=== PATIENT | male | born 1980 | race Caucasian/White ===

== ENCOUNTER 2017-10-27 03:43 | Inpatient (IN) | payer MEDICAID, SELFPAY ==
[2017-10-27] VITALS (18 sets, daily range): BP systolic 131–161; BP diastolic 74–83; PULSE 81–101; RESP 12–24; TEMP 36.8–37; O2SAT 77–95; BMI 53.8; BMI 42.6
--- NOTE | 2017-10-27 03:55 | CT_ITS ---
STUDY: CT BRAIN WITHOUT CONTRAST REASON FOR EXAM: Male, 37 years old. EtOH. History of schizophrenia. Patient is off psych meds. Patient was brought in for evaluation by the police. RADIATION DOSAGE (If Supplied By Facility): CTDIvol = ( 44.99 ) mGy, DLP = ( 829.85 ) mGycm TECHNIQUE: Transaxial CT imaging of the brain was performed without administration of intravenous contrast material. Individualized dose optimization techniques were used for this CT. COMPARISON: None. FINDINGS: Normal soft tissue structures. Normal calvarium. Normal size ventricles and extra-axial spaces for the patient's age. Normal white matter tracts of the cerebral hemispheres. Normal basal ganglia and thalami. Normal brainstem. Normal cerebellum. There is no intracranial hemorrhage. There are no findings of an acute ischemic infarction. Normal visualized paranasal sinuses. CT/Brain/Head without Contrast IMPRESSION: Normal unenhanced CT scan of the brain. Electronically Signed: Ramakrishna Manrique MD at 5:11 EDT , Service support ,
--- NOTE | 2017-10-27 03:55 | EKG12_ITS ---
Test Reason : MENTAL HEALTH Blood Pressure : / mmHG Vent. Rate : 085 BPM Atrial Rate : 085 BPM P-R Int : 164 ms QRS Dur : 104 ms QT Int : 388 ms P-R-T Axes : 080 015 056 degrees QTc Int : 461 ms Normal sinus rhythm with sinus arrhythmia Normal ECG Confirmed by ART HERNANDEZ, VENKATA ([id number]), assistant film editor BENSON LYNCH ([id number]) on 10/28/2017 3:14:46 PM Referred By: CHACHA Confirmed By:VENKATA CORDOVA MD
[2017-10-27 04:01] LABS: Bedside Glucose 128 mg/dL (70-110)
[2017-10-27] MEDS: Ipratropium/Albuterol Sulfate 3 ML AMPUL.NEB INHALATION ×2 (04:08→20:30)
[2017-10-27 04:16] LABS: Absolute Neutrophil Count 7.8 X10^3/uL (2.0-7.7); Basophil# 0.03 X10^3/uL; Basophil% 0.3 % (0-1); Eosinophil# 0.14 X10^3/uL; Eosinophils% 1.4 % (0-5); Hematocrit 46.7 % (40-54); Hemoglobin 15.1 g/dl (13.0-16.5); Lymphocyte % 11.1 % (19-41); Mean Corp Hgb Conc 32.3 g/gl (32-36); Mean Corpuscular Hgb 29.5 pg (27.0-32.0); Mean Corpuscular Volume 91.4 fL (80-94); Mean Platelet Vol. 9.9 fl (6.2-12.0); Monocyte# 0.85 X10^3/uL; Monocyte% 8.6 % (0-10); Neutrophil # 7.77 X10^3/uL (2.7-7.7); Neutrophil % 78.3 % (47-70); Platelet Count 286 K/mm3 (150-450); RBC Distribution Width CV 14.9 % (11.6-14.6); RBC Distribution Width SD 48.4 fl (35.1-43.9); Red Blood Count 5.11 M/mm3 (4.6-6.2); White Blood Count 9.9 K/mm3 (4.4-11.0)
[2017-10-27 04:27] LABS: POSITIVE COUNT NO; POSITIVE DIFFERENTIAL NO; POSITIVE MORPHOLOGY NO
[2017-10-27 04:32] LABS: ALB/GLOB Ratio 0.6 RATIO (0.9-2.4); AST(SGOT) 24 U/L (15-37); Alanine Aminotransfer ALT/SGPT 26 U/L (16-61); Albumin, Serum 2.7 g/dL (3.2-5.0); Alkaline Phosphatase 78 U/L (45-117); Anion Gap 7 (5-15); BUN 7 mg/dL (7-18); Calcium,Total 8.1 mg/dL (8.5-10.1); Chloride 105 mmol/L (98-107); Creatinine, Serum 0.58 mg/dL (0.70-1.30); EST Glomerular Filtration Rate 165 mL/min (>60); Est Glom Filt Rate - Afr Amer 200 mL/min (>60); Globulin 4.6 g/dL (2.2-4.2); Glucose 117 mg/dL (74-106); Potassium 3.7 mmol/L (3.5-5.1); Protein, Total 7.3 g/dL (6.4-8.2); Sodium Level 141 mmol/L (136-145)
--- NOTE | 2017-10-27 04:38 | RAD_ITS ---
STUDY: X-RAY CHEST REASON FOR EXAM: Male, 37 years old. Dyspnea. TECHNIQUE: Single AP portable view of the chest. COMPARISON: 12/09/2016. FINDINGS: The lungs are mildly underexpanded. There is no demonstrated pulmonary infiltrate. There is no demonstrated pleural abnormality. There is mild cardiac enlargement. Normal mediastinum and eladio. Normal visualized pulmonary arteries. Normal visualized aortic arch and descending thoracic aorta. Normal visualized thoracic spine. Normal visualized ribs, clavicles, and shoulders. There is no demonstrated abnormality of the visualized soft tissue structures of the upper abdomen. RAD/Chest 1 View (Portable) IMPRESSION: Cardiomegaly. No evidence for acute cardiopulmonary pathology. Electronically Signed: Ramakrishna Manrique MD at 5:19 EDT , Service support ,
--- NOTE | 2017-10-27 04:56 | NURSING ---
PATIENT GOT UP TO THE RR TO GET A URINE SPECIMEN. PATIENT VOIDED IN THE TOILET, AND THREW THE URINE CUP AWAY. PATIENT STATED I KEEP BLACKING OUT AND MY MIND ISN'T WORKING RIGHT.
--- NOTE | 2017-10-27 04:57 | NURSING ---
PATIENT DOES NOT KNOW MEDICATIONS OR ALLERGIES.
[2017-10-27 05:04] LABS: Alcohol, Blood (Medical)-Serum < 3.0 mg/dL
[2017-10-27 05:31] LABS: Allen Test POS; Base Excess 3 mmol/L (-2 to +2); Bicarbonate 28.4 mmol/L (22-26); Blood Gas Specimen Type ART; O2 Delivery Device Nasal Can; PO2 64 mmHG (75-100); SITE R Radial; SO2 90 % (95-99); Time Given 520; Total Carbon Dioxide 30 mmol/L; pCO2 51.6 mmHg (35-45); pH 7.35 (7.35-7.45)
[2017-10-27] MEDS: MethylPREDNISolone 125 MG/2 ML Vial IV (05:36)
[2017-10-27 05:51] LABS: BNP,B-Type NATRIURETIC PEPTIDE 8.5 pg/mL (0-100)
--- NOTE | 2017-10-27 06:06 | PCM.HP.STD ---
Problem List (1) COPD (chronic obstructive pulmonary disease) Status: Chronic Qualifiers: COPD type: unspecified COPD Qualified Code(s): J44.9 - Chronic obstructive pulmonary disease, unspecified (2) Morbid obesity Status: Chronic (3) SHANAE (obstructive sleep apnea) Status: Chronic (4) Chronic respiratory failure with hypoxia Status: Chronic (5) Acute respiratory failure with hypoxia and hypercapnia Status: Acute (6) COPD exacerbation Status: Acute (7) Tobacco use Status: Chronic (8) GERD (gastroesophageal reflux disease) Status: Chronic Qualifiers: Esophagitis presence: esophagitis presence not specified Qualified Code(s): K21.9 - Gastro-esophageal reflux disease without esophagitis (9) Bipolar disorder Status: Chronic Qualifiers: Active/Remission status: remission status unspecified Qualified Code(s): F31.9 - Bipolar disorder, unspecified (10) Schizophrenia Status: Chronic Qualifiers: Schizophrenia type: unspecified Qualified Code(s): F20.9 - Schizophrenia, unspecified (11) HTN (hypertension) Status: Chronic Qualifiers: Hypertension type: essential hypertension Qualified Code(s): I10 - Essential (primary) hypertension History of Present Illness Date of Admission: 10/27/17 Chief Complaint: Found per Police, attempting to get into house The patient is a 37 y/o M w/ PMHx: Bipolar d/o, Schizophrenia, GERD, Morbid Obesity, Tobacco use, SHANAE, Chronic COPD w/ Chronic Hypoxic Respiratory Failure, HTN who presents to the [facility] ED on 10/27/17 who presents to the [facility] ED on 02/04/15 w/ history of being found by police attempting to enter a home, noting that he thought it was his families home with recent EtOH intake, unclear possible drug intake and possibly off his psychiatric regimen. He is sluggish but awakens and does admit to recent cough, mildly productive with possible fever, dyspnea and wheezing over the last several days. He denies BL LE pain, worsened edema or redness, notes they are routinely mildly red. In the ED work-up included T 98.4, HR 101, BP 145/81, RR 24, initially 77% on RA-->94% on 3L NC, CBC w/ WBC 9.9, Hgb 15.1, Plts 286 with L shift, ABG w/ pH 7.35, Bicarb 28.4, O2 90%, pCO2 51.6, pO2 64, CMP w/ glucose 117, trop < 0.02, EKG with SR without acute evidence of ischemia, CXR with chronic changes, CT head without acute findings. In the ED patient administered duoneb, solumedrol, rocephin. Past Medical History Past Medical History (Chronic Problems): Chronic Problems COPD (chronic obstructive pulmonary disease) (Chronic) Morbid obesity (Chronic) SHANAE (obstructive sleep apnea) (Chronic) Chronic respiratory failure with hypoxia (Chronic) Tobacco use (Chronic) HTN (hypertension) (Chronic) GERD (gastroesophageal reflux disease) (Chronic) Bipolar disorder (Chronic) Schizophrenia (Chronic) Allergies PINK EYE MEDICATION Allergy (Uncoded 10/27/17 05:09) Unknown Home Medications: Ambulatory Orders Medication Instructions Recorded Aspirin [Aspirin, Baby] 81 mg PO DAILY@0800 10/27/17 Haloperidol [Haldol] 10 mg PO DAILY 10/27/17 Lisinopril [Prinivil] 10 mg PO DAILY 10/27/17 Loratadine [Loratadine] 10 mg PO DAILY 10/27/17 Surgical History: no surgical history Psychiatric History: Bipolar, Schizophrenia Lives: Alone Smoking Status: Current every day smoker Tobacco Use: Cigarettes Alcohol: Occasional Drugs: - - Prior history, pending UDS, currently poor historian. - *Family History Maternal History Items: No pertinent history Paternal History Items: No pertinent history Review of Systems Constitutional: Reports: Fever, Malaise, Weakness, Fatigue. Denies: Chills, Weight Change HEENT: Denies: Head Aches, Sinus Congestion, Sinus Drainage Cardiovascular: Denies: Chest Pain, Palpitations Respiratory: Reports: Cough, Shortness of Breath, Shortness of breath at rest, Shortness of breath upon exertion, Sputum production, Wheezing Gastrointestinal: Denies: Abdominal Pain, Nausea, Vomiting Genitourinary: Denies: Dysuria Musculoskeletal: Denies: Joint Pain, Joint Tenderness Skin: Reports: Skin Changes. Denies: Rash, Wounds Neurological: Denies: Numbness, Tingling, Focal weakness Psychiatric: Reports: Anxiety, Depression. Denies: Homicidal Ideations, Suicidal Ideations Hematologic/ Lymphatic: Denies: Easy Bruising, Easy Bleeding VTE Information - Inpt Only VTE Present on Admission: No VTE Mechan Device Prophylaxis: SCD's VTE Pharm Prophylaxis ordered?: Yes Patient Problems: Active and Suspected Problems Acute respiratory failure with hypoxia and hypercapnia (Acute) COPD exacerbation (Acute) Subjective: Seated upright in the ED bed, sluggish, intermittently awakening, mildly gruff. Objective: Physical Examination: General: awakens intermittently, not markedly alert, oriented to self and some recent events, poor historian, mildly agitated. Skin: normal color, turgor, no icterus, cyanosis except BL LE chronic venous stasis skin changes. HEENT: AT/NC, EOMI, PERRLA, dry, injected scleral BL. Lungs: Diminished bases, poor effort, occasional expiratory wheezing noted. Heart: Regular rate and rhythm; no gallop, rub audible, distant. Abdomen: soft, morbidly obese, NTTP, ND, normal BS. Extremities: no cyanosis, clubbing, BL LE 1+ pitting edema ankle, BL LE distal mild redness, more consistent with chronic venous stasis. Neurological: awakens intermittently, not markedly alert, oriented to self and some recent events, poor historian, mildly agitated; cognitive function not intact; pupils equally reactive to light and accomodation, injected; cranial nerves II-XII grossly normal, moving all 4 extremities, strength difficult to assess, severely globally decreased. Psychiatric: affect appears mildly agitated, no acute evidence of depressive or anxiety feelings. - Physical Exam Vital Signs Temp Pulse Resp BP Pulse Ox 98.4 F 99 24 H 145/81 H 92 10/27/17 05:12 10/27/17 05:12 10/27/17 05:12 10/27/17 05:12 10/27/17 05:12 Oxygen Flow Rate (L/min) 3 Oxygen Delivery Method Nasal Cannula Weight: 313 lb 7.957 oz Body Mass Index (BMI) 53.8 Laboratory Tests Past 24 Hrs 10/27/17 10/27/17 10/27/17 04:08 04:08 04:08 WBC 9.9 RBC 5.11 Hgb 15.1 Hct 46.7 MCV 91.4 MCH 29.5 MCHC 32.3 RDW 14.9 H RDW Differential 48.4 H Plt Count 286 MPV 9.9 Immature Gran % (Auto) 0.300 Neut % (Auto) 78.3 H Lymph % (Auto) 11.1 L [place] % (Auto) 8.6 Eos % (Auto) 1.4 Baso % (Auto) 0.3 Absolute Neuts (auto) 7.8 H Absolute Lymphs (auto) 1.10 Total Counted Not Reportable Specimen Type Sample Site pH Bicarbonate Actual POC Total CO2 Base Excess O2 Saturation ABG pCO2 ABG pO2 Darnell Test O2 Delivery Device Liter Flow Blood Gas Notified Whom Blood Gas Notified Time Sodium 141 Potassium 3.7 Chloride 105 Carbon Dioxide 29.0 Anion Gap 7 BUN 7 Creatinine 0.58 L Estim Creat Clear Calc 144.60 Est GFR (MDRD) Af Amer 200 Est GFR (MDRD) Non-Af 165 BUN/Creatinine Ratio 12.0 Glucose 117 H Calcium 8.1 L Total Bilirubin 0.40 AST 24 ALT 26 Alkaline Phosphatase 78 Troponin I B-Natriuretic Peptide Total Protein 7.3 Albumin 2.7 L Globulin 4.6 H Albumin/Globulin Ratio 0.6 L Ethyl Alcohol < 3.0 10/27/17 10/27/17 10/27/17 04:08 04:08 05:27 WBC RBC Hgb Hct MCV MCH MCHC RDW RDW Differential Plt Count MPV Immature Gran % (Auto) Neut % (Auto) Lymph % (Auto) [place] % (Auto) Eos % (Auto) Baso % (Auto) Absolute Neuts (auto) Absolute Lymphs (auto) Total Counted Specimen Type ART Sample Site R Radial pH 7.35 Bicarbonate Actual 28.4 H POC Total CO2 30 Base Excess 3 H O2 Saturation 90 L ABG pCO2 51.6 H ABG pO2 64 L Darnell Test POS O2 Delivery Device Nasal Can Liter Flow 3.0 Blood Gas Notified Whom ED MD Blood Gas Notified Time 520 Sodium Potassium Chloride Carbon Dioxide Anion Gap BUN Creatinine Estim Creat Clear Calc Est GFR (MDRD) Af Amer Est GFR (MDRD) Non-Af BUN/Creatinine Ratio Glucose Calcium Total Bilirubin AST ALT Alkaline Phosphatase Troponin I < 0.02 B-Natriuretic Peptide 8.5 Total Protein Albumin Globulin Albumin/Globulin Ratio Ethyl Alcohol POC Glucose 10/27/17 03:58 POC Glucose 128 H Assessment/Plan Active and Suspected Problems Acute respiratory failure with hypoxia and hypercapnia (Acute) COPD exacerbation (Acute) The patient is a 37 y/o M w/ PMHx: Bipolar d/o, Schizophrenia, GERD, Morbid Obesity, Tobacco use, SHANAE, Chronic COPD w/ Chronic Hypoxic Respiratory Failure, HTN who presents to the [facility] ED on 4/16/18, who presents to the [facility] ED on 02/04/15 w/ history of being found by police attempting to enter a home, noting that he thought it was his families home with recent EtOH intake, unclear possible drug intake and possibly off his psychiatric regimen with recent possible mildly productive cough, dyspnea and wheezing not using his rx 2L NC. (1) Acute Hypoxic and Hypercarbic Respiratory Failure on Chronic Hypoxic Respiratory Failure secondary to Acute on chronic COPD exacerbation: Will admit to PCU, maintain on oxygen with wean as tolerated to home oxygen supplementation, continue ATC duonebs, PRN albuterol, IV methylprednisolone, HOB, IS parameters, IV rocephin to also concurrently treat possible #2, pending sputum cultures. (2) BL LE ? Extremity Cellulitis, Noted per ED, Suspect more likely Chronic Venous Stasis Skin Changes: Will as noted maintain on IV rocephin, continue affected extremity elevation above heart when seated and in bed, monitor erythema outline with VS checks, ACEI wraps. (3) Encephalopathy: Multifactorial, possible drug usage, EtOH ingestion, acute hypoxic and hypercarbic (mild) respiratory failure, continue treatment of #1, #2 and #4. (4) Bipolar d/o, Schizophrenia: Off medications, unclear timeline, poor historian, restart home oral haldol regimen, PRN haldol. Once medically appropriate may need discharge to psychiatric facility. (5) Hypertension: Restart home lisinopril, PRN hydralazine. (6) Morbid Obesity: Weight loss and lifestyle changes encouraged, nutrition consulted. (7) Hyperglycemia: Admission glucose mildly elevated, prior HgbA1c 6.4% remotely, will repeat HgBA1c. (8) Tobacco Abuse: Encouraged cessation, inpatient consultation per RT, NR if desired. (9) SHANAE: Unclear if on CPAP/BIPAP q HS, noted visits for assessment. (10) GERD: Famotidine. (11) DVT prophylaxis: SCDs, lovenox. Code Visit Inpatient E&M: 19953 Init Hosp L3
[2017-10-27] MEDS: Ceftriaxone 1 GM/50 ML BAG IV (06:09)
--- NOTE | 2017-10-27 06:16 | HP.PCM_ITS ---
Problem List (1) COPD (chronic obstructive pulmonary disease) Status: Chronic Qualifiers: COPD type: unspecified COPD Qualified Code(s): J44.9 - Chronic obstructive pulmonary disease, unspecified (2) Morbid obesity Status: Chronic (3) SHANAE (obstructive sleep apnea) Status: Chronic (4) Chronic respiratory failure with hypoxia Status: Chronic (5) Acute respiratory failure with hypoxia and hypercapnia Status: Acute (6) COPD exacerbation Status: Acute (7) Tobacco use Status: Chronic (8) GERD (gastroesophageal reflux disease) Status: Chronic Qualifiers: Esophagitis presence: esophagitis presence not specified Qualified Code(s) : K21.9 - Gastro-esophageal reflux disease without esophagitis (9) Bipolar disorder Status: Chronic Qualifiers: Active/Remission status: remission status unspecified Qualified Code(s): F31.9 - Bipolar disorder, unspecified (10) Schizophrenia Status: Chronic Qualifiers: Schizophrenia type: unspecified Qualified Code(s): F20.9 - Schizophrenia, unspecified (11) HTN (hypertension) Status: Chronic Qualifiers: Hypertension type: essential hypertension Qualified Code(s): I10 - Essential (primary) hypertension History of Present Illness Date of Admission: 10/27/17 Chief Complaint: Found per Police, attempting to get into house The patient is a 37 y/o M w/ PMHx: Bipolar d/o, Schizophrenia, GERD, Morbid Obesity, Tobacco use, SHANAE, Chronic COPD w/ Chronic Hypoxic Respiratory Failure, HTN who presents to the [facility] ED on 10/27/17 who presents to the [facility] ED on 02/04/15 w/ history of being found by police attempting to enter a home, noting that he thought it was his families home with recent EtOH intake, unclear possible drug intake and possibly off his psychiatric regimen. He is sluggish but awakens and does admit to recent cough, mildly productive with possible fever, dyspnea and wheezing over the last several days. He denies BL LE pain, worsened edema or redness, notes they are routinely mildly red. In the ED work-up included T 98.4 , HR 101, BP 145/81, RR 24, initially 77% on RA-->94% on 3L NC, CBC w/ WBC 9.9, Hgb 15.1, Plts 286 with L shift, ABG w/ pH 7.35, Bicarb 28.4, O2 90%, pCO2 51.6 , pO2 64, CMP w/ glucose 117, trop < 0.02, EKG with SR without acute evidence of ischemia, CXR with chronic changes, CT head without acute findings. In the ED patient administered duoneb, solumedrol, rocephin. Past Medical History Past Medical History (Chronic Problems): Chronic Problems COPD (chronic obstructive pulmonary disease) (Chronic) Morbid obesity (Chronic) SHANAE (obstructive sleep apnea) (Chronic) Chronic respiratory failure with hypoxia (Chronic) Tobacco use (Chronic) HTN (hypertension) (Chronic) GERD (gastroesophageal reflux disease) (Chronic) Bipolar disorder (Chronic) Schizophrenia (Chronic) Allergies PINK EYE MEDICATION Allergy (Uncoded 10/27/17 05:09) Unknown Home Medications: Ambulatory Orders Medication Instructions Recorded Aspirin [Aspirin, Baby] 81 mg PO DAILY@0800 10/27/17 Haloperidol [Haldol] 10 mg PO DAILY 10/27/17 Lisinopril [Prinivil] 10 mg PO DAILY 10/27/17 Loratadine [Loratadine] 10 mg PO DAILY 10/27/17 Surgical History: no surgical history Psychiatric History: Bipolar, Schizophrenia Lives: Alone Smoking Status: Current every day smoker Tobacco Use: Cigarettes Alcohol: Occasional Drugs: - - Prior history, pending UDS, currently poor historian. - *Family History Maternal History Items: No pertinent history Paternal History Items: No pertinent history Review of Systems Constitutional: Reports: Fever, Malaise, Weakness, Fatigue. Denies: Chills, Weight Change HEENT: Denies: Head Aches, Sinus Congestion, Sinus Drainage Cardiovascular: Denies: Chest Pain, Palpitations Respiratory: Reports: Cough, Shortness of Breath, Shortness of breath at rest, Shortness of breath upon exertion, Sputum production, Wheezing Gastrointestinal: Denies: Abdominal Pain, Nausea, Vomiting Genitourinary: Denies: Dysuria Musculoskeletal: Denies: Joint Pain, Joint Tenderness Skin: Reports: Skin Changes. Denies: Rash, Wounds Neurological: Denies: Numbness, Tingling, Focal weakness Psychiatric: Reports: Anxiety, Depression. Denies: Homicidal Ideations, Suicidal Ideations Hematologic/ Lymphatic: Denies: Easy Bruising, Easy Bleeding VTE Information - Inpt Only VTE Present on Admission: No VTE Mechan Device Prophylaxis: SCD's VTE Pharm Prophylaxis ordered?: Yes Patient Problems: Active and Suspected Problems Acute respiratory failure with hypoxia and hypercapnia (Acute) COPD exacerbation (Acute) Subjective: Seated upright in the ED bed, sluggish, intermittently awakening, mildly gruff. Objective: Physical Examination: General: awakens intermittently, not markedly alert, oriented to self and some recent events, poor historian, mildly agitated. Skin: normal color, turgor, no icterus, cyanosis except BL LE chronic venous stasis skin changes. HEENT: AT/NC, EOMI, PERRLA, dry, injected scleral BL. Lungs: Diminished bases, poor effort, occasional expiratory wheezing noted. Heart: Regular rate and rhythm; no gallop, rub audible, distant. Abdomen: soft, morbidly obese, NTTP, ND, normal BS. Extremities: no cyanosis, clubbing, BL LE 1+ pitting edema ankle, BL LE distal mild redness, more consistent with chronic venous stasis. Neurological: awakens intermittently, not markedly alert, oriented to self and some recent events, poor historian, mildly agitated; cognitive function not intact; pupils equally reactive to light and accomodation, injected; cranial nerves II-XII grossly normal, moving all 4 extremities, strength difficult to assess, severely globally decreased. Psychiatric: affect appears mildly agitated, no acute evidence of depressive or anxiety feelings. - Physical Exam Vital Signs Temp Pulse Resp BP Pulse Ox 98.4 F 99 24 H 145/81 H 92 10/27/17 05:12 10/27/17 05:12 10/27/17 05:12 10/27/17 05:12 10/27/17 05:12 Oxygen Flow Rate (L/min) 3 Oxygen Delivery Method Nasal Cannula Weight: 313 lb 7.957 oz Body Mass Index (BMI) 53.8 Laboratory Tests Past 24 Hrs 10/27/17 10/27/17 10/27/17 04:08 04:08 04:08 WBC 9.9 RBC 5.11 Hgb 15.1 Hct 46.7 MCV 91.4 MCH 29.5 MCHC 32.3 RDW 14.9 H RDW Differential 48.4 H Plt Count 286 MPV 9.9 Immature Gran % (Auto) 0.300 Neut % (Auto) 78.3 H Lymph % (Auto) 11.1 L [place] % (Auto) 8.6 Eos % (Auto) 1.4 Baso % (Auto) 0.3 Absolute Neuts (auto) 7.8 H Absolute Lymphs (auto) 1.10 Total Counted Not Reportable Specimen Type Sample Site pH Bicarbonate Actual POC Total CO2 Base Excess O2 Saturation ABG pCO2 ABG pO2 Darnell Test O2 Delivery Device Liter Flow Blood Gas Notified Whom Blood Gas Notified Time Sodium 141 Potassium 3.7 Chloride 105 Carbon Dioxide 29.0 Anion Gap 7 BUN 7 Creatinine 0.58 L Estim Creat Clear Calc 144.60 Est GFR (MDRD) Af Amer 200 Est GFR (MDRD) Non-Af 165 BUN/Creatinine Ratio 12.0 Glucose 117 H Calcium 8.1 L Total Bilirubin 0.40 AST 24 ALT 26 Alkaline Phosphatase 78 Troponin I B-Natriuretic Peptide Total Protein 7.3 Albumin 2.7 L Globulin 4.6 H Albumin/Globulin Ratio 0.6 L Ethyl Alcohol < 3.0 10/27/17 10/27/17 10/27/17 04:08 04:08 05:27 WBC RBC Hgb Hct MCV MCH MCHC RDW RDW Differential Plt Count MPV Immature Gran % (Auto) Neut % (Auto) Lymph % (Auto) [place] % (Auto) Eos % (Auto) Baso % (Auto) Absolute Neuts (auto) Absolute Lymphs (auto) Total Counted Specimen Type ART Sample Site R Radial pH 7.35 Bicarbonate Actual 28.4 H POC Total CO2 30 Base Excess 3 H O2 Saturation 90 L ABG pCO2 51.6 H ABG pO2 64 L Darnell Test POS O2 Delivery Device Nasal Can Liter Flow 3.0 Blood Gas Notified Whom ED MD Blood Gas Notified Time 520 Sodium Potassium Chloride Carbon Dioxide Anion Gap BUN Creatinine Estim Creat Clear Calc Est GFR (MDRD) Af Amer Est GFR (MDRD) Non-Af BUN/Creatinine Ratio Glucose Calcium Total Bilirubin AST ALT Alkaline Phosphatase Troponin I < 0.02 B-Natriuretic Peptide 8.5 Total Protein Albumin Globulin Albumin/Globulin Ratio Ethyl Alcohol POC Glucose 10/27/17 03:58 POC Glucose 128 H Assessment/Plan Active and Suspected Problems Acute respiratory failure with hypoxia and hypercapnia (Acute) COPD exacerbation (Acute) The patient is a 37 y/o M w/ PMHx: Bipolar d/o, Schizophrenia, GERD, Morbid Obesity, Tobacco use, SHANAE, Chronic COPD w/ Chronic Hypoxic Respiratory Failure, HTN who presents to the [facility] ED on 4/16/18, who presents to the [facility] ED on w/ history of being found by police attempting to enter a home, noting that he thought it was his families home with recent EtOH intake, unclear possible drug intake and possibly off his psychiatric regimen with recent possible mildly productive cough, dyspnea and wheezing not using his rx 2L NC. (1) Acute Hypoxic and Hypercarbic Respiratory Failure on Chronic Hypoxic Respiratory Failure secondary to Acute on chronic COPD exacerbation: Will admit to PCU, maintain on oxygen with wean as tolerated to home oxygen supplementation , continue ATC duonebs, PRN albuterol, IV methylprednisolone, HOB, IS parameters , IV rocephin to also concurrently treat possible #2, pending sputum cultures. (2) BL LE ? Extremity Cellulitis, Noted per ED, Suspect more likely Chronic Venous Stasis Skin Changes: Will as noted maintain on IV rocephin, continue affected extremity elevation above heart when seated and in bed, monitor erythema outline with VS checks, ACEI wraps. (3) Encephalopathy: Multifactorial, possible drug usage, EtOH ingestion, acute hypoxic and hypercarbic (mild) respiratory failure, continue treatment of #1, # 2 and #4. (4) Bipolar d/o, Schizophrenia: Off medications, unclear timeline, poor historian, restart home oral haldol regimen, PRN haldol. Once medically appropriate may need discharge to psychiatric facility. (5) Hypertension: Restart home lisinopril, PRN hydralazine. (6) Morbid Obesity: Weight loss and lifestyle changes encouraged, nutrition consulted. (7) Hyperglycemia: Admission glucose mildly elevated, prior HgbA1c 6.4% remotely , will repeat HgBA1c. (8) Tobacco Abuse: Encouraged cessation, inpatient consultation per RT, NR if desired. (9) SHANAE: Unclear if on CPAP/BIPAP q HS, noted visits for assessment. (10) GERD: Famotidine. (11) DVT prophylaxis: SCDs, lovenox. Code Visit Inpatient E&M: 53799 Init Hosp L3
--- NOTE | 2017-10-27 06:43 | NURSING ---
129 RESP FAILURE, COPD EXAC, ? LE CELLULITIS WHITE
--- NOTE | 2017-10-27 07:02 | ED.VISSUMM ---
- ER Visit Summary Date of Service: 10/27/17 Chief Complaint: Altered mental status History of Present Illness: The patient is a 37 M brought in by police. He has a history of schizophrenia and according to police, he is not taking his medications. Tonight he was breaking into a house. He was confused. He thought that it was his grandmother's house. Patient reports taking 1 shot of hard alcohol. He also has a history of COPD and is on oxygen, 2 L, on demand. Smoker. Denies drug use. He is not compliant with his medications. Physical Examination: Vital signs unremarkable. 77% on room air. Head and neck atraumatic. Heart regular. Lungs sounds show wheezing in all young with expiration. Abdomen soft and nontender. Bilateral lower extremities show erythema and warmth from the mid calf and distally. Pulses strong and equal. Skin intact. Patient is somnolent but arouses to voice and sometimes just when I walk into the room. He is oriented to person. He does appear to be responding to internal stimuli. At other times he shows good concentration and can hold a normal conversation. No focal or lateralizing neurologic abnormalities grossly. Test Results: EKG showed sinus rhythm at a rate of 85. No sign of ischemia or infarction. CBC normal. CMP unremarkable. Urinalysis pending. Troponin and BNP unremarkable. Tox screen pending. Alcohol negative. ABG showed a pH of 7.34, CO2 51.6, and O2 64. Chest x-ray showed no acute abnormalities. Cardiomegaly noted. CT head normal. Emergency Department Course and Treatment: Patient received psych precautions. He was placed on oxygen, 3 L, and was 92% on reevaluation. He was treated with a DuoNeb and this resolved his wheezing. He also received Solu-Medrol. Cellulitis of his lower extremities was treated with Rocephin. He is not septic. His mental status improved on reevaluations. He was not treated in the emergency department with psychiatric medications. Tox screen and urinalysis are pending at the time of this dictation. I spoke with the hospitalist. He has multiple medical issues and is not stable to go to a psychiatric hospital. Hospitalist will evaluate and consult counseling. Treatment Plan: As above Disposition: Admission Impression: 1. COPD exacerbation 2. Cellulitis of bilateral lower extremities 3. Schizophrenia This note was generated with Dragon dictation software. It may contain incorrect words, spelling, and punctuation that were not noted in review of the chart prior to signing ED Disposition - Plan for ED Patient: Chief Complaint: Mental Health
[2017-10-27 07:55] LABS: Bedside Glucose 120 mg/dL (70-110)
[2017-10-27 08:28] LABS: Hemoglobin A1c 5.9 % (4.2-6.3)
[2017-10-27 08:35] LABS: Magnesium 1.9 mg/dL (1.6-2.6); Thyroid Stim Hormone (TSH) 2.13 uIU/mL (0.358-3.74)
--- NOTE | 2017-10-27 08:38 | CPS ---
Pt refusing all respiratory orders.
[2017-10-27] MEDS: 0.9% Normal Saline 1,000 ML 125 ML IV ×2 (09:24→15:47)
[2017-10-27] MEDS: Loratadine 10 MG Tablet PO (10:02)
[2017-10-27] MEDS: guaiFENesin 1,200 MG Tablet 1200 MG PO ×2 (10:02→22:08)
[2017-10-27] MEDS: Famotidine 20 MG Tablet PO ×2 (10:02→22:08)
[2017-10-27] MEDS: Lisinopril 10 MG Tablet PO (10:02)
[2017-10-27] MEDS: Aspirin 81 MG TAB.CHEW PO (10:02)
--- NOTE | 2017-10-27 11:13 | NURSING ---
pt refused 1100 blood sugar check
[2017-10-27 12:08] LABS: Mucous, Urine 0 SEEN /hpf (<or=2+)
[2017-10-27 12:11] LABS: Color, Urine Yellow (Yellow); Glucose, Dipstick Normal (Normal); Ketone-Dipstick 50 mg/dl (Negative); Leukocyte Esterase-Dipstick 25 /ul (Negative); Nitrite-Dipstick Negative (Negative); Occult Blood-Urine 10 /ul (Negative); Protein-Dipstick 30 mg/dl (Negative); Specific Gravity, Urine 1.015 (1.002-1.030); Urine Bilirubin Dipstick Negative (Negative); Urine Clarity Clear (Clear); Urine Urobilinogen 1 mg/dl (Normal)
[2017-10-27 12:32] LABS: Amphetamine Urine VISTA NEGATIVE (<1000 ng/mL); Barbiturate Urine VISTA NEGATIVE (< 200 ng/mL); Benzodiazepine Urine VISTA NEGATIVE (< 200 ng/mL); Cocaine Urine VISTA NEGATIVE (< 300 ng/mL); Ecstacy Urine VISTA NEGATIVE (< 500 ng/mL); Methadone Urine VISTA NEGATIVE (< 300 ng/mL); PCP Urine VISTA NEGATIVE (< 25 ng/mL); THC Urine VISTA NEGATIVE (< 50 ng/mL); Vista UDS pH Range 5
[2017-10-27 12:34] LABS: Bacteria RARE /hpf (None Seen); Red Blood Cells-Urine 0-5 SEEN /hpf (0-5); Squamous Epithelial Cells - UA 0-5 SEEN /hpf (0-5); White Blood Cells 0-5 SEEN /hpf (0-5)
--- NOTE | 2017-10-27 13:02 | CASEMGMT ---
SW reviewed chart due to patient's mental health. Patient was active in the past with [facility]. SW called [facility]'s Case Management Dept. and patient does have a clinical case manager named Tevin Culver. SW left a message for Tevin Culver requesting a return call. There was some mention that patient may have a guardian. JUNE called [facility] [facility] and they have no guardian on file for patient. Await return call from Tevin Culver from [facility]. Elisabet GAONA MSW
--- NOTE | 2017-10-27 16:16 | PCM.PN.HOSP ---
Patient Problems: Active and Suspected Problems Acute respiratory failure with hypoxia and hypercapnia (Acute) COPD exacerbation (Acute) Subjective: Patient was asking about what caused his unconscious state. Patient stated that he smokes something that was hand rolled and he thought was a cigarette. He thinks it may have been marijuana. Vitals/I&O's: Vital Signs Temp Pulse Resp BP Pulse Ox 36.9 C 83 16 148/76 H 93 10/27/17 13:21 10/27/17 15:00 10/27/17 13:21 10/27/17 13:21 10/27/17 13:21 Oxygen Flow Rate (L/min) 3 Oxygen Delivery Method Nasal Cannula Weight: 138.6 kg Body Mass Index (BMI) 42.6 Intake and Output for Last 24 Hours 10/25/17 10/26/17 10/27/17 23:59 23:59 23:59 Intake Total 928 / 928 Balance 928 / 928 General: Confused HEENT: Atraumatic, Normocephalic Neck: No Nodes, Thyroid Normal Size and Texture Lungs: Clear to auscultation, Normal air movement, No rhonchi, No wheeze Cardiovascular: Regular rate, Regular Rhythm, Normal S1, Normal S2, No murmurs Abdomen: Bowel Sounds Present, Soft, Non Tender, Non-Distended, No Hepato-splenomegaly Extremities: No edema, No Calf Tenderness Skin: No rashes, No breakdown Psych/Mental Status: Normal Affect, Appropriate Laboratory Results 10/27/17 07:49: POC Glucose 120 H 10/27/17 07:55: Hemoglobin A1c 5.9 10/27/17 12:00: Urine Opiates Screen NEGATIVE, Urine Methadone Screen NEGATIVE, Ur Barbiturates Screen NEGATIVE, Ur Phencyclidine Scrn NEGATIVE, Ur Amphetamines Screen NEGATIVE, U Methamphetamin-MDMA NEGATIVE, U Benzodiazepines Scrn NEGATIVE, Urine Cocaine Screen NEGATIVE, U Cannabinoids Screen NEGATIVE, Ur Drug Screen Comment 10/27/17 12:00: Urine Color Yellow, Urine Clarity Clear, Urine pH 6.0, Ur Specific [place] 1.015, Urine Protein 30 H, Urine Glucose (UA) Normal, Urine Ketones 50 H, Urine Occult Blood 10 H, Urine Nitrite Negative, Urine Bilirubin Negative, Urine Urobilinogen 1 H, Ur Leukocyte Esterase 25 H, Urine RBC 0-5 SEEN, Urine WBC 0-5 SEEN, Ur Squamous Epith Cells 0-5 SEEN, Urine Bacteria RARE, Urine Mucus 0 SEEN Current Medications Acetaminophen (Tylenol) 650 mg PO Q6H PRN PRN PRN Reason: Mild Pain (scale 0-3)/T>100.7 Al Hydroxide/Mg Hydroxide (Mylanta Ii) 30 ml PO Q6H PRN PRN PRN Reason: Gastric burning Albuterol Sulfate (Ventolin Aerosols) 2.5 mg INHALATION Q2H PRN PRN PRN Reason: SHORTNESS OF BREATH Albuterol/Ipratropium (Duoneb) 3 ml INHALATION Q4H.RT [facility] Last Admin: 10/27/17 15:30 Dose: Not Given Aspirin (Aspirin, Baby) 81 mg PO DAILY@0800 [facility] Last Admin: 10/27/17 10:02 Dose: 81 mg Dextrose (D50w Syringe) 0 gm IV X1 PRN; Protocol PRN Reason: Hypoglycemia Enoxaparin Sodium (Lovenox) 40 mg SC DAILY@1000 [facility] Last Admin: 10/27/17 10:06 Dose: Not Given Famotidine (Pepcid) 20 mg PO BID [facility] Last Admin: 10/27/17 10:02 Dose: 20 mg Glucagon () 1 mg IM .X1 PRN PRN Reason: Hypoglycemia Guaifenesin (Mucinex) 1,200 mg PO BID [facility] Last Admin: 10/27/17 10:02 Dose: 1,200 mg Haloperidol Lactate (Haldol) 1 - 2 mg IV Q4H PRN PRN PRN Reason: AGITATION Hydralazine HCl (Apresoline Iv) 10 mg IV Q4H PRN PRN PRN Reason: SBP > 160 Sodium Chloride () 1,000 mls @ 125 mls/hr IV .Q8H [facility] Last Admin: 10/27/17 15:47 Dose: 125 mls/hr Ceftriaxone Sodium (Rocephin) 1 gm in 50 mls @ 100 mls/hr IV Q24H [facility] Lisinopril (Zestril) 10 mg PO DAILY [facility] Last Admin: 10/27/17 10:02 Dose: 10 mg Loratadine (Claritin) 10 mg PO DAILY [facility] Last Admin: 10/27/17 10:02 Dose: 10 mg Magnesium Hydroxide (Milk Of Magnesia) 30 ml PO DAILY PRN PRN Reason: Constipation Ondansetron HCl (Zofran) 4 mg IV Q8H PRN PRN PRN Reason: NAUSEA Sodium Chloride () 5 - 30 ml IV UD PRN PRN Reason: SALINE FLUSH Medical Necessity - Tobacco Use Smoking Status: Current every day smoker Tobacco Use: Cigarettes Assessment/Plan Active and Suspected Problems Acute respiratory failure with hypoxia and hypercapnia (Acute) COPD exacerbation (Acute) 1. Acute hypoxic and hypercapnic respiratory failure Patient's pulse ox was down to 77% on room air. Currently in the 90s on 3 L nasal cannula. 2. Acute exacerbation of COPD No evidence of any pneumonia on chest x-ray, so I will discontinue the ceftriaxone. Add prednisone and continue with bronchodilators 3. Lower extremity erythema No evidence of cellulitis at this time, therefore I will discontinue the antibiotics Suspect related with lymphedematous changes. Check an echocardiogram since the patient has heart strain. 4. DVT prophylaxis with Lovenox Code Visit Inpatient E&M: 66002 Subs Hosp L2
--- NOTE | 2017-10-27 16:23 | PN_ITS ---
Patient Problems: Active and Suspected Problems Acute respiratory failure with hypoxia and hypercapnia (Acute) COPD exacerbation (Acute) Subjective: Patient was asking about what caused his unconscious state. Patient stated that he smokes something that was hand rolled and he thought was a cigarette. He thinks it may have been marijuana. Vitals/I&O's: Vital Signs Temp Pulse Resp BP Pulse Ox 36.9 C 83 16 148/76 H 93 10/27/17 13:21 10/27/17 15:00 10/27/17 13:21 10/27/17 13:21 10/27/17 13:21 Oxygen Flow Rate (L/min) 3 Oxygen Delivery Method Nasal Cannula Weight: 138.6 kg Body Mass Index (BMI) 42.6 Intake and Output for Last 24 Hours 10/25/17 10/26/17 10/27/17 23:59 23:59 23:59 Intake Total 928 / 928 Balance 928 / 928 General: Confused HEENT: Atraumatic, Normocephalic Neck: No Nodes, Thyroid Normal Size and Texture Lungs: Clear to auscultation, Normal air movement, No rhonchi, No wheeze Cardiovascular: Regular rate, Regular Rhythm, Normal S1, Normal S2, No murmurs Abdomen: Bowel Sounds Present, Soft, Non Tender, Non-Distended, No Hepato- splenomegaly Extremities: No edema, No Calf Tenderness Skin: No rashes, No breakdown Psych/Mental Status: Normal Affect, Appropriate Laboratory Results 10/27/17 07:49: POC Glucose 120 H 10/27/17 07:55: Hemoglobin A1c 5.9 10/27/17 12:00: Urine Opiates Screen NEGATIVE, Urine Methadone Screen NEGATIVE, Ur Barbiturates Screen NEGATIVE, Ur Phencyclidine Scrn NEGATIVE, Ur Amphetamines Screen NEGATIVE, U Methamphetamin-MDMA NEGATIVE, U Benzodiazepines Scrn NEGATIVE, Urine Cocaine Screen NEGATIVE, U Cannabinoids Screen NEGATIVE, Ur Drug Screen Comment 10/27/17 12:00: Urine Color Yellow, Urine Clarity Clear, Urine pH 6.0, Ur Specific [place] 1.015, Urine Protein 30 H, Urine Glucose (UA) Normal, Urine Ketones 50 H, Urine Occult Blood 10 H, Urine Nitrite Negative, Urine Bilirubin Negative, Urine Urobilinogen 1 H, Ur Leukocyte Esterase 25 H, Urine RBC 0-5 SEEN , Urine WBC 0-5 SEEN, Ur Squamous Epith Cells 0-5 SEEN, Urine Bacteria RARE, Urine Mucus 0 SEEN Current Medications Acetaminophen (Tylenol) 650 mg PO Q6H PRN PRN PRN Reason: Mild Pain (scale 0-3)/T>100.7 Al Hydroxide/Mg Hydroxide (Mylanta Ii) 30 ml PO Q6H PRN PRN PRN Reason: Gastric burning Albuterol Sulfate (Ventolin Aerosols) 2.5 mg INHALATION Q2H PRN PRN PRN Reason: SHORTNESS OF BREATH Albuterol/Ipratropium (Duoneb) 3 ml INHALATION Q4H.RT [facility] Last Admin: 10/27/17 15:30 Dose: Not Given Aspirin (Aspirin, Baby) 81 mg PO DAILY@0800 [facility] Last Admin: 10/27/17 10:02 Dose: 81 mg Dextrose (D50w Syringe) 0 gm IV X1 PRN; Protocol PRN Reason: Hypoglycemia Enoxaparin Sodium (Lovenox) 40 mg SC DAILY@1000 [facility] Last Admin: 10/27/17 10:06 Dose: Not Given Famotidine (Pepcid) 20 mg PO BID [facility] Last Admin: 10/27/17 10:02 Dose: 20 mg Glucagon () 1 mg IM .X1 PRN PRN Reason: Hypoglycemia Guaifenesin (Mucinex) 1,200 mg PO BID [facility] Last Admin: 10/27/17 10:02 Dose: 1,200 mg Haloperidol Lactate (Haldol) 1 - 2 mg IV Q4H PRN PRN PRN Reason: AGITATION Hydralazine HCl (Apresoline Iv) 10 mg IV Q4H PRN PRN PRN Reason: SBP > 160 Sodium Chloride () 1,000 mls @ 125 mls/hr IV .Q8H [facility] Last Admin: 10/27/17 15:47 Dose: 125 mls/hr Ceftriaxone Sodium (Rocephin) 1 gm in 50 mls @ 100 mls/hr IV Q24H [facility] Lisinopril (Zestril) 10 mg PO DAILY [facility] Last Admin: 10/27/17 10:02 Dose: 10 mg Loratadine (Claritin) 10 mg PO DAILY [facility] Last Admin: 10/27/17 10:02 Dose: 10 mg Magnesium Hydroxide (Milk Of Magnesia) 30 ml PO DAILY PRN PRN Reason: Constipation Ondansetron HCl (Zofran) 4 mg IV Q8H PRN PRN PRN Reason: NAUSEA Sodium Chloride () 5 - 30 ml IV UD PRN PRN Reason: SALINE FLUSH Medical Necessity - Tobacco Use Smoking Status: Current every day smoker Tobacco Use: Cigarettes Assessment/Plan Active and Suspected Problems Acute respiratory failure with hypoxia and hypercapnia (Acute) COPD exacerbation (Acute) 1. Acute hypoxic and hypercapnic respiratory failure * Patient's pulse ox was down to 77% on room air. Currently in the 90s on 3 L nasal cannula. 2. Acute exacerbation of COPD * No evidence of any pneumonia on chest x-ray, so I will discontinue the ceftriaxone. Add prednisone and continue with bronchodilators 3. Lower extremity erythema * No evidence of cellulitis at this time, therefore I will discontinue the antibiotics * Suspect related with lymphedematous changes. * Check an echocardiogram since the patient has heart strain. 4. DVT prophylaxis with Lovenox Code Visit Inpatient E&M: 12311 Subs Hosp L2
[2017-10-27] MEDS: predniSONE 20 MG Tablet 40 MG PO (17:05)
--- NOTE | 2017-10-27 22:31 | NURSING ---
The patient is refusing accucheck being done at this time and is getting agitated.
[2017-10-28 04:07] VITALS: BP 98/54; PULSE 73; RESP 16; TEMP 36.4; O2SAT 96
[2017-10-28 07:16] VITALS: PULSE 80; RESP 18; O2SAT 97
[2017-10-28] MEDS: Ipratropium/Albuterol Sulfate 3 ML AMPUL.NEB INHALATION (07:16)
[2017-10-28] MEDS: Lisinopril 10 MG Tablet PO (09:44)
[2017-10-28] MEDS: Aspirin 81 MG TAB.CHEW PO (09:44)
[2017-10-28] MEDS: Famotidine 20 MG Tablet PO (09:44)
[2017-10-28] MEDS: predniSONE 20 MG Tablet 40 MG PO (09:44)
[2017-10-28] MEDS: Loratadine 10 MG Tablet PO (09:44)
[2017-10-28 09:45] VITALS: BP 157/80; PULSE 75; RESP 18; TEMP 36.8; O2SAT 95
[2017-10-28] MEDS: guaiFENesin 1,200 MG Tablet 1200 MG PO (09:45)
--- NOTE | 2017-10-28 12:57 | CASEMGMT ---
Addendum entered by Elisabet Flynn 10/28/17 13:14: Patient will be going to [facility]. Elisabet HOLDEN Original Note: Renan from [facility] is at [facility] working on finding Psych placement for patient. Elisabet GAONA MSW
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
--- NOTE | 2017-10-28 13:53 | PCM.DC ---
- Discharge Diagnoses Current Active Problems: Current Active and Chronic Problems COPD (chronic obstructive pulmonary disease) (Chronic) Morbid obesity (Chronic) SHANAE (obstructive sleep apnea) (Chronic) Chronic respiratory failure with hypoxia (Chronic) Acute respiratory failure with hypoxia and hypercapnia (Acute) COPD exacerbation (Acute) Tobacco use (Chronic) HTN (hypertension) (Chronic) You will use the following diet at home:: No restrictions Your food should be the consistency of: Regular Discharge Activity: Return to Normal Activity Call your doctor if you observe: Fever of 101 or Higher, Shortness of breath Allergies/Adverse Reactions: Allergies PINK EYE MEDICATION Allergy (Uncoded 10/27/17 05:09) Unknown Medications to take at Discharge Aspirin [Aspirin, Baby] 81 mg PO DAILY@0800 10/27/17 Lisinopril [Prinivil] 10 mg PO DAILY 10/27/17 Loratadine 10 mg PO DAILY 10/27/17 Acetaminophen [Tylenol Tablet] 650 mg PO Q6H PRN PRN tablet 10/28/17 Albuterol Inhaler [Ventolin Hfa] 1 - 2 puff INHALATION Q4H PRN PRN #1 inhaler 10/28/17 Guaifenesin [Mucinex] 1,200 mg PO BID tablet 10/28/17 Nicotine [Nicoderm Cq] 21 mg TRANSDERM. DAILY patch 10/28/17 Prednisone 4 tab PO DAILY #12 tablet 10/28/17 The following prescriptions were given: Albuterol Inhaler [Ventolin Hfa] 1 - 2 puff INHALATION Q4H PRN PRN #1 inhaler PRN Reason: Shortness Of Breath Prednisone 4 tab PO DAILY #12 tablet Primary Care Physician: Care Physician,No Primary [Primary Care Provider] - Proposed Discharge Date: 10/28/17
--- NOTE | 2017-10-28 13:54 | PCM.DC.SUM ---
Discharge Date and Diagnosis - Problem List Patient Problems: Active and Suspected Problems Acute respiratory failure with hypoxia and hypercapnia (Acute) COPD exacerbation (Acute) Date of Admission: 10/27/17 Date of Discharge: 10/28/17 - Primary Discharge Diagnosis Active and Suspected Problems Acute respiratory failure with hypoxia and hypercapnia (Acute) COPD exacerbation (Acute) - Secondary Discharge Diagnosis Chronic Problems COPD (chronic obstructive pulmonary disease) (Chronic) Morbid obesity (Chronic) SHANAE (obstructive sleep apnea) (Chronic) Chronic respiratory failure with hypoxia (Chronic) Tobacco use (Chronic) HTN (hypertension) (Chronic) GERD (gastroesophageal reflux disease) (Chronic) Bipolar disorder (Chronic) Schizophrenia (Chronic) Hospital Course and Treatment Imaging Results: Clinical Impression(s) from Imaging Studies Brain CT 10/27/17 03:55 IMPRESSION: Normal unenhanced CT scan of the brain. Electronically Signed: Ramakrishna Manrique MD at 5:11 EDT , Service support , Chest X-Ray 10/27/17 04:38 IMPRESSION: Cardiomegaly. No evidence for acute cardiopulmonary pathology. Electronically Signed: Ramakrishna Manrique MD at 5:19 EDT , Service support , Consultations 10/28/17 08:12 Consult: Mental Health/Crisis Routine Reason for consult?: hx of schizophrenia Date Notified:: 10/28/17 Time notified:: 08:12 Operations: None Procedures: None Summary of Care Provided: The patient is a 37 year old Franck Neal after being found by police training getting to someone's house. Patient was noted to be confused. Patient was hypoxic 77% on room air. So the patient had COPD exacerbation and was started on steroids and bronchodilators. Patient's pulse ox is improved to 95%. Patient's confusion is likely the patient's baseline given his history of paranoid schizophrenia. Patient has been evaluated at [facility] and was seen by crisis and patient now accepted at [facility]. 1. Acute hypoxic and hypercapnic respiratory failure improved Patient's pulse ox was down to 77% on room air. Currently in the 95% on room air concern for pulm htn, pt declined echo. recommend follow up once psych issues stablized. no need for oxygen due to COPD +/- pulm htn. 2. Acute exacerbation of COPD No evidence of any pneumonia on chest x-ray, so I will discontinue the ceftriaxone. Add prednisone and continue with bronchodilators continue prednisone through 3. Lower extremity erythema No evidence of cellulitis at this time, therefore I will discontinue the antibiotics Suspect related with lymphedematous changes. concern for pulm htn 4. paranoid schizophrenia pt has been off his meds for several months seen by Crisis and patient to be transferred to [facility] for further mgmt pt not suicidal nor homicidal I do not feel pt was encephalopathic, but at his baseline on admission. Therefore, encephalopathy ruled out. [] Discharge Diet: No Restrictions Discharge Activity: Return to Normal Activity Call your doctor if you observe: Fever of 101 or Higher, Shortness of breath Home Medications: Medications to take at Discharge Aspirin [Aspirin, Baby] 81 mg PO DAILY@0800 10/27/17 Lisinopril [Prinivil] 10 mg PO DAILY 10/27/17 Loratadine 10 mg PO DAILY 10/27/17 Acetaminophen [Tylenol Tablet] 650 mg PO Q6H PRN PRN tablet 10/28/17 Albuterol Inhaler [Ventolin Hfa] 1 - 2 puff INHALATION Q4H PRN PRN #1 inhaler 10/28/17 Guaifenesin [Mucinex] 1,200 mg PO BID tablet 10/28/17 Nicotine [Nicoderm Cq] 21 mg TRANSDERM. DAILY patch 10/28/17 Prednisone 4 tab PO DAILY #12 tablet 10/28/17 Following Prescrptions Were Given to Patient: Albuterol Inhaler [Ventolin Hfa] 1 - 2 puff INHALATION Q4H PRN PRN #1 inhaler PRN Reason: Shortness Of Breath Prednisone 4 tab PO DAILY #12 tablet Primary Care Physician: Care Physician,No Primary [Primary Care Provider] - Disposition: Psych Hospital or Unit Minutes spent on discharge:: 36 Patient Condition:: Stable Medical Necessity - Tobacco Use Smoking Status: Current every day smoker Tobacco Use: Cigarettes Meaningful Use Info Meaningful Use Diagnoses (Choose all that apply): None applicable Code Visit Inpatient E&M: 16184 Disch Hosp
--- NOTE | 2017-10-28 14:57 | NURSING ---
1345- report called to Greer DALLAS at [facility]
[2017-10-28 14:58] VITALS: BP 147/78; PULSE 78; RESP 18; TEMP 36.8; O2SAT 93
== END 2017-10-28 17:44 | disposition short-term general hospital (02) | DRG 88 ==
LOC: ED 03:59 → PCU 06:51
PROVIDERS: Admitting Provider Family Medicine; Emergency Provider Emergency Medicine
DX: J44.1 Chronic obstructive pulmonary disease with (acute) exacerbation (principal); F20.0 Paranoid schizophrenia; J96.21 Acute and chronic respiratory failure with hypoxia; J96.22 Acute and chronic respiratory failure with hypercapnia; F17.210 Nicotine dependence, cigarettes, uncomplicated; K21.9 Gastro-esophageal reflux disease without esophagitis; F31.9 Bipolar disorder, unspecified; E66.01 Morbid (severe) obesity due to excess calories; G47.33 Obstructive sleep apnea (adult) (pediatric); I10 Essential (primary) hypertension; R73.9 Hyperglycemia, unspecified; L53.9 Erythematous condition, unspecified; Z68.43 Body mass index [BMI] 50.0-59.9, adult; Z99.81 Dependence on supplemental oxygen; Z91.14 Patient's other noncompliance with medication regimen
CPT/HCPCS: 36415; 36600; 70450; 71045; 80053; 80307; 80320; 81001; 82803; 82962; 83036; 83735; 83880; 84443; 84484; 85025; 93005; 94640; 97162; 97166; 97802; 99283; 99406; J7030; J7050; A4216; G0480; J0696

== ENCOUNTER 2017-12-14 23:20 | Inpatient (IN) | payer MEDICAID, SELFPAY ==
[2017-12-14 23:23] VITALS: BP 162/97; PULSE 108; RESP 24; TEMP 37.4; O2SAT 79; BMI 56.9
--- NOTE | 2017-12-14 23:27 | EKG12_ITS ---
Test Reason : Blood Pressure : / mmHG Vent. Rate : 089 BPM Atrial Rate : 089 BPM P-R Int : 158 ms QRS Dur : 092 ms QT Int : 372 ms P-R-T Axes : 066 032 046 degrees QTc Int : 452 ms Normal sinus rhythm Low voltage QRS (limb leads) Confirmed by ART HERNANDEZ, VENKATA ([id number]), online editor BENSON LYNCH ([id number]) on 12/24/2017 6:57:12 PM Referred By: Confirmed By:VENKATA CORDOVA MD
[2017-12-14 23:29] VITALS: RESP 17; O2SAT 95
[2017-12-14 23:51] LABS: Absolute Lymphocyte Count 1.91 X10^3/ul (0.83-4.51); Absolute Neutrophil Count 8.5 X10^3/uL (2.0-7.7); Basophil# 0.04 X10^3/uL; Basophil% 0.3 % (0-1); Eosinophil# 0.15 X10^3/uL; Eosinophils% 1.3 % (0-5); Hematocrit 47.7 % (40-54); Hemoglobin 14.9 g/dl (13.0-16.5); Lymphocyte # 1.91 X10^3/ul (4.0); Lymphocyte % 16.3 % (19-41); Mean Corp Hgb Conc 31.2 g/gl (32-36); Mean Corpuscular Hgb 29.2 pg (27.0-32.0); Mean Corpuscular Volume 93.5 fL (80-94); Mean Platelet Vol. 9.4 fl (6.2-12.0); Monocyte# 1.14 X10^3/uL; Monocyte% 9.7 % (0-10); Neutrophil # 8.46 X10^3/uL (2.7-7.7); Platelet Count 246 K/mm3 (150-450); RBC Distribution Width CV 14.1 % (11.6-14.6); RBC Distribution Width SD 46.5 fl (35.1-43.9); White Blood Count 11.8 K/mm3 (4.4-11.0)
[2017-12-14 23:52] LABS: POSITIVE COUNT NO; POSITIVE DIFFERENTIAL NO; POSITIVE MORPHOLOGY NO
[2017-12-14] MEDS: MethylPREDNISolone 125 MG/2 ML Vial IV (23:55)
[2017-12-14] MEDS: Albuterol 2.5 MG/3 ML VIAL.NEB. INHALATION ×2 (23:57)
[2017-12-14] MEDS: Ipratropium/Albuterol Sulfate 3 ML AMPUL.NEB INHALATION (23:57)
[2017-12-15] VITALS (15 sets, daily range): BP systolic 144–179; BP diastolic 83–104; PULSE 76–105; RESP 14–26; TEMP 36.9; O2SAT 90–96; BMI 56.5
--- NOTE | 2017-12-15 00:01 | RAD_ITS ---
STUDY: X-RAY CHEST REASON FOR EXAM: Male, 37 years old. Shortness of breath TECHNIQUE: A single frontal view of the chest was obtained. COMPARISON: October 27, 2017 FINDINGS: The lungs are underaerated. There are minimal increased markings in both lung bases. There is no demonstrated pleural abnormality. There is moderate enlargement of the cardiac silhouette. The mediastinum and hilar regions are unremarkable. The central vessels are prominent. Normal visualized aortic arch and descending thoracic aorta. The thoracic spine is unremarkable. The visualized ribs, clavicles, and shoulders are unremarkable. There is no demonstrated abnormality of the visualized upper abdomen. RAD/Chest 1 View (Portable) IMPRESSION: There is moderate enlargement of the cardiac silhouette with vascular congestion or mild edema. There is no obvious effusion. There is minimal bibasilar atelectasis. Electronically Signed: Divine Funez MD at 1:07 EDT Tel Direct: [phone], Service support ,
[2017-12-15 00:12] LABS: Anion Gap 4 (5-15); BUN 4 mg/dL (7-18); BUN/Creat Ratio 5.4 RATIO (10-20); Calcium,Total 8.1 mg/dL (8.5-10.1); Chloride 102 mmol/L (98-107); Creatinine, Serum 0.74 mg/dL (0.70-1.30); EST Glomerular Filtration Rate 125 mL/min (>60); Est Glom Filt Rate - Afr Amer 152 mL/min (>60); Estimated Creatinine Clearance 113.33 ml/min; Glucose 111 mg/dL (74-106); Potassium 3.8 mmol/L (3.5-5.1); Sodium Level 141 mmol/L (136-145)
[2017-12-15 00:18] LABS: BNP,B-Type NATRIURETIC PEPTIDE 41.4 pg/mL (0-100)
[2017-12-15 00:31] LABS: Allen Test POS; Base Excess 11 mmol/L (-2 to +2); Bicarbonate 37.9 mmol/L (22-26); EPAP 7; FI02 35; IPAP 12; PO2 44 mmHG (75-100); SITE R Radial; SO2 69 % (95-99); Total Carbon Dioxide 41 mmol/L; pCO2 85.5 mmHg (35-45); pH 7.26 (7.35-7.45)
[2017-12-15 00:48] LABS: Blood Gas Specimen Type VEN
--- NOTE | 2017-12-15 01:24 | ED.DCSUM_ITS ---
- ER Visit Summary Date of Service: 12/15/17 Chief Complaint: [] Shortness of breath History of Present Illness: The patient is a 37 M [] homeless, reports sudden onset of shortness of breath with previous history of respiratory failure resolving on BiPAP. History is limited secondary to the patient's waxing and waning mental status. Patient reports psychiatric history of PTSD. Reports he takes no other medications. Review of his records reveals that he has previously required BiPAP for respiratory support. Patient is very morbidly obese weighing over 150 kg. Physical Examination: [] Afebrile, vital signs stable with exception of a pulse ox in the mid 70s with a good waveform upon entry to the triage area. This improved to the high 80s low 90s with supplemental oxygen. Cardiovascular exam was regular rate and rhythm. Lungs were clear however these were globally diminished secondary to body habitus. Abdomen is obese soft, nontender. There is no significant lower extremity pitting edema. Test Results: [] CBC, BMP, troponin, BNP all within normal limits. EKG: Normal sinus rhythm, rate of 89 without ectopy or ischemic changes. Chest x-ray: Negative. Venous blood gas reveals a PCO2 of 85 and a pH of 7.26. Emergency Department Course and Treatment: [] Patient was immediately placed on BiPAP and received albuterol and Atrovent aerosols. Patient received intravenous Solu-Medrol. He improved however still required BiPAP. Case will be discussed with hospitalist for admission to the ICU. Treatment Plan: [] Admit, ICU. Disposition: [] Admit, stable. Impression: [] COPD exacerbation Respiratory failure Critical care time 35 minutes This note was generated with [employer] dictation software. It may contain incorrect words, spelling, and punctuation that were not noted in review of the chart prior to signing ED Disposition - Plan for ED Patient: Chief Complaint: Shortness of Breath Referrals: Care Physician,No Primary [Primary Care Provider] -
--- NOTE | 2017-12-15 01:25 | DT_ITS ---
This patient was seen during an EMR downtime December 15, 2017 - December 22, 2017. This patient may have a combination of paper and electronic documentation or all paper documentation. All documentation is viewable within the e-chart portion of [facility] for each patient visit.
--- NOTE | 2017-12-15 01:40 | PCM.HP.STD ---
Problem List (1) Altered mental status Status: Acute (2) CAP (community acquired pneumonia) Status: Acute (3) Acute respiratory failure Status: Acute (4) COPD exacerbation Status: Acute (5) Dry cough Status: Acute (6) Shortness of breath on exertion Status: Acute (7) Bipolar disorder Status: Chronic Qualifiers: Active/Remission status: remission status unspecified Qualified Code(s): F31.9 - Bipolar disorder, unspecified (8) COPD (chronic obstructive pulmonary disease) Status: Chronic Qualifiers: COPD type: unspecified COPD Qualified Code(s): J44.9 - Chronic obstructive pulmonary disease, unspecified (9) Chronic respiratory failure with hypoxia Status: Chronic (10) GERD (gastroesophageal reflux disease) Status: Chronic Qualifiers: Esophagitis presence: esophagitis presence not specified Qualified Code(s): K21.9 - Gastro-esophageal reflux disease without esophagitis History of Present Illness Date of Admission: 12/15/17 Chief Complaint: Acute respiratory failure 37 year old male w/ h/o COPD, SHANAE, HTN, bipolar, schizophrenia and chronic respiratory failure admitted for acute hypercapnic respiratory failure. No history obtained from patient secondary to delirium. Pt unable to provide any history. He was deep asleep and kept falling back asleep. History is taken from staff. He has been homeless for 2 weeks. He has not been taking his meds or on oxygen. He was placed on bipap when arrived in the ED. He was much more relaxed when placed on bipap. Past Medical History Past Medical History (Chronic Problems): Chronic Problems COPD (chronic obstructive pulmonary disease) (Chronic) Morbid obesity (Chronic) SHANAE (obstructive sleep apnea) (Chronic) Chronic respiratory failure with hypoxia (Chronic) Tobacco use (Chronic) HTN (hypertension) (Chronic) GERD (gastroesophageal reflux disease) (Chronic) Bipolar disorder (Chronic) Schizophrenia (Chronic) Allergies PINK EYE MEDICATION Allergy (Uncoded 12/14/17 23:29) Unknown Home Medications: Ambulatory Orders Medication Instructions Recorded Aspirin [Aspirin, Baby] 81 mg PO DAILY@0800 10/27/17 Lisinopril [Prinivil] 10 mg PO DAILY 10/27/17 Loratadine 10 mg PO DAILY 10/27/17 Acetaminophen [Tylenol Tablet] 650 mg PO Q6H PRN PRN tablet 10/28/17 Albuterol Inhaler [Ventolin Hfa] 1 - 2 puff INHALATION Q4H PRN PRN 10/28/17 #1 inhaler Guaifenesin [Mucinex] 1,200 mg PO BID tablet 10/28/17 Nicotine [Nicoderm Cq] 21 mg TRANSDERM. DAILY patch 10/28/17 Prednisone 4 tab PO DAILY #12 tablet 10/28/17 Surgical History: no surgical history Psychiatric History: Bipolar, Schizophrenia Smoking Status: Current every day smoker - *Family History Maternal History Items: No pertinent history Paternal History Items: No pertinent history Review of Systems Constitutional: Denies: Weight Change HEENT: Denies: Sinus Congestion, Sinus Drainage Cardiovascular: Denies: Chest Pain, Palpitations Respiratory: Reports: Shortness of Breath, Shortness of breath at rest, Sputum production. Denies: Cough Gastrointestinal: Denies: Abdominal Pain, Nausea, Vomiting Genitourinary: Denies: Dysuria Musculoskeletal: Denies: Joint Pain, Joint Tenderness Skin: Denies: Rash, Wounds Neurological: Denies: Numbness, Tingling, Focal weakness Psychiatric: Denies: Anxiety, Depression, Homicidal Ideations, Suicidal Ideations Hematologic/ Lymphatic: Denies: Easy Bruising, Easy Bleeding VTE Information - Inpt Only VTE Present on Admission: No VTE Mechan Device Prophylaxis: SCD's VTE Pharm Prophylaxis ordered?: Yes Patient Problems: Active and Suspected Problems Altered mental status (Acute) CAP (community acquired pneumonia) (Acute) Acute respiratory failure (Acute) - Physical Exam General: Lethargic, Non-Cooperative HEENT: Atraumatic, PERRLA, EOMI, Normocephalic Neck: Supple, No JVD, Negative Carotid Bruits Lungs: Diminished, Rales Cardiovascular: Regular rate, No murmurs Abdomen: Bowel Sounds Present, Soft, Non Tender Extremities: No edema, Capillary Refill Less than 3 Seconds Skin: No rashes, No breakdown Musculoskeletal: No Tenderness to Palpation of Joints or Extremities Neurological: - - Normal tone Psych/Mental Status: Normal Affect, Appropriate Vital Signs Temp Pulse Resp BP Pulse Ox 99.4 F H 105 H 16 144/91 H 95 12/14/17 23:23 12/15/17 01:32 12/15/17 01:32 12/15/17 01:32 12/15/17 01:32 Oxygen Flow Rate (L/min) 6 Oxygen Delivery Method Bi-pap Weight: 150.4 kg Body Mass Index (BMI) 56.9 Laboratory Tests Past 24 Hrs 12/14/17 12/14/17 12/14/17 23:40 23:40 23:40 WBC 11.8 H RBC 5.10 Hgb 14.9 Hct 47.7 MCV 93.5 MCH 29.2 MCHC 31.2 L RDW 14.1 RDW Differential 46.5 H Plt Count 246 MPV 9.4 Immature Gran % (Auto) 0.400 Neut % (Auto) 72.0 H Lymph % (Auto) 16.3 L Sharp % (Auto) 9.7 Eos % (Auto) 1.3 Baso % (Auto) 0.3 Absolute Neuts (auto) 8.5 H Absolute Lymphs (auto) 1.91 Total Counted Not Reportable Specimen Type Sample Site pH Bicarbonate Actual POC Total CO2 Base Excess O2 Saturation O2 % ABG pCO2 ABG pO2 Darnell Test O2 Delivery Device EPAP IPAP Blood Gas Notified Whom Sodium 141 Potassium 3.8 Chloride 102 Carbon Dioxide 35.0 H Anion Gap 4 L BUN 4 L Creatinine 0.74 Estim Creat Clear Calc 113.33 Est GFR (MDRD) Af Amer 152 Est GFR (MDRD) Non-Af 125 BUN/Creatinine Ratio 5.4 L Glucose 111 H Calcium 8.1 L Troponin I < 0.015 B-Natriuretic Peptide 41.4 12/15/17 00:21 WBC RBC Hgb Hct MCV MCH MCHC RDW RDW Differential Plt Count MPV Immature Gran % (Auto) Neut % (Auto) Lymph % (Auto) Sharp % (Auto) Eos % (Auto) Baso % (Auto) Absolute Neuts (auto) Absolute Lymphs (auto) Total Counted Specimen Type NURIA Sample Site R Radial pH 7.26 L Bicarbonate Actual 37.9 H POC Total CO2 41 Base Excess 11 H O2 Saturation 69 L O2 % 35 ABG pCO2 85.5 H* ABG pO2 44 L Darnell Test POS O2 Delivery Device Bi / C PAP EPAP 7 IPAP 12 Blood Gas Notified Whom ED Sodium Potassium Chloride Carbon Dioxide Anion Gap BUN Creatinine Estim Creat Clear Calc Est GFR (MDRD) Af Amer Est GFR (MDRD) Non-Af BUN/Creatinine Ratio Glucose Calcium Troponin I B-Natriuretic Peptide Assessment/Plan All Active Problems Acute respiratory failure with hypoxia and hypercapnia (Acute) COPD exacerbation (Acute) Altered mental status (Acute) CAP (community acquired pneumonia) (Acute) Acute respiratory failure (Acute) Dry cough (Acute) Shortness of breath on exertion (Acute) 37 year old male w/ h/o COPD, SHANAE, HTN, bipolar, schizophrenia and chronic respiratory failure admitted for acute hypercapnic respiratory failure. 1) Acute hypercapnic respiratory failure: Probably COPD exacerbation secondary to CAP / noncompliant. Will start steroid, bronchodilators and antibiotics. C/w bipap. Cultures pending. 2) Alter mental status: Probably secondary to hypercapnic respiratory failure. Will get ammonia. Will consider TSH, B12 / folate, RPR if no improvement. Drug screen pending. Cultures pending. 3) Morbid obesity: Supportive care. Monitor. 4) Prophylaxis: SCD / heparin
[2017-12-15] MEDS: Ceftriaxone 1 GM/50 ML BAG IV (02:20)
[2017-12-15] MEDS: 0.9% Normal Saline 1,000 ML 75 ML IV (02:21)
[2017-12-15] MEDS: 0.9% NaCl IVPB Med Flush (250 mL) 15 ML IV (02:37)
[2017-12-15] MEDS: 0.9% NaCl Peripheral Flush Adult/Peds IV (02:39)
--- NOTE | 2017-12-15 02:45 | NURSING ---
Pt unable to answer at this time, very lethargic on continuous BiPAP and unable to focus on the questions to answer.
[2017-12-18 10:33] LABS: Amphetamine Urine VISTA NEGATIVE (<1000 ng/mL); Barbiturate Urine VISTA NEGATIVE (< 200 ng/mL); Benzodiazepine Urine VISTA NEGATIVE (< 200 ng/mL); Cocaine Urine VISTA NEGATIVE (< 300 ng/mL); Ecstacy Urine VISTA NEGATIVE (< 500 ng/mL); Methadone Urine VISTA NEGATIVE (< 300 ng/mL); PCP Urine VISTA NEGATIVE (< 25 ng/mL); THC Urine VISTA NEGATIVE (< 50 ng/mL); Vista UDS pH Range 6
[2017-12-18 17:09] LABS: White Blood Count 11.6 K/mm3 (4.4-11.0)
[2017-12-18 17:10] LABS: Hematocrit 47.5 % (40-54); Hemoglobin 14.6 g/dl (13.0-16.5); Mean Corp Hgb Conc 30.7 g/gl (32-36); Mean Corpuscular Hgb 29.1 pg (27.0-32.0); Mean Corpuscular Volume 94.6 fL (80-94); Mean Platelet Vol. 9.9 fl (6.2-12.0); Platelet Count 237 K/mm3 (150-450); RBC Distribution Width CV 14.2 % (11.6-14.6); RBC Distribution Width SD 47.4 fl (35.1-43.9); Red Blood Count 5.02 M/mm3 (4.6-6.2); Scan Indicated on CBC? Y/N NO
[2017-12-19 13:06] LABS: Hematocrit 45.3 % (40-54); Mean Corp Hgb Conc 30.9 g/gl (32-36); Mean Corpuscular Hgb 28.7 pg (27.0-32.0); Mean Corpuscular Volume 92.8 fL (80-94); POSITIVE COUNT NO; POSITIVE DIFFERENTIAL NO; POSITIVE MORPHOLOGY NO; Platelet Count 253 K/mm3 (150-450); RBC Distribution Width CV 13.9 % (11.6-14.6); RBC Distribution Width SD 45.4 fl (35.1-43.9); Red Blood Count 4.88 M/mm3 (4.6-6.2); White Blood Count 14.2 K/mm3 (4.4-11.0)
[2017-12-19 13:07] LABS: Absolute Lymphocyte Count 0.93 X10^3/ul (0.83-4.51); Absolute Neutrophil Count 12.2 X10^3/uL (2.0-7.7); Lymphocyte # 0.93 X10^3/ul (4.0); Lymphocyte % 6.6 % (19-41); Monocyte# 0.99 X10^3/uL; Neutrophil # 12.21 X10^3/uL (2.7-7.7); Neutrophil % 86.2 % (47-70)
[2017-12-20 11:07] LABS: Hemoglobin A1c 6.4 % (4.2-6.3)
[2017-12-20 11:08] LABS: Anion Gap 6 (5-15); BUN 9 mg/dL (7-18); BUN/Creat Ratio 16.7 RATIO (10-20); Chloride 101 mmol/L (98-107); Creatinine, Serum 0.54 mg/dL (0.70-1.30); EST Glomerular Filtration Rate 181 mL/min (>60); Est Glom Filt Rate - Afr Amer 219 mL/min (>60); Estimated Creatinine Clearance 155.31 ml/min; Glucose 152 mg/dL (74-106); Magnesium 1.8 mg/dL (1.6-2.6); Phosphorus 4.1 mg/dL (2.5-4.9); Potassium 4.1 mmol/L (3.5-5.1); Sodium Level 143 mmol/L (136-145)
[2017-12-20 13:24] LABS: M R Staph aureus DNA By PCR Negative (Negative); Probe Check PASS; Specimen Processing Control PASS
[2017-12-22 02:06] LABS: Allen Test POS; Base Excess 12 mmol/L (-2 to +2); Bicarbonate 37.4 mmol/L (22-26); Blood Gas Specimen Type ART; EPAP 7; FI02 45; IPAP 12; PO2 82 mmHG (75-100); RR 14; SITE L Radial; SO2 95 % (95-99); Time Given 852; Total Carbon Dioxide 40 mmol/L; pCO2 69.8 mmHg (35-45); pH 7.34 (7.35-7.45)
[2017-12-22 02:06] LABS: Allen Test POS; Base Excess 11 mmol/L (-2 to +2); Bicarbonate 36.7 mmol/L (22-26); Blood Gas Specimen Type ART; O2 Delivery Device Nasal Can; PO2 55 mmHG (75-100); SITE L Radial; SO2 85 % (95-99); Time Given 745; Total Carbon Dioxide 39 mmol/L; pCO2 68.3 mmHg (35-45); pH 7.34 (7.35-7.45)
[2017-12-24 14:24] LABS: Anion Gap 6 (5-15); BUN 5 mg/dL (7-18); BUN/Creat Ratio 8.6 RATIO (10-20); Chloride 101 mmol/L (98-107); Creatinine, Serum 0.58 mg/dL (0.70-1.30); EST Glomerular Filtration Rate 167 mL/min (>60); Est Glom Filt Rate - Afr Amer 202 mL/min (>60); Glucose 174 mg/dL (74-106); Potassium 4.4 mmol/L (3.5-5.1); Sodium Level 143 mmol/L (136-145)
== END 2017-12-17 15:10 | disposition left against medical advice (07) | DRG 87 ==
LOC: ED 12-15 00:34 → ICU 12-15 01:40
PROVIDERS: Internal Medicine; Admitting Provider Internal Medicine; Emergency Provider Emergency Medicine; Visit Provider Internal Medicine
DX: J96.21 Acute and chronic respiratory failure with hypoxia (principal); J44.1 Chronic obstructive pulmonary disease with (acute) exacerbation; J96.22 Acute and chronic respiratory failure with hypercapnia; G93.41 Metabolic encephalopathy; I10 Essential (primary) hypertension; G47.33 Obstructive sleep apnea (adult) (pediatric); K21.9 Gastro-esophageal reflux disease without esophagitis; E66.01 Morbid (severe) obesity due to excess calories; Z68.43 Body mass index [BMI] 50.0-59.9, adult; F17.200 Nicotine dependence, unspecified, uncomplicated; Z59.0 Homelessness; Z79.82 Long term (current) use of aspirin; Z79.52 Long term (current) use of systemic steroids; Z91.19 Patient's noncompliance with other medical treatment and regimen; Z91.14 Patient's other noncompliance with medication regimen; Z99.81 Dependence on supplemental oxygen; Z79.899 Other long term (current) drug therapy
CPT/HCPCS: 36600; 71045; 80048; 80307; 82140; 82803; 83036; 83735; 83880; 84100; 84484; 85025; 85027; 87040; 87449; 87633; 87641; 87804; 93005; 94002; 94003; 94640; 97116; 97162; 97165; 97530; 97802; 99285; J7030; J7050; A4216

== ENCOUNTER 2017-12-31 19:51 | Inpatient (IN) | payer MEDICAID, SELFPAY ==
[2017-12-31] VITALS (12 sets, daily range): BP systolic 134–181; BP diastolic 64–127; PULSE 68–108; RESP 12–109; TEMP 36.8–37.3; O2SAT 72–98; BMI 58.4
--- NOTE | 2017-12-31 20:02 | RAD_ITS ---
STUDY: X-RAY CHEST REASON FOR EXAM: Male, 37 years old. Chest pain with shortness of breath TECHNIQUE: Single AP portable view of the chest. COMPARISON: Prior study December 15, 2017 FINDINGS: student union consultant leads are present. The lungs are clear and expanded. There is no demonstrated pleural abnormality. There is moderate cardiac enlargement. Normal mediastinum and eladio. Normal visualized pulmonary arteries. Normal visualized aortic arch and descending thoracic aorta. Normal visualized thoracic spine. Normal visualized ribs, clavicles, and shoulders. There is no demonstrated abnormality of the visualized soft tissue structures of the upper abdomen. RAD/Chest 1 View (Portable) IMPRESSION: Moderate cardiomegaly. No acute cardiopulmonary disease process is seen. Electronically Signed: Kiran Gorman MD at 20:26 EDT , Service support ,
--- NOTE | 2017-12-31 20:02 | ED.DCSUM_ITS ---
- ER Visit Summary Date of Service: 12/31/17 Chief Complaint: Confusion, shortness of breath and swelling History of Present Illness: The patient is a 37 M who presents because of confusion lows pulse ox. He apparently signed out AGAINST MEDICAL ADVICE earlier this month. Per old records he has history of COPD and obstructive sleep apnea. He is homeless and is unable to use his BiPAP machine. He currently smokes. His history is limited secondary back to be somnolent. Physical Examination: Blood pressure is 176/85 heart rate 107 respirations 30 with a pulse ox 70% on room air. Nursing staff placed him on a nonrebreather mask. Patient is obese with a BMI of 58.5. Head is atraumatic normocephalic. Pupils are equal round reactive. Extraocular muscles are intact. TMs are pearly white with landmarks noted. Nares patent with no drainage. Posterior pharynx without erythema or exudate. Uvula is midline. There is no dysphonia or dysphasia. Trachea is midline. There is no stridor with auscultation of the neck. Neck is very thick and difficult to palpate the thyroid. Lungs reveal wheezing and increased x-ray phase. Heart is regular. Abdomen soft nontender. He has pitting edema lower extremity. He moves all his extremities. Neuro exam is nonfocal. He is not alert. He does answer questions appropriately. Test Results: ABG reveals a pH of 7.22 PCO2 of 106 PaO2 of 240 base excess 16 bicarb 43.5 with her percent saturation on nonrebreather mask. Chest x-ray reveals mild cardiomegaly. X-rays improved from prior x-ray obtained on December. White count is 13.6 thousand 73 segs. Electro panels marked for CO2 of 39. Troponin is 0.033, which is normal. BNP is 112, which is normal. Lactate is 1.4. EKG revealed a sinus rhythm rate of 103 with motion artifact. NC interval is normal. QRS duration is normal. [place] is normal. Emergency Department Course and Treatment: Blood gas was obtained on the nonrebreather mask. He was converted to BiPAP. Workup was undertaken to evaluate for pneumonia versus COPD versus other cause. Because he is wheezing he was treated with DuoNeb and albuterol. He also received 125 mg of Solu- Medrol. Since there is no evidence of infection antibiotics were not administered. Treatment Plan: Hospitalist was paged for admission to ICU Disposition: Admit to ICU Impression: 1. Respiratory failure with hypercapnia and hypoxia 2. Exacerbation of COPD 3. Probable pulmonary hypertension with right-sided heart failure This note was generated with [employer] dictation software. It may contain incorrect words, spelling, and punctuation that were not noted in review of the chart prior to signing ED Disposition - Plan for ED Patient: Chief Complaint: Shortness of Breath Referrals: Care Physician,No Primary [Primary Care Provider] -
--- NOTE | 2017-12-31 20:02 | EKG12_ITS ---
Test Reason : SOB Blood Pressure : / mmHG Vent. Rate : 103 BPM Atrial Rate : 103 BPM P-R Int : 150 ms QRS Dur : 092 ms QT Int : 314 ms P-R-T Axes : 066 000 050 degrees QTc Int : 411 ms Sinus tachycardia Septal infarct , age undetermined Abnormal ECG Confirmed by MAYTE CLARK ([id number]), photography editor MARGARITA JIMENEZ ([id number] on 01/05/2018 10:37:28 AM Referred By: Linwood Pate Confirmed By:MAYTE CLARK
[2017-12-31] MEDS: Albuterol 2.5 MG/3 ML VIAL.NEB. INHALATION ×3 (20:35)
[2017-12-31] MEDS: Ipratropium/Albuterol Sulfate 3 ML AMPUL.NEB INHALATION (20:37)
[2017-12-31 20:42] LABS: Absolute Lymphocyte Count 2.23 X10^3/ul (0.83-4.51); Absolute Neutrophil Count 9.9 X10^3/uL (2.0-7.7); Basophil# 0.03 X10^3/uL; Basophil% 0.2 % (0-1); Eosinophil# 0.21 X10^3/uL; Eosinophils% 1.5 % (0-5); Hematocrit 48.2 % (40-54); Hemoglobin 14.4 g/dl (13.0-16.5); Lymphocyte # 2.23 X10^3/ul (4.0); Lymphocyte % 16.4 % (19-41); Mean Corp Hgb Conc 29.9 g/gl (32-36); Mean Corpuscular Hgb 28.6 pg (27.0-32.0); Mean Corpuscular Volume 95.6 fL (80-94); Mean Platelet Vol. 9.4 fl (6.2-12.0); Monocyte# 1.16 X10^3/uL; Monocyte% 8.5 % (0-10); Neutrophil # 9.88 X10^3/uL (2.7-7.7); Neutrophil % 72.9 % (47-70); Platelet Count 247 K/mm3 (150-450); RBC Distribution Width CV 14.9 % (11.6-14.6); RBC Distribution Width SD 51.6 fl (35.1-43.9); Red Blood Count 5.04 M/mm3 (4.6-6.2); White Blood Count 13.6 K/mm3 (4.4-11.0)
[2017-12-31 20:44] LABS: POSITIVE COUNT NO; POSITIVE DIFFERENTIAL NO; POSITIVE MORPHOLOGY NO
[2017-12-31 20:46] LABS: Anion Gap 3 (5-15); BUN 15 mg/dL (7-18); BUN/Creat Ratio 20.2 RATIO (10-20); Calcium,Total 8.5 mg/dL (8.5-10.1); Chloride 99 mmol/L (98-107); Creatinine, Serum 0.74 mg/dL (0.70-1.30); EST Glomerular Filtration Rate 125 mL/min (>60); Est Glom Filt Rate - Afr Amer 151 mL/min (>60); Estimated Creatinine Clearance 113.33 ml/min; Glucose 129 mg/dL (74-106); Potassium 3.8 mmol/L (3.5-5.1); Sodium Level 141 mmol/L (136-145)
[2017-12-31 21:00] LABS: Lactic Acid 1.4 mmol/L (0.4-2.0)
[2017-12-31 21:25] LABS: BNP,B-Type NATRIURETIC PEPTIDE 112.2 pg/mL (0-100)
[2017-12-31 22:10] LABS: Allen Test POS; Base Excess 16 mmol/L (-2 to +2); Bicarbonate 43.5 mmol/L (22-26); Blood Gas Specimen Type ART; O2 Delivery Device NRB Mask; PO2 240 mmHG (75-100); SITE R Radial; SO2 100 % (95-99); Time Given 2040; Total Carbon Dioxide 47 mmol/L; pCO2 106.5 mmHg (35-45); pH 7.22 (7.35-7.45)
[2017-12-31] MEDS: MethylPREDNISolone 125 MG/2 ML Vial IV (22:39)
[2017-12-31] MEDS: Etomidate 20 MG/10 ML Vial IV (22:56)
[2017-12-31] MEDS: Succinylcholine Chloride 200 MG/10 ML Vial IV (22:57)
--- NOTE | 2017-12-31 23:01 | PCM.HP.STD ---
Problem List (1) Acute on chronic respiratory failure with hypoxia and hypercapnia Status: Acute (2) Morbid obesity Status: Chronic (3) SHANAE (obstructive sleep apnea) Status: Chronic (4) Chronic respiratory failure with hypoxia Status: Chronic (5) Tobacco use Status: Chronic (6) HTN (hypertension) Status: Chronic Qualifiers: Hypertension type: essential hypertension Qualified Code(s): I10 - Essential (primary) hypertension (7) Altered mental status Status: Acute (8) GERD (gastroesophageal reflux disease) Status: Chronic Qualifiers: Esophagitis presence: esophagitis presence not specified Qualified Code(s): K21.9 - Gastro-esophageal reflux disease without esophagitis (9) Bipolar disorder Status: Chronic Qualifiers: Active/Remission status: remission status unspecified Qualified Code(s): F31.9 - Bipolar disorder, unspecified (10) Schizophrenia Status: Chronic Qualifiers: Schizophrenia type: unspecified Qualified Code(s): F20.9 - Schizophrenia, unspecified (11) COPD exacerbation Status: Acute History of Present Illness Date of Admission: 12/31/17 Chief Complaint: Confusion, shortness of breath and very somnolent The patient is a 37 year old M with multiple comorbidities including COPD, pulmonary hypertension with right-sided heart failure, recent admission in ICU in first week of December 2017 came to ER with shortness of breath, dyspnea on exertion. Patient was found confused by EMS. Pulse ox was 74% on room air and put on 15 liters nonrebreather. As per EMS vitals, blood pressure systolic was 150, heart rate 100/min. In ED, ABG shows 7.22/100 6/240 on 15 L of nonrebreather mask. In ED, initially he was put on BiPAP but gradually the patient became more somnolent, confused and difficult to wake up. Subsequently patient was intubated. During recent admission in December 2017 his admitting PCO2 was 85 and patient was put on BiPAP at that time. Chest x-ray shows moderate cardiomegaly otherwise no acute cardiopulmonary disease. Clinical Impression(s) from Imaging Studies Chest X-Ray 12/31/17 20:02 IMPRESSION: Moderate cardiomegaly. No acute cardiopulmonary disease process is seen. [] Past Medical History Past Medical History (Chronic Problems): Chronic Problems Morbid obesity (Chronic) SHANAE (obstructive sleep apnea) (Chronic) Chronic respiratory failure with hypoxia (Chronic) Tobacco use (Chronic) HTN (hypertension) (Chronic) GERD (gastroesophageal reflux disease) (Chronic) Bipolar disorder (Chronic) Schizophrenia (Chronic) Allergies PINK EYE MEDICATION Allergy (Uncoded 12/14/17 23:29) Unknown Home Medications: Ambulatory Orders Medication Instructions Recorded NK [NK] 12/31/17 Surgical History: no surgical history Psychiatric History: Bipolar, Schizophrenia Smoking Status: Current every day smoker - *Family History Maternal History Items: No pertinent history Paternal History Items: No pertinent history Review of Systems Unable to obtain accurate/complete ROS d/t: Patient confused, more even not responsive and subsequently intubated VTE Information - Inpt Only VTE Present on Admission: No VTE Mechan Device Prophylaxis: SCD's VTE Pharm Prophylaxis ordered?: Yes Patient Problems: Active and Suspected Problems Acute on chronic respiratory failure with hypoxia and hypercapnia (Acute) COPD exacerbation (Acute) - Physical Exam General: Lethargic, - - Somnolent and intubated HEENT: Atraumatic, PERRLA, EOMI, Normocephalic Oral: - - Intubated with 8.0 Tamazight ET tube and OG tube Neck: Supple, No JVD, Negative Carotid Bruits Lungs: Diminished - Very diminished air entry prior to intubation, Tachypneic Cardiovascular: Regular rate, Normal S1, Normal S2, No murmurs Abdomen: Bowel Sounds Present, Soft, Non Tender, Non-Distended Extremities: Capillary Refill Less than 3 Seconds, Edema Skin: Rash Present - Small follicular edematous rash hairy region of both legs, - - Candidal rash, mainly on left groin region Musculoskeletal: No Tenderness to Palpation of Joints or Extremities Neurological: Cranial nerves II-XII grossly intact Vital Signs Temp Pulse Resp BP Pulse Ox 98.2 F 84 14 179/95 H 97 12/31/17 21:42 12/31/17 22:40 12/31/17 22:40 12/31/17 22:40 12/31/17 22:40 Oxygen Flow Rate (L/min) 15 Oxygen Delivery Method Bi-pap Weight: 340 lb 9.827 oz Body Mass Index (BMI) 58.4 Laboratory Tests Past 24 Hrs 12/31/17 12/31/17 12/31/17 20:15 20:15 20:15 WBC 13.6 H RBC 5.04 Hgb 14.4 Hct 48.2 MCV 95.6 H MCH 28.6 MCHC 29.9 L RDW 14.9 H RDW Differential 51.6 H Plt Count 247 MPV 9.4 Immature Gran % (Auto) 0.500 Neut % (Auto) 72.9 H Lymph % (Auto) 16.4 L [place] % (Auto) 8.5 Eos % (Auto) 1.5 Baso % (Auto) 0.2 Absolute Neuts (auto) 9.9 H Absolute Lymphs (auto) 2.23 Total Counted Not Reportable Specimen Type Sample Site pH Bicarbonate Actual POC Total CO2 Base Excess O2 Saturation ABG pCO2 ABG pO2 Darnell Test O2 Delivery Device Liter Flow Blood Gas Notified Whom Blood Gas Notified Time Sodium 141 Potassium 3.8 Chloride 99 Carbon Dioxide 39.0 H Anion Gap 3 L BUN 15 Creatinine 0.74 Estim Creat Clear Calc 113.33 Est GFR (MDRD) Af Amer 151 Est GFR (MDRD) Non-Af 125 BUN/Creatinine Ratio 20.2 H Glucose 129 H Lactic Acid 1.4 Calcium 8.5 Troponin I 0.033 B-Natriuretic Peptide 12/31/17 12/31/17 20:15 20:39 WBC RBC Hgb Hct MCV MCH MCHC RDW RDW Differential Plt Count MPV Immature Gran % (Auto) Neut % (Auto) Lymph % (Auto) [place] % (Auto) Eos % (Auto) Baso % (Auto) Absolute Neuts (auto) Absolute Lymphs (auto) Total Counted Specimen Type ART Sample Site R Radial pH 7.22 L Bicarbonate Actual 43.5 H POC Total CO2 47 Base Excess 16 H O2 Saturation 100 H ABG pCO2 106.5 H* ABG pO2 240 H Darnell Test POS O2 Delivery Device NRB Mask Liter Flow 15.0 Blood Gas Notified Whom ED MD Blood Gas Notified Time 2039 Sodium Potassium Chloride Carbon Dioxide Anion Gap BUN Creatinine Estim Creat Clear Calc Est GFR (MDRD) Af Amer Est GFR (MDRD) Non-Af BUN/Creatinine Ratio Glucose Lactic Acid Calcium Troponin I B-Natriuretic Peptide 112.2 H Assessment/Plan All Active Problems Altered mental status (Acute) CAP (community acquired pneumonia) (Resolved) Acute on chronic respiratory failure with hypoxia and hypercapnia (Acute) COPD exacerbation (Acute) The patient is a 37 year old M with multiple comorbidities including COPD, pulmonary hypertension with right-sided heart failure, recent admission in ICU in first week of December 2017 came to ER with shortness of breath, dyspnea on exertion. Patient was found confused by EMS. Pulse ox was 74% on room air and put on 15 liters nonrebreather. As per EMS vitals, blood pressure systolic was 150, heart rate 100/min. In ED, ABG shows 7.22/100 6/240 on 15 L of nonrebreather mask. In ED, initially he was put on BiPAP but gradually the patient became more somnolent, confused and difficult to wake up. Subsequently patient was intubated. During recent admission in December 2017 his admitting PCO2 was 85 and patient was put on BiPAP at that time. Chest x-ray shows moderate cardiomegaly otherwise no acute cardiopulmonary disease. 1. Acute on chronic combined hypoxic and hypercarbic respiratory failure secondary to COPD exacerbation along with pulmonary hypertension and right-sided heart failure: The patient is being admitted in ICU for critical care. Fluid Power Mechanic consult for vent management. Repeat ABG after 1 hour. At present, continue IV propofol and might add fentanyl drip patient gets agitated or irritable 2. COPD exacerbation with CO2 retention: On bronchodilator, IV Solu-Medrol, and IV antibiotics. MRSA nasal screen. Patient has recent admission and was treated with IV ceftriaxone and Zithromax. Empirically, started on IV Zosyn and vancomycin AND IF blood culture X2, endotracheal sputum culture is negative can discontinue it. Patient has multiple follicular rash in bilateral lower extremity, suspicion of MRSA 3. History of pulmonary hypertension and right-sided heart failure: Patient had last echo in January 2015 which shows normal LV size and systolic function 65%. Study was technically difficult and tricuspid valve, pulmonary valve was not visualized. Normal RV size systolic function reported. Patient will need repeat echo to assess right sided failure. 4. Altered mental status, due to CO2 narcosis suggestive of metabolic encephalopathy: 5. Other comorbidities include bipolar disorder and schizophrenia, GERD: Home medication reconciliation done. DVT prophylaxis: Lovenox 40 mg subcu daily and bilateral SCDs. Total time spent, 50 minutes in assessment of the patient, absent imaging, diagnosis and review of previous medical record. Laboratory Results 12/31/17 20:15: WBC 13.6 H, RBC 5.04, Hgb 14.4, Hct 48.2, MCV 95.6 H, MCH 28.6, MCHC 29.9 L, RDW 14.9 H, RDW Differential 51.6 H, Plt Count 247, MPV 9.4, Immature Gran % (Auto) 0.500, Neut % (Auto) 72.9 H, Lymph % (Auto) 16.4 L, [place] % (Auto) 8.5, Eos % (Auto) 1.5, Baso % (Auto) 0.2, Absolute Neuts (auto) 9.9 H, Absolute Lymphs (auto) 2.23, Total Counted Not Reportable 12/31/17 20:15: Sodium 141, Potassium 3.8, Chloride 99, Carbon Dioxide 39.0 H, Anion Gap 3 L, BUN 15, Creatinine 0.74, Estim Creat Clear Calc 113.33, Est GFR (MDRD) Af Amer 151, Est GFR (MDRD) Non-Af 125, BUN/Creatinine Ratio 20.2 H, Glucose 129 H, Calcium 8.5, Troponin I 0.033 12/31/17 20:15: Lactic Acid 1.4 12/31/17 20:15: B-Natriuretic Peptide 112.2 H 12/31/17 20:39: Specimen Type ART, Sample Site R Radial, pH 7.22 L, Bicarbonate Actual 43.5 H, POC Total CO2 47, Base Excess 16 H, O2 Saturation 100 H, ABG pCO2 106.5 H*, ABG pO2 240 H, Darnell Test POS, O2 Delivery Device NRB Mask, Liter Flow 15.0, Blood Gas Notified Whom ED MD, Blood Gas Notified Time 2039 Clinical Impression(s) from Imaging Studies Chest X-Ray 12/31/17 20:02 IMPRESSION: Moderate cardiomegaly. No acute cardiopulmonary disease process is seen. Code Visit Inpatient E&M: 38951 Init Hosp L3 Procedures: 84406 Critial Care 1st Hr
--- NOTE | 2017-12-31 23:04 | ED.RN ---
PT WAS INTUBATED AT 2256 WITH ETOMIDATE 20MG IVP ADMINISTERED AND 2256 SUCCINYLCHOLINE 200MG IVP. 174/82 PULSE 100, PULSE OX 96%. [address] INTUBATION WITH 8FR BY DR. CRUZ, PULSE OX DESATURATED TO 80%, COLOR CHANGE NOTED, MANUAL VENTILATION BY CPS, PULSE OX 73% WITH ET TUBE AT TEETH LINE 25CM. PULSE OF AT 2300 94% AND PT PLACED ON VENTILATOR. OG 16FR PLACED BY VIC PEÑA RN.
[2017-12-31] MEDS: Propofol 200 MG/20 ML Vial 100 MG IV BOLUS (23:24)
[2017-12-31] MEDS: Propofol 10MG/Ml 1,000 MG/100 ML Bottle 4.635 MG CONT INF (23:25)
--- NOTE | 2017-12-31 23:45 | RAD_ITS ---
STUDY: X-RAY CHEST REASON FOR EXAM: Male, 37 years old. ET tube and NG tube placement TECHNIQUE: 1 view COMPARISON: December 31, 2017 at 8:10 PM FINDINGS: There is interval placement of an NG tube and ET tube with the ET tube 2.5 cm above the nitza. The heart is enlarged. There is no failure. There is no pneumonia. There are no pleural effusions. Normal visualized thoracic spine. Normal visualized ribs, clavicles, and shoulders. There is no demonstrated abnormality of the visualized soft tissue structures of the upper abdomen. RAD/Chest 1 View (Portable) IMPRESSION: Interval placement of an NG tube and ET tube with the ET tube at 2.5 cm above the nitza. Cardiomegaly. No acute findings in the lungs Electronically Signed: Jayant Lewis, at 0:28 EDT Tel , Service support ,
[2018-01-01] VITALS (41 sets, daily range): BP systolic 91–156; BP diastolic 52–100; PULSE 60–90; RESP 12–21; TEMP 37.2–37.6; O2SAT 88–95; BMI 58.1; BMI 58.5
--- NOTE | 2018-01-01 00:55 | NURSING ---
Pt arrives to ICU room with NIKKI Brandt and SEAMSTRESS FITTER. Pt is stable on ventilator no distress observed.
[2018-01-01 01:10] LABS: CPK Total, Creatine Kinase 42 U/L (39-308); Triglycerides 69 mg/dL
[2018-01-01 01:57] LABS: Bacteria 0 SEEN /hpf (None Seen); Mucous, Urine 0 SEEN /hpf (<or=2+); Squamous Epithelial Cells - UA 0 SEEN /hpf (0-5); White Blood Cells 0 SEEN /hpf (0-5)
[2018-01-01 02:02] LABS: Color, Urine Amber (Yellow); Glucose, Dipstick Normal (Normal); Ketone-Dipstick 5 mg/dl (Negative); Leukocyte Esterase-Dipstick 25 /ul (Negative); Nitrite-Dipstick Negative (Negative); Occult Blood-Urine 250 /ul (Negative); Protein-Dipstick 100 mg/dl (Negative); Specific Gravity, Urine 1.015 (1.002-1.030); Urine Clarity Cloudy (Clear); Urine Urobilinogen 4 mg/dl (Normal); Urine pH 6.5 (5.0 - 8.0)
[2018-01-01 02:06] LABS: Urine Bilirubin Dipstick 1 mg/dL (Negative)
[2018-01-01 02:07] LABS: Red Blood Cells-Urine > 100 SEEN /hpf (0-5)
[2018-01-01] MEDS: Propofol 10MG/Ml 1,000 MG/100 ML Bottle 4.635 MG CONT INF ×8 (02:08→23:58)
[2018-01-01] MEDS: Piperacil/Tazobactam 3.375 GM/50 ML ML IV (02:08)
[2018-01-01] MEDS: 0.9% NaCl IVPB Med Flush (250 mL) 15 ML IV (02:08)
[2018-01-01] MEDS: 0.9% Normal Saline 1,000 ML 125 ML IV (02:08)
[2018-01-01] MEDS: 0.9% NaCl Peripheral Flush Adult/Peds IV ×3 (02:10→14:37)
[2018-01-01 03:11] LABS: Base Excess 16 mmol/L (-2 to +2); Bicarbonate 39.2 mmol/L (22-26); Blood Gas Specimen Type ART; FI02 70; Mode A-C; O2 Delivery Device Vent; PEEP 5; PO2 51 mmHG (75-100); RR 20; SITE R Radial; SO2 87 % (95-99); Time Given 315; Total Carbon Dioxide 41 mmol/L; Vt 525; pCO2 51.5 mmHg (35-45); pH 7.49 (7.35-7.45)
[2018-01-01] MEDS: Enoxaparin 40 MG/0.4 ML Syringe SC (03:43)
[2018-01-01] MEDS: CHLORHEXIDINE GLUC 2% CLOTH 1 EACH TOWELETTE TOPICAL (03:44)
[2018-01-01 03:46] LABS: M R Staph aureus DNA By PCR Negative (Negative); Probe Check PASS; Specimen Processing Control PASS
[2018-01-01 04:15] LABS: Hematocrit 46.8 % (40-54); Hemoglobin 14.4 g/dl (13.0-16.5); Mean Corp Hgb Conc 30.8 g/gl (32-36); Mean Corpuscular Volume 94.4 fL (80-94); Mean Platelet Vol. 9.3 fl (6.2-12.0); Platelet Count 247 K/mm3 (150-450); RBC Distribution Width CV 15.1 % (11.6-14.6); RBC Distribution Width SD 50.6 fl (35.1-43.9); Red Blood Count 4.96 M/mm3 (4.6-6.2); White Blood Count 12.8 K/mm3 (4.4-11.0)
[2018-01-01 04:19] LABS: Scan Indicated on CBC? Y/N NO
[2018-01-01 04:25] LABS: Anion Gap 5 (5-15); BUN 14 mg/dL (7-18); BUN/Creat Ratio 22.1 RATIO (10-20); Calcium,Total 8.1 mg/dL (8.5-10.1); Chloride 99 mmol/L (98-107); Creatinine, Serum 0.63 mg/dL (0.70-1.30); EST Glomerular Filtration Rate 150 mL/min (>60); Est Glom Filt Rate - Afr Amer 182 mL/min (>60); Estimated Creatinine Clearance 133.12 ml/min; Glucose 178 mg/dL (74-106); Potassium 4.4 mmol/L (3.5-5.1); Sodium Level 142 mmol/L (136-145)
[2018-01-01 04:43] LABS: Erythrocyte Sedimentation Rate 53 mm/hr (0-15)
[2018-01-01] MEDS: Nystatin Powder 15gm Bottle 1 APPLIC TOPICAL ×4 (06:23→20:49)
[2018-01-01] MEDS: Insulin Lispro 100 UNIT/ML INSULN.PEN SQ (06:25)
--- NOTE | 2018-01-01 06:30 | PHA.PHARE_ITS ---
Consult Pharmacy has been consulted to manage selected antiobiotic: Vancomycin Type of Consult: New start Labs: Sodium 142 mmol/L (136-145) 01/01/18 04:05 Potassium 4.4 mmol/L (3.5-5.1) 01/01/18 04:05 Chloride 99 mmol/L (98-107) 01/01/18 04:05 Carbon Dioxide 38.0 mmol/L (21.0-32.0) H 01/01/18 04:05 Anion Gap 5 (5-15) 01/01/18 04:05 BUN 14 mg/dL (7-18) 01/01/18 04:05 Creatinine 0.63 mg/dL (0.70-1.30) L 01/01/18 04:05 Est GFR (MDRD) Af Amer 182 mL/min (>60) 01/01/18 04:05 Est GFR (MDRD) Non-Af 150 mL/min (>60) 01/01/18 04:05 BUN/Creatinine Ratio 22.1 RATIO (10-20) H 01/01/18 04:05 Glucose 178 mg/dL (74-106) H 01/01/18 04:05 Microbiology: Microbiology 01/01/18 02:48 Mucosa - Nose Influenza Types A,B Direct FA (SAI) - Final 01/01/18 01:50 Urine Catheter - Case Legionella Antigen - Final 01/01/18 01:50 Urine Catheter - Catheter Streptococcus pneumoniae Antigen ( M - Final Estimated Creatinine Clearance: 113.3 Goal Trough: 15-20 mcg/mL Pharmacy Plan for Drug Dosing: Pharmacy Service will continue to monitor and adjust dosing as required. Medications Vancomycin HCl 1,500 mg/ (Sodium Chloride) 530 mls @ 250 mls/hr IV Q8H EDWIN Discontinued Medications Vancomycin HCl 2,000 mg/ (Dextrose) 540 mls @ 250 mls/hr IV X1 ONE Stop: 01/01/18 03:48 Last Admin: 01/01/18 02:43 Dose: 250 mls/hr Follow-Up Labs: Trough Vancomycin Labs to be done on [date and time ordered]: 01/02 @ 0300
[2018-01-01 06:40] LABS: Bedside Glucose 171 mg/dL (70-110)
[2018-01-01] MEDS: Ipratropium/Albuterol Sulfate 3 ML AMPUL.NEB INHALATION ×5 (06:50→22:14)
--- NOTE | 2018-01-01 07:03 | PCM.CON.CC ---
Reason for Consult Date of Consultation: 01/01/18 Reason for Consultation: Acute on chronic combined respiratory failure History of Present Illness: The patient is a 37-year-old male, with a history as outlined below, who presented to the emergency department on December 31 with exertional dyspnea and hypoxia. Per EMS documentation, the patient was alert and oriented upon their arrival. He was reportedly saturating 74% on room air. The patient was placed on a nonrebreather and was able to ambulate to the EMS cot for transfer to the hospital. During his time spent in the emergency department, he became increasingly somnolent, which led to his elective intubation. On presentation to the emergency department, the patient was noted to be febrile, mildly tachycardic, tachypneic and hypoxic. Laboratory evaluation revealed a mildly elevated white blood cell count 14,000. Initial arterial blood gas on nonrebreather revealed a pH of 7.2, PCO2 of 106 and PO2 of 240. Chemistry profile revealed a chronically elevated serum bicarbonate to 39. Serum lactate was within normal limits. Troponin was negative. Urinalysis was negative for the presence of infection. Plain film chest x-ray revealed no acute cardiopulmonary process. The patient received IV antibiotics, aerosol treatments and steroids. He was subsequently transferred to the medical intensive care unit for ongoing management. The patient has a self-reported history of COPD of unknown severity, along with SHANAE (noncompliant with the use of nocturnal Pap therapy) and continuous tobacco dependence, who was recently admitted to the hospital under similar circumstances at the beginning of December, only to leave AGAINST MEDICAL ADVICE. Of note, the patient was previously being followed in the pulmonary medicine clinic for his underlying SHANAE and COPD. However, he has been lost to follow-up since April 2016. Past Medical History Past Medical History (Chronic Problems): Chronic Problems Morbid obesity (Chronic) SHANAE (obstructive sleep apnea) (Chronic) Chronic respiratory failure with hypoxia (Chronic) Tobacco use (Chronic) HTN (hypertension) (Chronic) GERD (gastroesophageal reflux disease) (Chronic) Bipolar disorder (Chronic) Schizophrenia (Chronic) Allergies PINK EYE MEDICATION Allergy (Uncoded 12/14/17 23:29) Unknown Home Medications: Ambulatory Orders Medication Instructions Recorded NK [NK] 12/31/17 Surgical History: no surgical history Psychiatric History: Bipolar, Schizophrenia Smoking Status: Current every day smoker - *Family History Maternal History Items: No pertinent history Paternal History Items: No pertinent history Review of Systems Unable to obtain accurate/complete ROS d/t: Due to current intubation and mechanical ventilation status. Patient Problems: Active and Suspected Problems Acute on chronic respiratory failure with hypoxia and hypercapnia (Acute) COPD exacerbation (Acute) Objective: The patient's most recent lab work, culture data and imaging studies have all been personally reviewed. Strep and urine Legionella antigens were both negative. Blood cultures are pending. Respiratory viral panel and sputum culture also pending. Surface echocardiogram from January 2015 revealed normal LV size and function with an ejection fraction of 65%. Pulmonary function testing last completed in May 2016 revealed evidence of an irreversible moderately severe large airways obstructive ventilatory defect with associated air trapping and reduction in diffusing capacity. Polysomnogram completed in June 2015 revealed evidence of severe obstructive sleep apnea for which bilevel therapy with a pressure setting of 17/11 cm of water was recommended with a 3 L/min supplemental oxygen bleed in. - Physical Exam General: - - Intubated, sedated and mechanically ventilated. HEENT: Atraumatic, PERRLA, Normocephalic Oral: No Gingival or Mucosal Lesions/ Ulcerations, - - Endotracheal and OG tubes in place Neck: Supple, No Nodes, Trachea Midline Lungs: No rhonchi, No wheeze, No rales, Diminished Cardiovascular: Regular rate, Regular Rhythm, Normal S1, Normal S2, No murmurs, No rub noted, No Gallop Abdomen: Bowel Sounds Present, Soft, Non Tender, Obese Extremities: No clubbing, No cyanosis, Edema Skin: - - Abscess present over right medial thigh extending posteriorly Musculoskeletal: No Muscle Wasting Lymphatic: No Cervical, Supraclavicular, or Inguinal Adenopathy Neurological: - - No focal neurological deficits. Currently sedated. Vital Signs Temp Pulse Resp BP Pulse Ox 99.3 F H 78 16 129/84 H 88 01/01/18 06:00 01/01/18 06:32 01/01/18 06:32 01/01/18 06:00 01/01/18 06:32 Oxygen Delivery Method Mechanical Ventilator Weight: 340 lb 2.772 oz Body Mass Index (BMI) 58.1 Intake and Output for Last 24 Hours 12/30/17 12/31/17 01/01/18 23:59 23:59 23:59 Intake Total 1440 / 1440 Output Total 450 / 450 Balance 990 / 990 Microbiology Past 72 Hours 01/01/18 02:48 Influenza Types A,B Direct FA (SAI) - Final Mucosa - Nose 01/01/18 01:50 Legionella Antigen - Final Urine Catheter - Case 01/01/18 01:50 Streptococcus pneumoniae Antigen (M - Final Urine Catheter - Catheter Laboratory Tests Past 24 Hrs 01/01/18 01/01/18 01/01/18 01:35 01:50 03:07 WBC RBC Hgb Hct MCV MCH MCHC RDW RDW Differential Plt Count MPV ESR Specimen Type ART Sample Site R Radial pH 7.49 H Bicarbonate Actual 39.2 H POC Total CO2 41 Base Excess 16 H O2 Saturation 87 L O2 % 70 ABG pCO2 51.5 H ABG pO2 51 L Darnell Test NA Respiration Rate 20 O2 Delivery Device Vent Minute Volume 11.00 Vent Mode A-C Tidal Volume 525 POC PEEP 5 Blood Gas Notified Whom [facility] Blood Gas Notified Time 315 Sodium Potassium Chloride Carbon Dioxide Anion Gap BUN Creatinine Estim Creat Clear Calc Est GFR (MDRD) Af Amer Est GFR (MDRD) Non-Af BUN/Creatinine Ratio Glucose Calcium Urine Color Anh Urine Clarity Cloudy Urine pH 6.5 Ur Specific [place] 1.015 Urine Protein 100 H Urine Glucose (UA) Normal Urine Ketones 5 H Urine Occult Blood 250 H Urine Nitrite Negative Urine Bilirubin 1 H Urine Urobilinogen 4 H Ur Leukocyte Esterase 25 H Urine RBC > 100 SEEN Urine WBC 0 SEEN Ur Squamous Epith Cells 0 SEEN Urine Bacteria 0 SEEN Urine Mucus 0 SEEN MRSA (PCR) Negative 01/01/18 01/01/18 01/01/18 04:05 04:05 04:05 WBC 12.8 H RBC 4.96 Hgb 14.4 Hct 46.8 MCV 94.4 H MCH 29.0 MCHC 30.8 L RDW 15.1 H RDW Differential 50.6 H Plt Count 247 MPV 9.3 ESR 53 H Specimen Type Sample Site pH Bicarbonate Actual POC Total CO2 Base Excess O2 Saturation O2 % ABG pCO2 ABG pO2 Darnell Test Respiration Rate O2 Delivery Device Minute Volume Vent Mode Tidal Volume POC PEEP Blood Gas Notified Whom Blood Gas Notified Time Sodium 142 Potassium 4.4 Chloride 99 Carbon Dioxide 38.0 H Anion Gap 5 BUN 14 Creatinine 0.63 L Estim Creat Clear Calc 133.12 Est GFR (MDRD) Af Amer 182 Est GFR (MDRD) Non-Af 150 BUN/Creatinine Ratio 22.1 H Glucose 178 H Calcium 8.1 L Urine Color Urine Clarity Urine pH Ur Specific [place] Urine Protein Urine Glucose (UA) Urine Ketones Urine Occult Blood Urine Nitrite Urine Bilirubin Urine Urobilinogen Ur Leukocyte Esterase Urine RBC Urine WBC Ur Squamous Epith Cells Urine Bacteria Urine Mucus MRSA (PCR) POC Glucose 01/01/18 06:19 POC Glucose 171 H Clinical Impression(s) from Imaging Studies Chest X-Ray 12/31/17 20:02 IMPRESSION: Moderate cardiomegaly. No acute cardiopulmonary disease process is seen. Electronically Signed: Kiran Gorman MD at 20:26 EDT , Service support , Chest X-Ray 12/31/17 23:45 IMPRESSION: Interval placement of an NG tube and ET tube with the ET tube at 2.5 cm above the nitza. Cardiomegaly. No acute findings in the lungs Electronically Signed: Jayant Lewis, at 0:28 EDT Tel , Service support , Assessment/Plan Active and Suspected Problems Acute on chronic respiratory failure with hypoxia and hypercapnia (Acute) COPD exacerbation (Acute) RECOMMENDATIONS: 1. Continue current supportive measures with mechanical ventilation. Continue current sedation regimen with plans to maintain a RASS of -1 to 1. 2. Continue scheduled bronchodilators and IV steroids 3. Continue empiric antibiotics, pending infectious workup. 4. Obtain sputum culture and respiratory viral panel 5. Continue Lovenox and Pepcid for ICU prophylaxis 6. Surgical evaluation of abscess 7. Start tube feeds today IMPRESSIONS: 1. Acute on chronic combined respiratory failure Possibly secondary to COPD with acute exacerbation versus suboptimally treated baseline COPD. However, 2 separate chest imaging studies have failed to demonstrate a significant cardiopulmonary process that would be contributing to the degree of hypoxia the patient is currently experiencing. Therefore, we will plan to obtain CTA chest to rule out for the presence of pulmonary embolism. We will plan to continue full mechanical ventilatory support in the meantime. Wean FiO2 and PEEP to maintain oxygen saturations at or above 90%. Obtain respiratory viral panel and sputum culture. Empiric antibiotics will be continued pending infectious workup. Continue propofol and fentanyl for sedation with a goal to maintain a RASS of -1 to 1. Continue scheduled bronchodilators and IV steroids. 2. Hypercarbic encephalopathy Anticipate improvement in the patient's mentation with correction of his underlying acid-base disturbance. Continue supportive measures as noted above. 3. Severe obstructive sleep apnea, noncompliant with the use of nocturnal PAP therapy/alveolar hypoventilation secondary to obesity Once the patient is able to be liberated from mechanical ventilation, bilevel therapy can be initiated with naps and nightly per the recommendations of his previous polysomnogram, 17/11 cm of water + 3 L/min supplemental oxygen bleed. 4. Ongoing tobacco dependence Smoking cessation is strongly advisable. The patient can be offered nicotine replacement therapy while admitted to the hospital. 5. Medical noncompliance/bipolar disorder/hypertension/GERD/inadequate material resources Complicates care, management, recovery and prognosis. TIME: 45 minutes of critical care time, independent of procedures, was spent addressing the patient's acute on chronic combined respiratory failure, hypercarbic encephalopathy, severe obstructive sleep apnea, ongoing tobacco dependence, lower extremity soft tissue abscess, review of all data and collaboration with the care team. ([id number]) Code Visit 9xxxx: [id number] Critical care first hour
--- NOTE | 2018-01-01 08:00 | NURSING ---
pt sedated, unable to comlete CAM assess.
--- NOTE | 2018-01-01 08:02 | PCM.PROGNOTE ---
Patient Problems: Active and Suspected Problems Acute on chronic respiratory failure with hypoxia and hypercapnia (Acute) COPD exacerbation (Acute) Subjective: Patient is a 37-year-old male with super morbid obesity, pulmonary hypertension, obstructive sleep apnea, chronic respiratory failure with hypoxia and hypercarbia, tobacco dependence, hypertension, GERD, bipolar disorder, schizophrenia, COPD who presented by squad to the emergency room at [facility] on 12/31/2017 with shortness of breath, excessive somnolence and altered mental status. Pulse ox at the time of arrival by EMS was 74% on room air and he was placed on a nonrebreather. He became more somnolent in the emergency room and was intubated. Vital signs at presentation to the emergency room were temperature 99.2, pulse rate 104, respiratory rate 19, oxygen saturation was 72% on room air. On a 6 L nasal cannula the O2 saturation was 84%. Labs showed an increased white blood cell count at 13.6 with 73% neutrophils. Hemoglobin and platelets were within normal limits. ABG obtained on a nonrebreather showed a pH of 7.22, PCO2 of 106 and a PO2 of 240. Serum bicarb was increased at 39. BUN was 15 with a creatinine of 0.74. Random glucose was elevated at 129 and lactic acid was within normal limits. Chest x-ray in the emergency room showed cardiomegaly with no infiltrates, pleural effusions or pulmonary vascular congestion. Cryptococcal and Legionella antigens in the urine were negative. Influenza swab was negative. Respiratory panel is pending. He was admitted to the intensive care unit on mechanical ventilation and consult was ordered with the carton packaging machine operator. Patient is well known to me from a recent admission for acute on chronic respiratory failure. He is homeless and mentally ill. He has oxygen during the day when he stays in the [facility] but at night he sleeps on the [facility] steps with no BiPAP and no oxygen. Left the hospital AMA his last admission because he refuses admission to an extended care facility or to the [employer] or other facilities where he will be able to use BiPAP and oxygen. All events of the past 24 hours have been reviewed. Antibiotic Day #2-cefepime and vancomycin Ventilator Day #2 TMAX: 99.4 Vital signs: Heart rate is within normal limits. Current blood pressure is 125/79, respiratory rate is 16 and he is 89% saturated on a 60% FiO2. Fluid balance: Fluid balance 990 since admission Urine output: 350 cc Weight: 340 pounds and 2.7 ounces All radiologic testing was reviewed: No infiltrates on chest x-ray to admission All labs were personally reviewed: Blood cell count is 12.8 and platelets and hemoglobin remained within normal limits. Sed rate is 53. ABG today on assist control with a tidal volume of 525 cc and 5 of PEEP showed a pH of 7.49, PCO2 of 51 and a PO2 of 51. Serum bicarb is still elevated at 38. Microbiology: Respiratory panel and blood culture are pending Telemetry: Normal sinus rhythm/sinus tachycardia with no significant ectopy ECHO: Echocardiogram done in 2015 showed an ejection fraction of 65%. It was a poor study due to patient's body habitus. EKG: Subjective: pt intubated and sedated. - Physical Exam General: - - Intubated and sedated HEENT: Atraumatic, PERRLA, Normocephalic Neck: No Nodes, No Nuchal Rigidity, Trachea Midline Lungs: No rhonchi, No wheeze, No rales, Diminished Cardiovascular: Regular rate, Regular Rhythm, Normal S1, Normal S2, No murmurs, No rub noted, No Gallop, - - Distant heart sounds secondary to body habitus Abdomen: Bowel Sounds Present, Soft, Non-Distended, Obese, - - No guarding with palpation Extremities: No cyanosis, Edema, Peripheral Pulses Normal, - - There is an abscess of the R posterior media thigh with multiple draining sinus tracts. Skin: - - stasis dermatitis, a few small red papules in the LE's Neurological: - - no facial asymmetry, moving all extremities Vital Signs Temp Pulse Resp BP Pulse Ox 99.3 F H 78 16 125/79 H 89 01/01/18 06:00 01/01/18 07:00 01/01/18 07:00 01/01/18 07:00 01/01/18 07:00 Oxygen Delivery Method Mechanical Ventilator Weight: 340 lb 2.772 oz Body Mass Index (BMI) 58.1 Intake and Output for Last 24 Hours 12/30/17 12/31/17 01/01/18 23:59 23:59 23:59 Intake Total 1440 / 1440 Output Total 450 / 450 Balance 990 / 990 Microbiology Past 72 Hours 01/01/18 02:48 Influenza Types A,B Direct FA (SAI) - Final Mucosa - Nose 01/01/18 01:50 Legionella Antigen - Final Urine Catheter - Case 01/01/18 01:50 Streptococcus pneumoniae Antigen (M - Final Urine Catheter - Catheter Laboratory Tests Past 24 Hrs 01/01/18 01/01/18 01/01/18 01:35 01:50 03:07 WBC RBC Hgb Hct MCV MCH MCHC RDW RDW Differential Plt Count MPV ESR Specimen Type ART Sample Site R Radial pH 7.49 H Bicarbonate Actual 39.2 H POC Total CO2 41 Base Excess 16 H O2 Saturation 87 L O2 % 70 ABG pCO2 51.5 H ABG pO2 51 L Darnell Test NA Respiration Rate 20 O2 Delivery Device Vent Minute Volume 11.00 Vent Mode A-C Tidal Volume 525 POC PEEP 5 Blood Gas Notified Whom [facility] Blood Gas Notified Time 315 Sodium Potassium Chloride Carbon Dioxide Anion Gap BUN Creatinine Estim Creat Clear Calc Est GFR (MDRD) Af Amer Est GFR (MDRD) Non-Af BUN/Creatinine Ratio Glucose Calcium Urine Color Anh Urine Clarity Cloudy Urine pH 6.5 Ur Specific [place] 1.015 Urine Protein 100 H Urine Glucose (UA) Normal Urine Ketones 5 H Urine Occult Blood 250 H Urine Nitrite Negative Urine Bilirubin 1 H Urine Urobilinogen 4 H Ur Leukocyte Esterase 25 H Urine RBC > 100 SEEN Urine WBC 0 SEEN Ur Squamous Epith Cells 0 SEEN Urine Bacteria 0 SEEN Urine Mucus 0 SEEN MRSA (PCR) Negative 01/01/18 01/01/18 01/01/18 04:05 04:05 04:05 WBC 12.8 H RBC 4.96 Hgb 14.4 Hct 46.8 MCV 94.4 H MCH 29.0 MCHC 30.8 L RDW 15.1 H RDW Differential 50.6 H Plt Count 247 MPV 9.3 ESR 53 H Specimen Type Sample Site pH Bicarbonate Actual POC Total CO2 Base Excess O2 Saturation O2 % ABG pCO2 ABG pO2 Darnell Test Respiration Rate O2 Delivery Device Minute Volume Vent Mode Tidal Volume POC PEEP Blood Gas Notified Whom Blood Gas Notified Time Sodium 142 Potassium 4.4 Chloride 99 Carbon Dioxide 38.0 H Anion Gap 5 BUN 14 Creatinine 0.63 L Estim Creat Clear Calc 133.12 Est GFR (MDRD) Af Amer 182 Est GFR (MDRD) Non-Af 150 BUN/Creatinine Ratio 22.1 H Glucose 178 H Calcium 8.1 L Urine Color Urine Clarity Urine pH Ur Specific [place] Urine Protein Urine Glucose (UA) Urine Ketones Urine Occult Blood Urine Nitrite Urine Bilirubin Urine Urobilinogen Ur Leukocyte Esterase Urine RBC Urine WBC Ur Squamous Epith Cells Urine Bacteria Urine Mucus MRSA (PCR) POC Glucose 01/01/18 06:19 POC Glucose 171 H Medical Necessity - Tobacco Use Smoking Status: Current every day smoker Assessment/Plan All Active Problems Altered mental status (Acute) CAP (community acquired pneumonia) (Resolved) Acute on chronic respiratory failure with hypoxia and hypercapnia (Acute) COPD exacerbation (Acute) Impressions 1. acute on chronic respiratory failure with hypoxia and hypercapnia 2. non-compliance with oxygen and BIPAP due to being homeless 3. Bipolar disorder/schizophrenia follows at the counselling center 4. Abscess RLE 5. COPD 6. SHANAE 7. pulmonary HTN 8. Tobacco dependence 9. Hypertension 10. GERD 11. Acute metabolic encephalopathy secondary to hypercarbia 12. Intertrigo Pt left the hospital AMA on recent admission 2 weeks ago. There were numerous conversations with Tevin Culver at the counselling center at the last admission with the SW. Pt needs to have a guardian appointed and this has not been done at this time. He is unable to care for himself and I suspect he also has MRDD in addition to BPD and schizophrenia. discussed with the SW. May need to get a court order and an emergency POA, prior to him signing out AMA yet again. Will consult surgery for I&D of the RLE abscess. CTA of the chest to rule out pulmonary embolism as contributing to the severe hypoxemia requiring high concentrations of oxygen even on the vent. Start tube feedings today unless Dr. Beal will take the patient to surgery to debride his abscess Lovenox for DVT prophylaxis Continue steroids and aerosolized bronchodilators Nystatin powder Continue vancomycin and cefepime Pepcid for GI prophylaxis Code Visit Inpatient E&M: [id number] [facility] Hosp L3
--- NOTE | 2018-01-01 08:05 | CT_ITS ---
STUDY: CTA CHEST REASON FOR EXAM: Male, 37 years old. Acute respiratory failure. Peritoneal abscess and swelling. COPD. RADIATION DOSAGE (If Supplied By Facility): CTDIvol = ( 23.36 ) mGy, DLP = ( 1872.33 ) mGycm TECHNIQUE: The examination was performed with the intravenous administration of 100 ml of Isovue 370 contrast material. Post-processing of the angiographic images was performed, with multiplanar reformation and 3D reconstruction. Individualized dose optimization techniques were used for this CT. COMPARISON: None. FINDINGS: An endotracheal tube is seen. An orogastric tube is seen within the esophagus and body of the stomach. Normal enhancement of the main pulmonary artery and right and left pulmonary arteries. Normal enhancement of the bilateral peripheral pulmonary arteries. There is no demonstrated pulmonary embolism. Normal thoracic aorta and visualized great vessels. There is no demonstrated aortic dissection. Normal heart and pericardium. Normal mediastinum. Normal hilar regions. Normal visualized trachea and bronchi. The lungs are well expanded. Focal infiltrate in the left upper lobe. Consolidation in the posterior medial segment of the left lower lobe and infiltrate in the superior segment of the left lower lobe. Patchy infiltrate in the superior segment of the right lower lobe as well as in the right lower lobe. Normal pleura. Normal chest wall structures. There are degenerative changes of thoracic spine. Normal visualized upper abdomen. CT/CTA Chest W/WO Contrast IMPRESSION: There is no evidence of pulmonary embolism. Patchy infiltrates in the left upper lobe as well as in both lower lobes worse on the left side. Electronically Signed: Silvano Ulloa MD at 11:19 EDT Tel [phone], Service support ,
--- NOTE | 2018-01-01 08:14 | PN_ITS ---
Patient Problems: Active and Suspected Problems Acute on chronic respiratory failure with hypoxia and hypercapnia (Acute) COPD exacerbation (Acute) Subjective: Patient is a 37-year-old male with super morbid obesity, pulmonary hypertension , obstructive sleep apnea, chronic respiratory failure with hypoxia and hypercarbia, tobacco dependence, hypertension, GERD, bipolar disorder, schizophrenia, COPD who presented by squad to the emergency room at [facility] on 12/31/2017 with shortness of breath, excessive somnolence and altered mental status. Pulse ox at the time of arrival by EMS was 74% on room air and he was placed on a nonrebreather. He became more somnolent in the emergency room and was intubated. Vital signs at presentation to the emergency room were temperature 99.2, pulse rate 104, respiratory rate 19, oxygen saturation was 72% on room air. On a 6 L nasal cannula the O2 saturation was 84 %. Labs showed an increased white blood cell count at 13.6 with 73% neutrophils. Hemoglobin and platelets were within normal limits. ABG obtained on a nonrebreather showed a pH of 7.22, PCO2 of 106 and a PO2 of 240. Serum bicarb was increased at 39. BUN was 15 with a creatinine of 0.74. Random glucose was elevated at 129 and lactic acid was within normal limits. Chest x- ray in the emergency room showed cardiomegaly with no infiltrates, pleural effusions or pulmonary vascular congestion. Cryptococcal and Legionella antigens in the urine were negative. Influenza swab was negative. Respiratory panel is pending. He was admitted to the intensive care unit on mechanical ventilation and consult was ordered with the children's entertainer. Patient is well known to me from a recent admission for acute on chronic respiratory failure. He is homeless and mentally ill. He has oxygen during the day when he stays in the [facility] but at night he sleeps on the [facility] steps with no BiPAP and no oxygen. Left the hospital AMA his last admission because he refuses admission to an extended care facility or to the [employer] or other facilities where he will be able to use BiPAP and oxygen. All events of the past 24 hours have been reviewed. Antibiotic Day #2-cefepime and vancomycin Ventilator Day #2 TMAX: 99.4 Vital signs: Heart rate is within normal limits. Current blood pressure is 125/ 79, respiratory rate is 16 and he is 89% saturated on a 60% FiO2. Fluid balance: Fluid balance 990 since admission Urine output: 350 cc Weight: 340 pounds and 2.7 ounces All radiologic testing was reviewed: No infiltrates on chest x-ray to admission All labs were personally reviewed: Blood cell count is 12.8 and platelets and hemoglobin remained within normal limits. Sed rate is 53. ABG today on assist control with a tidal volume of 525 cc and 5 of PEEP showed a pH of 7.49, PCO2 of 51 and a PO2 of 51. Serum bicarb is still elevated at 38. Microbiology: Respiratory panel and blood culture are pending Telemetry: Normal sinus rhythm/sinus tachycardia with no significant ectopy ECHO: Echocardiogram done in 2015 showed an ejection fraction of 65%. It was a poor study due to patient's body habitus. EKG: Subjective: pt intubated and sedated. - Physical Exam General: - - Intubated and sedated HEENT: Atraumatic, PERRLA, Normocephalic Neck: No Nodes, No Nuchal Rigidity, Trachea Midline Lungs: No rhonchi, No wheeze, No rales, Diminished Cardiovascular: Regular rate, Regular Rhythm, Normal S1, Normal S2, No murmurs, No rub noted, No Gallop, - - Distant heart sounds secondary to body habitus Abdomen: Bowel Sounds Present, Soft, Non-Distended, Obese, - - No guarding with palpation Extremities: No cyanosis, Edema, Peripheral Pulses Normal, - - There is an abscess of the R posterior media thigh with multiple draining sinus tracts. Skin: - - stasis dermatitis, a few small red papules in the LE's Neurological: - - no facial asymmetry, moving all extremities Vital Signs Temp Pulse Resp BP Pulse Ox 99.3 F H 78 16 125/79 H 89 01/01/18 06:00 01/01/18 07:00 01/01/18 07:00 01/01/18 07:00 01/01/18 07:00 Oxygen Delivery Method Mechanical Ventilator Weight: 340 lb 2.772 oz Body Mass Index (BMI) 58.1 Intake and Output for Last 24 Hours 12/30/17 12/31/17 01/01/18 23:59 23:59 23:59 Intake Total 1440 / 1440 Output Total 450 / 450 Balance 990 / 990 Microbiology Past 72 Hours 01/01/18 02:48 Influenza Types A,B Direct FA (SAI) - Final Mucosa - Nose 01/01/18 01:50 Legionella Antigen - Final Urine Catheter - Case 01/01/18 01:50 Streptococcus pneumoniae Antigen (M - Final Urine Catheter - Catheter Laboratory Tests Past 24 Hrs 01/01/18 01/01/18 01/01/18 01:35 01:50 03:07 WBC RBC Hgb Hct MCV MCH MCHC RDW RDW Differential Plt Count MPV ESR Specimen Type ART Sample Site R Radial pH 7.49 H Bicarbonate Actual 39.2 H POC Total CO2 41 Base Excess 16 H O2 Saturation 87 L O2 % 70 ABG pCO2 51.5 H ABG pO2 51 L Darnell Test NA Respiration Rate 20 O2 Delivery Device Vent Minute Volume 11.00 Vent Mode A-C Tidal Volume 525 POC PEEP 5 Blood Gas Notified Whom [facility] Blood Gas Notified Time 315 Sodium Potassium Chloride Carbon Dioxide Anion Gap BUN Creatinine Estim Creat Clear Calc Est GFR (MDRD) Af Amer Est GFR (MDRD) Non-Af BUN/Creatinine Ratio Glucose Calcium Urine Color Anh Urine Clarity Cloudy Urine pH 6.5 Ur Specific [place] 1.015 Urine Protein 100 H Urine Glucose (UA) Normal Urine Ketones 5 H Urine Occult Blood 250 H Urine Nitrite Negative Urine Bilirubin 1 H Urine Urobilinogen 4 H Ur Leukocyte Esterase 25 H Urine RBC > 100 SEEN Urine WBC 0 SEEN Ur Squamous Epith Cells 0 SEEN Urine Bacteria 0 SEEN Urine Mucus 0 SEEN MRSA (PCR) Negative 01/01/18 01/01/18 01/01/18 04:05 04:05 04:05 WBC 12.8 H RBC 4.96 Hgb 14.4 Hct 46.8 MCV 94.4 H MCH 29.0 MCHC 30.8 L RDW 15.1 H RDW Differential 50.6 H Plt Count 247 MPV 9.3 ESR 53 H Specimen Type Sample Site pH Bicarbonate Actual POC Total CO2 Base Excess O2 Saturation O2 % ABG pCO2 ABG pO2 Darnell Test Respiration Rate O2 Delivery Device Minute Volume Vent Mode Tidal Volume POC PEEP Blood Gas Notified Whom Blood Gas Notified Time Sodium 142 Potassium 4.4 Chloride 99 Carbon Dioxide 38.0 H Anion Gap 5 BUN 14 Creatinine 0.63 L Estim Creat Clear Calc 133.12 Est GFR (MDRD) Af Amer 182 Est GFR (MDRD) Non-Af 150 BUN/Creatinine Ratio 22.1 H Glucose 178 H Calcium 8.1 L Urine Color Urine Clarity Urine pH Ur Specific [place] Urine Protein Urine Glucose (UA) Urine Ketones Urine Occult Blood Urine Nitrite Urine Bilirubin Urine Urobilinogen Ur Leukocyte Esterase Urine RBC Urine WBC Ur Squamous Epith Cells Urine Bacteria Urine Mucus MRSA (PCR) POC Glucose 01/01/18 06:19 POC Glucose 171 H Medical Necessity - Tobacco Use Smoking Status: Current every day smoker Assessment/Plan All Active Problems Altered mental status (Acute) CAP (community acquired pneumonia) (Resolved) Acute on chronic respiratory failure with hypoxia and hypercapnia (Acute) COPD exacerbation (Acute) Impressions 1. acute on chronic respiratory failure with hypoxia and hypercapnia 2. non-compliance with oxygen and BIPAP due to being homeless 3. Bipolar disorder/schizophrenia follows at the counselling center 4. Abscess RLE 5. COPD 6. SHANAE 7. pulmonary HTN 8. Tobacco dependence 9. Hypertension 10. GERD 11. Acute metabolic encephalopathy secondary to hypercarbia 12. Intertrigo Pt left the hospital AMA on recent admission 2 weeks ago. There were numerous conversations with Tevin Culver at the counselling center at the last admission with the SW. Pt needs to have a guardian appointed and this has not been done at this time. He is unable to care for himself and I suspect he also has MRDD in addition to BPD and schizophrenia. discussed with the SW. May need to get a court order and an emergency POA, prior to him signing out AMA yet again. Will consult surgery for I&D of the RLE abscess. CTA of the chest to rule out pulmonary embolism as contributing to the severe hypoxemia requiring high concentrations of oxygen even on the vent. Start tube feedings today unless Dr. Beal will take the patient to surgery to debride his abscess Lovenox for DVT prophylaxis Continue steroids and aerosolized bronchodilators Nystatin powder Continue vancomycin and cefepime Pepcid for GI prophylaxis Code Visit Inpatient E&M: [id number] [facility] Hosp L3
--- NOTE | 2018-01-01 09:27 | CASEMGMT ---
Social Work Pt known to SW from previous admission. Pt currently on ventilator. Phone call to Tevin Culver, Optometrist President/Practice Owner at [facility] and message left requesting return call. SW will continue to follow for support and discharge planning. OLAF Pimentel
--- NOTE | 2018-01-01 10:20 | CT_ITS ---
STUDY: CT PELVIS WITH CONTRAST REASON FOR EXAM: Male, 37 years old. History of a perineal abscess and inner right thigh abscess. RADIATION DOSAGE (If Supplied By Facility): CTDIvol = ( 23.36 ) mGy, DLP = ( 1872.33 ) mGycm TECHNIQUE: Transaxial imaging of the pelvis was performed without oral contrast. 100mL ml of Isovue 370 contrast was administered intravenously. Individualized dose optimization techniques were used for this CT. COMPARISON: Comparison is made with prior study dated May 13, 2014. FINDINGS: A Case catheter is seen within the bladder. The bladder is empty. There is evidence of diffuse thickening of the bladder wall. Clinical correlation is recommended. No perineal abscess is seen. There is evidence of increased markings in the subcutaneous fat overlying the lateral aspect of the proximal right thigh with overlying skin thickening. Normal visualized small intestine. There are multiple colonic diverticula of the sigmoid colon consistent with chronic diverticulosis. There is no pelvic fluid. There is no pelvic lymphadenopathy or mass lesion. Normal visualized pelvic arteries. There is a right inguinal hernia containing fat. Normal osseous structures. CT/Pelvis WITH IV Contrast IMPRESSION: No perineal abscess is seen. Increased markings in the soft tissues overlying the lateral aspect of the right thigh. Electronically Signed: Silvano Ulloa MD at 12:30 EDT Tel [phone], Service support ,
[2018-01-01 11:00] LABS: M R Staph aureus DNA By PCR Negative (Negative); Probe Check PASS; Specimen Processing Control PASS; Staph aureus DNA By PCR NEGATIVE (Negative)
[2018-01-01] MEDS: Chlorhexidine 15 ML PO ×2 (11:18→21:39)
[2018-01-01] MEDS: Famotidine 20 MG Tablet GT ×2 (11:20→21:39)
--- NOTE | 2018-01-01 12:52 | PCM.CONS.GEN ---
Reason for Consult Date of Consultation: 01/01/18 Reason for Consultation: Draining abscess cluster right upper posterior medial thigh. REFERRING PHYSICIAN: Dr. Martínez. JAVA LEAD ARCHITECT: Dr. Beal. History of Present Illness: The patient is a 37 year old M with history of COPD and heart failure was admitted for confusion and shortness of breath. He was admitted to the ICU with respiratory issues and was intubated. It was noted he had an area of induration on his right upper posterior medial thigh with drainage. CT Pelvis was done which showed no perineal abscess and increased markings in the soft tissues overlying the lateral aspect of the right thigh. I was asked to evaluate this patient for surgical options for treatment. Past Medical History Past Medical History (Chronic Problems): Chronic Problems Morbid obesity (Chronic) SHANAE (obstructive sleep apnea) (Chronic) Chronic respiratory failure with hypoxia (Chronic) Tobacco use (Chronic) HTN (hypertension) (Chronic) GERD (gastroesophageal reflux disease) (Chronic) Bipolar disorder (Chronic) Schizophrenia (Chronic) Allergies PINK EYE MEDICATION Allergy (Uncoded 12/14/17 23:29) Unknown Current Medications Acetaminophen (Tylenol Liquid) 650 mg GT Q4H PRN Albuterol Sulfate (Ventolin Aerosols) 2.5 mg INHALATION Q2H PRN Albuterol/Ipratropium (Duoneb) 3 ml INHALATION Q4H.RT EDWIN Bisacodyl (Dulcolax) 10 mg RECTAL DAILY PRN Chlorhexidine Gluconate () 15 ml PO BID EDWIN Chlorhexidine Gluconate () 1 each TOPICAL DAILY EDWIN Enoxaparin Sodium (Lovenox) 40 mg SC DAILY@1000 EDWIN Famotidine (Pepcid) 20 mg GT BID EDWIN Propofol (Diprivan) 1,000 mg in 100 mls @ 4.635 mls/hr CONT INF .Q12H EDWIN; 5 MCG/KG/MIN Fentanyl () 100 mls @ 5 mls/hr IV .Q20H EDWIN Cefepime HCl 2 gm/ Sodium (Chloride) 100 mls @ 200 mls/hr IV Q12 EDWIN Insulin Human Lispro (Humalog Kwikpen (Bkc)) 0 unit SC Q6 EDWIN Magnesium Hydroxide (Milk Of Magnesia) 30 ml PO DAILY PRN Methylprednisolone (Solu-Medrol) 40 mg IV Q8 EDWIN Nystatin (Mycostatin Powder) 1 applic TOPICAL Q6H EDWIN Ondansetron HCl (Zofran) 4 mg IV Q6H PRN Polyethylene Glycol (Miralax) 17 gm GT BID EDWIN Promethazine HCl (Phenergan) 12.5 mg IV Q6H PRN Senna/Docusate Sodium (Senokot-S, Farida-Colace) 2 tablet GT BID EDWIN Vancomycin Home Medications: Ambulatory Orders Medication Instructions Recorded Albuterol Aerosols [Ventolin 2.5 mg INHALATION Q4H PRN PRN #1 01/09/18 Aerosols] vial.neb. Amox/Clavulanate Tablet [Augmentin 875 mg PO Q12H #10 tab 01/09/18 Tablet] Famotidine [Pepcid] 20 mg PO BID #30 tab 01/09/18 Furosemide [Lasix] 40 mg PO BID@1000,1800 #90 tab 01/09/18 Ipratropium/Albuterol Sulfate 3 ml INHALATION Q6HWA.RT #1 01/09/18 [Duoneb] ampul.neb Magnesium Hydroxide [Milk Of 30 ml PO DAILY PRN PRN #1 udc 01/09/18 Magnesia] Prednisone 10 mg PO DAILY #30 tab 01/09/18 Risperidone [Risperdal] 1 mg PO BID #90 tab 01/09/18 Valproic Acid [Depakene] 250 mg PO TID #90 cap 01/09/18 Surgical History: no surgical history Psychiatric History: Bipolar, Schizophrenia Lives: - - homeless. Smoking Status: Current every day smoker Alcohol: None Drugs: None - *Family History Maternal History Items: No pertinent history Paternal History Items: No pertinent history Review of Systems Unable to obtain accurate/complete ROS d/t: Patient intubated. - Physical Exam General: patient intubated HEENT: PERRLA, EOMI. Oral: - - Intubated. Neck: Supple. No cervical adenopathy. Lungs: Diminished. Patient intubated. Cardiovascular: Regular rate. Abdomen: Soft, Non-Distended. Extremities: Edema in lower extremities. Genitalia: Scrotum is soft without evidence of infection. Perineum is soft without evidence of infection. Skin: In the right upper posterior medial thigh is an area of induration with multiple cystic draining abscesses. Measures about 10 cm. Neurological: Cranial nerves II-XII grossly intact Vital Signs Temp Pulse Resp BP Pulse Ox 99.4 F H 90 17 139/92 H 93 01/01/18 08:00 01/01/18 10:54 01/01/18 10:54 01/01/18 08:00 01/01/18 10:54 Oxygen Delivery Method Mechanical Ventilator Weight: 340 lb 2.772 oz Body Mass Index (BMI) 58.1 Intake and Output for Last 24 Hours 12/30/17 12/31/17 01/01/18 23:59 23:59 23:59 Intake Total 1470 / 1470 Output Total 450 / 450 Balance 1020 / 1020 Microbiology Past 72 Hours 01/01/18 02:48 Respiratory Panel (PCR) - Final Mucosa - Nose 01/01/18 02:48 Influenza Types A,B Direct FA (SAI) - Final Mucosa - Nose 01/01/18 01:50 Legionella Antigen - Final Urine Catheter - Case 01/01/18 01:50 Streptococcus pneumoniae Antigen (M - Final Urine Catheter - Catheter Laboratory Tests Past 24 Hrs 01/01/18 01/01/18 01/01/18 01:35 01:50 03:07 WBC RBC Hgb Hct MCV MCH MCHC RDW RDW Differential Plt Count MPV ESR Specimen Type ART Sample Site R Radial pH 7.49 H Bicarbonate Actual 39.2 H POC Total CO2 41 Base Excess 16 H O2 Saturation 87 L O2 % 70 ABG pCO2 51.5 H ABG pO2 51 L Darnell Test NA Respiration Rate 20 O2 Delivery Device Vent Minute Volume 11.00 Vent Mode A-C Tidal Volume 525 POC PEEP 5 Blood Gas Notified Whom HOSP Blood Gas Notified Time 315 Sodium Potassium Chloride Carbon Dioxide Anion Gap BUN Creatinine Estim Creat Clear Calc Est GFR (MDRD) Af Amer Est GFR (MDRD) Non-Af BUN/Creatinine Ratio Glucose Calcium Urine Color Anh Urine Clarity Cloudy Urine pH 6.5 Ur Specific [place] 1.015 Urine Protein 100 H Urine Glucose (UA) Normal Urine Ketones 5 H Urine Occult Blood 250 H Urine Nitrite Negative Urine Bilirubin 1 H Urine Urobilinogen 4 H Ur Leukocyte Esterase 25 H Urine RBC > 100 SEEN Urine WBC 0 SEEN Ur Squamous Epith Cells 0 SEEN Urine Bacteria 0 SEEN Urine Mucus 0 SEEN S.aureus Protein A PCR MRSA (PCR) Negative 01/01/18 01/01/18 01/01/18 04:05 04:05 04:05 WBC 12.8 H RBC 4.96 Hgb 14.4 Hct 46.8 MCV 94.4 H MCH 29.0 MCHC 30.8 L RDW 15.1 H RDW Differential 50.6 H Plt Count 247 MPV 9.3 ESR 53 H Specimen Type Sample Site pH Bicarbonate Actual POC Total CO2 Base Excess O2 Saturation O2 % ABG pCO2 ABG pO2 Darnell Test Respiration Rate O2 Delivery Device Minute Volume Vent Mode Tidal Volume POC PEEP Blood Gas Notified Whom Blood Gas Notified Time Sodium 142 Potassium 4.4 Chloride 99 Carbon Dioxide 38.0 H Anion Gap 5 BUN 14 Creatinine 0.63 L Estim Creat Clear Calc 133.12 Est GFR (MDRD) Af Amer 182 Est GFR (MDRD) Non-Af 150 BUN/Creatinine Ratio 22.1 H Glucose 178 H Calcium 8.1 L Urine Color Urine Clarity Urine pH Ur Specific [place] Urine Protein Urine Glucose (UA) Urine Ketones Urine Occult Blood Urine Nitrite Urine Bilirubin Urine Urobilinogen Ur Leukocyte Esterase Urine RBC Urine WBC Ur Squamous Epith Cells Urine Bacteria Urine Mucus S.aureus Protein A PCR MRSA (PCR) 01/01/18 09:30 WBC RBC Hgb Hct MCV MCH MCHC RDW RDW Differential Plt Count MPV ESR Specimen Type Sample Site pH Bicarbonate Actual POC Total CO2 Base Excess O2 Saturation O2 % ABG pCO2 ABG pO2 Darnell Test Respiration Rate O2 Delivery Device Minute Volume Vent Mode Tidal Volume POC PEEP Blood Gas Notified Whom Blood Gas Notified Time Sodium Potassium Chloride Carbon Dioxide Anion Gap BUN Creatinine Estim Creat Clear Calc Est GFR (MDRD) Af Amer Est GFR (MDRD) Non-Af BUN/Creatinine Ratio Glucose Calcium Urine Color Urine Clarity Urine pH Ur Specific [place] Urine Protein Urine Glucose (UA) Urine Ketones Urine Occult Blood Urine Nitrite Urine Bilirubin Urine Urobilinogen Ur Leukocyte Esterase Urine RBC Urine WBC Ur Squamous Epith Cells Urine Bacteria Urine Mucus S.aureus Protein A PCR NEGATIVE MRSA (PCR) Negative POC Glucose 01/01/18 06:19 POC Glucose 171 H Assessment/Plan All Active Problems Abscess of right thigh (Acute) Altered mental status (Acute) Acute on chronic respiratory failure with hypoxia and hypercapnia (Acute) COPD exacerbation (Acute) Draining abscess cluster right upper posterior medial thigh. He is on Cefepime and Vancomycin. CT reviewed. This area of induration is clinically suspicious for a draining abscess. It needs operative incision and drainage and excisional debridement. Will send tissue to Pathology for analysis to rule out carcinoma. Will also send tissue to Microbiology for culture. A positive culture may necessitate antibiotic modification. Will leave the wound open and proceed with wound care with the VAC. Due to its location, a VAC seal may be difficult in which case can then proceed with daily Silver dressing changes. Anticipate increased metabolic demands from the wound and the infection. Will check a Prealbumin and encourage nutritional supplementation with protein to help the healing process. After discharge can followup at the [facility]. If there is a plateau in the healing process, can proceed with delayed closure with skin grafting. Code Visit Inpatient E&M: 43378 Init Hosp L2 - ICD-10 - L02.415
--- NOTE | 2018-01-01 15:13 | CASEMGMT ---
Social Work SW spoke with Dr. Martínez who is requesting emergency guardianship be pursued for pt. Statement of expert evaluation provided to physician who requests Dr. Hughes complete papers. Phone call to Dr. Hughes and he is agreeable to complete expert evaluation. Paperwork left at ICU nurses station for physician. Phone call placed to Tevin Culver [facility] and second voicemail left requesting return call to discuss pt needs. OLAF Pimentel
[2018-01-01 16:11] LABS: Bedside Glucose 121 mg/dL (70-110)
[2018-01-01 18:31] LABS: Bedside Glucose 122 mg/dL (70-110)
[2018-01-01] MEDS: Vital AF 1.2 Cal Liquid 1,000 ML 70 ML GT (19:07)
[2018-01-01] MEDS: Polyethylene Glycol 3350 17 GM PACKET GT (21:39)
[2018-01-01] MEDS: Senna/Docusate Sodium 1 Tablet 2 TABLET GT (21:39)
[2018-01-01 23:41] LABS: Bedside Glucose 125 mg/dL (70-110)
[2018-01-02] VITALS (35 sets, daily range): BP systolic 110–150; BP diastolic 61–96; PULSE 50–83; RESP 14–19; TEMP 37.1–39.2; O2SAT 86–96; BMI 58.3
--- NOTE | 2018-01-02 | ABS_PTH ---
PATIENT: RADHA NORIEGA LOC: [facility] U#:[id number] AGE/SX: 37/M ROOM: [facility] RE12/31/[address]: Dr. Oscar Whitmore MD : [id number] BED: 1 DIS: 01/09/2018 SPEC #: [id number] RECD: 01/02/18 14:43 STATUS: FREDY REQ #: [id number] DIONICIO: 01/02/18 00:[address]: Sandro Beal DEPT: SURGICAL PATHOLOGY RECD BY: Roverto Chavarria ENTERED: 01/02/18 14:43 SP TYPE: Abscess OTHR DR: DO Dr. Km Montejo, MD Dr. Gokul Simpson Dr., MD Dr. Ugo Gallo, MD No Primary Care Phys Tissues: Thigh, NOS Procedures: Special Stain Group I Surgery Specimen Level III AFB Stain (control) GMS Stain (control) Comments: @ Ordering doctor for SUIII edited from to @ by PINEDA at 01/05/18 09 @ Submitting doctor edited from to @ by PINEDA at 01/05/18 0947 HEADER OPERATION: Incision drainage abscess right upper posterior medial thigh PRE-OP DIAGNOSIS: Draining abscess cluster right upper posterior medial thigh abscess TISSUE SUBMITTED: Right upper posterior medial thigh abscess MICROSCOPIC DIAGNOSIS Right upper posterior medial thigh abscess: Skin with underlying tissue with acute and chronic inflammation and abscess formation. Special stains for acid fast bacilli and fungi are negative for organisms; matched controls are appropriate. SCOTT:ranjeet 01/05/18 MICROSCOPIC DESCRIPTION Slides are reviewed. GROSS DESCRIPTION Received in fixative is one container labeled with the patient's name and designated right posterior medial thigh abscess. The specimen consists of an ovoid piece of guzman-white to light brown skin measuring 11 x 9.5 cm and up to 3 cm in thickness. Sections do not reveal any mass lesion. Academic Intern sections are submitted in two cassettes. / SCOTT:ranjeet 01/02/18 TC:2 CPT: 87782, 63362 x2
[2018-01-02] MEDS: Ipratropium/Albuterol Sulfate 3 ML AMPUL.NEB INHALATION ×5 (02:49→22:57)
[2018-01-02] MEDS: Nystatin Powder 15gm Bottle 1 APPLIC TOPICAL ×3 (04:41→22:36)
[2018-01-02] MEDS: CHLORHEXIDINE GLUC 2% CLOTH 1 EACH TOWELETTE TOPICAL (04:42)
[2018-01-02] MEDS: 0.9% NaCl Peripheral Flush Adult/Peds IV ×2 (04:42→22:37)
[2018-01-02] MEDS: Propofol 10MG/Ml 1,000 MG/100 ML Bottle 4.635 MG CONT INF ×6 (04:42→22:26)
[2018-01-02 04:49] LABS: Absolute Lymphocyte Count 0.99 X10^3/ul (0.83-4.51); Absolute Neutrophil Count 8.9 X10^3/uL (2.0-7.7); Basophil# 0.01 X10^3/uL; Basophil% 0.1 % (0-1); Hematocrit 43.3 % (40-54); Hemoglobin 13.5 g/dl (13.0-16.5); Lymphocyte # 0.99 X10^3/ul (4.0); Lymphocyte % 9.3 % (19-41); Mean Corp Hgb Conc 31.2 g/gl (32-36); Mean Corpuscular Hgb 28.7 pg (27.0-32.0); Mean Corpuscular Volume 92.1 fL (80-94); Mean Platelet Vol. 9.4 fl (6.2-12.0); Monocyte# 0.78 X10^3/uL; Monocyte% 7.3 % (0-10); Neutrophil # 8.85 X10^3/uL (2.7-7.7); Neutrophil % 82.9 % (47-70); Platelet Count 242 K/mm3 (150-450); RBC Distribution Width CV 15.3 % (11.6-14.6); RBC Distribution Width SD 49.7 fl (35.1-43.9); White Blood Count 10.7 K/mm3 (4.4-11.0)
[2018-01-02 04:52] LABS: POSITIVE COUNT NO; POSITIVE DIFFERENTIAL NO; POSITIVE MORPHOLOGY NO
--- NOTE | 2018-01-02 05:00 | RAD_ITS ---
STUDY: X-RAY CHEST REASON FOR EXAM: Male, 37 years old. Intubated TECHNIQUE: 1 COMPARISON: January 01, 2008 FINDINGS: Cardiomegaly with no failure or pneumonia. A single area of platelike atelectatic changes in the left base. The right lung is clear. An ET tube and NG tube in place. ET tube base 3.7 cm above the nitza Normal visualized thoracic spine. Normal visualized ribs, clavicles, and shoulders. There is no demonstrated abnormality of the visualized soft tissue structures of the upper abdomen. RAD/Chest 1 View (Portable) IMPRESSION: Cardiomegaly. An area of a single platelike atelectatic change in the left costophrenic angle. An ET tube is in place with the tip 3.7 cm above the nitza Electronically Signed: Jayant Lewis, at 6:37 EDT Tel , Service support ,
[2018-01-02 05:03] LABS: Anion Gap 6 (5-15); BUN 16 mg/dL (7-18); BUN/Creat Ratio 24.9 RATIO (10-20); Calcium,Total 8.1 mg/dL (8.5-10.1); Chloride 101 mmol/L (98-107); Creatinine, Serum 0.64 mg/dL (0.70-1.30); EST Glomerular Filtration Rate 148 mL/min (>60); Est Glom Filt Rate - Afr Amer 179 mL/min (>60); Estimated Creatinine Clearance 131.04 ml/min; Glucose 134 mg/dL (74-106); Potassium 4.4 mmol/L (3.5-5.1); Sodium Level 143 mmol/L (136-145)
[2018-01-02 06:41] LABS: Bedside Glucose 131 mg/dL (70-110)
--- NOTE | 2018-01-02 07:51 | PN_ITS ---
Subjective: The patient was seen and examined at the bedside this morning. Events from the last 24 hours have been reviewed. The patient is currently afebrile, hemodynamically stable and maintaining appropriate oxygen saturations on an FiO2 of 60%. No overnight events were noted by the nursing staff. The patient is currently scheduled to undergo surgical intervention this morning around 10 AM. Objective: The patient's most recent lab work, culture data and imaging studies have all been personally reviewed. Strep and urine Legionella antigens were both negative. Blood cultures are pending. Respiratory viral panel was negative. Sputum and wound cultures are pending. Surface echocardiogram from January 2015 revealed normal LV size and function with an ejection fraction of 65%. Pulmonary function testing last completed in May 2016 revealed evidence of an irreversible moderately severe large airways obstructive ventilatory defect with associated air trapping and reduction in diffusing capacity. Polysomnogram completed in June 2015 revealed evidence of severe obstructive sleep apnea for which bilevel therapy with a pressure setting of 17/ 11 cm of water was recommended with a 3 L/min supplemental oxygen bleed in. CTA chest dated January 01 revealed no evidence for pulmonary embolism. However, it did demonstrate multifocal pneumonia bilaterally. General: - - Remains intubated, sedated and mechanically ventilated. HEENT: Atraumatic, PERRLA, Normocephalic Oral: No Gingival or Mucosal Lesions/ Ulcerations, - - Endotracheal and OG tubes remain in place. Neck: Supple, No Nodes, Trachea Midline, - - Large neck circumference with redundant soft tissue. Lungs: No rhonchi, No wheeze, No rales, Diminished Cardiovascular: Regular rate, Regular Rhythm, Normal S1, Normal S2, No murmurs, No rub noted, No Gallop Abdomen: Bowel Sounds Present, Soft, Non Tender, Obese Extremities: No clubbing, No cyanosis, Edema Skin: - - No significant change from previous Musculoskeletal: No Tenderness to Palpation of Joints or Extremities Lymphatic: No Cervical, Supraclavicular, or Inguinal Adenopathy Neurological: - - No focal deficits. Remains sedated with a RASS of -1. Will arouse to verbal stimulation and follow some simple commands. Vital Signs Temp Pulse Resp BP Pulse Ox 98.9 F 57 L 16 110/67 92 01/02/18 07:00 01/02/18 07:00 01/02/18 07:00 01/02/18 07:00 01/02/18 07:00 Oxygen Flow Rate (L/min) 16 Oxygen Delivery Method Mechanical Ventilator Weight: 341 lb 7.936 oz Body Mass Index (BMI) 58.3 Intake and Output for Last 24 Hours 12/31/17 01/01/18 01/02/18 23:59 23:59 23:59 Intake Total 3245 / 3245 185 / 185 Output Total 1550 / 1550 200 / 200 Balance 1695 / 1695 -15 / -15 Labs (Last 48 Hours) 01/01/18 01/01/18 01/01/18 01:35 01:50 03:07 WBC RBC Hgb Hct MCV MCH MCHC RDW RDW Differential Plt Count MPV Immature Gran % (Auto) Neut % (Auto) Lymph % (Auto) [place] % (Auto) Eos % (Auto) Baso % (Auto) Absolute Neuts (auto) Absolute Lymphs (auto) Total Counted ESR Specimen Type ART Sample Site R Radial pH 7.49 H Bicarbonate Actual 39.2 H POC Total CO2 41 Base Excess 16 H O2 Saturation 87 L O2 % 70 ABG pCO2 51.5 H ABG pO2 51 L Darnell Test NA Respiration Rate 20 O2 Delivery Device Vent Minute Volume 11.00 Vent Mode A-C Tidal Volume 525 POC PEEP 5 Blood Gas Notified Whom HOSP Blood Gas Notified Time 315 Sodium Potassium Chloride Carbon Dioxide Anion Gap BUN Creatinine Estim Creat Clear Calc Est GFR (MDRD) Af Amer Est GFR (MDRD) Non-Af BUN/Creatinine Ratio Glucose Calcium Urine Color Anh Urine Clarity Cloudy Urine pH 6.5 Ur Specific [place] 1.015 Urine Protein 100 H Urine Glucose (UA) Normal Urine Ketones 5 H Urine Occult Blood 250 H Urine Nitrite Negative Urine Bilirubin 1 H Urine Urobilinogen 4 H Ur Leukocyte Esterase 25 H Urine RBC > 100 SEEN Urine WBC 0 SEEN Ur Squamous Epith Cells 0 SEEN Urine Bacteria 0 SEEN Urine Mucus 0 SEEN S.aureus Protein A PCR MRSA (PCR) Negative POC Glucose 01/01/18 01/01/18 01/01/18 04:05 04:05 04:05 WBC 12.8 H RBC 4.96 Hgb 14.4 Hct 46.8 MCV 94.4 H MCH 29.0 MCHC 30.8 L RDW 15.1 H RDW Differential 50.6 H Plt Count 247 MPV 9.3 Immature Gran % (Auto) Neut % (Auto) Lymph % (Auto) [place] % (Auto) Eos % (Auto) Baso % (Auto) Absolute Neuts (auto) Absolute Lymphs (auto) Total Counted ESR 53 H Specimen Type Sample Site pH Bicarbonate Actual POC Total CO2 Base Excess O2 Saturation O2 % ABG pCO2 ABG pO2 Darnell Test Respiration Rate O2 Delivery Device Minute Volume Vent Mode Tidal Volume POC PEEP Blood Gas Notified Whom Blood Gas Notified Time Sodium 142 Potassium 4.4 Chloride 99 Carbon Dioxide 38.0 H Anion Gap 5 BUN 14 Creatinine 0.63 L Estim Creat Clear Calc 133.12 Est GFR (MDRD) Af Amer 182 Est GFR (MDRD) Non-Af 150 BUN/Creatinine Ratio 22.1 H Glucose 178 H Calcium 8.1 L Urine Color Urine Clarity Urine pH Ur Specific [place] Urine Protein Urine Glucose (UA) Urine Ketones Urine Occult Blood Urine Nitrite Urine Bilirubin Urine Urobilinogen Ur Leukocyte Esterase Urine RBC Urine WBC Ur Squamous Epith Cells Urine Bacteria Urine Mucus S.aureus Protein A PCR MRSA (PCR) POC Glucose 01/01/18 01/01/18 01/01/18 06:19 09:30 14:40 WBC RBC Hgb Hct MCV MCH MCHC RDW RDW Differential Plt Count MPV Immature Gran % (Auto) Neut % (Auto) Lymph % (Auto) [place] % (Auto) Eos % (Auto) Baso % (Auto) Absolute Neuts (auto) Absolute Lymphs (auto) Total Counted ESR Specimen Type Sample Site pH Bicarbonate Actual POC Total CO2 Base Excess O2 Saturation O2 % ABG pCO2 ABG pO2 Darnell Test Respiration Rate O2 Delivery Device Minute Volume Vent Mode Tidal Volume POC PEEP Blood Gas Notified Whom Blood Gas Notified Time Sodium Potassium Chloride Carbon Dioxide Anion Gap BUN Creatinine Estim Creat Clear Calc Est GFR (MDRD) Af Amer Est GFR (MDRD) Non-Af BUN/Creatinine Ratio Glucose Calcium Urine Color Urine Clarity Urine pH Ur Specific [place] Urine Protein Urine Glucose (UA) Urine Ketones Urine Occult Blood Urine Nitrite Urine Bilirubin Urine Urobilinogen Ur Leukocyte Esterase Urine RBC Urine WBC Ur Squamous Epith Cells Urine Bacteria Urine Mucus S.aureus Protein A PCR NEGATIVE MRSA (PCR) Negative POC Glucose 171 H 121 H 01/01/18 01/01/18 01/02/18 17:51 23:32 04:35 WBC RBC Hgb Hct MCV MCH MCHC RDW RDW Differential Plt Count MPV Immature Gran % (Auto) Neut % (Auto) Lymph % (Auto) [place] % (Auto) Eos % (Auto) Baso % (Auto) Absolute Neuts (auto) Absolute Lymphs (auto) Total Counted ESR Specimen Type Sample Site pH Bicarbonate Actual POC Total CO2 Base Excess O2 Saturation O2 % ABG pCO2 ABG pO2 Darnell Test Respiration Rate O2 Delivery Device Minute Volume Vent Mode Tidal Volume POC PEEP Blood Gas Notified Whom Blood Gas Notified Time Sodium 143 Potassium 4.4 Chloride 101 Carbon Dioxide 36.0 H Anion Gap 6 BUN 16 Creatinine 0.64 L Estim Creat Clear Calc 131.04 Est GFR (MDRD) Af Amer 179 Est GFR (MDRD) Non-Af 148 BUN/Creatinine Ratio 24.9 H Glucose 134 H Calcium 8.1 L Urine Color Urine Clarity Urine pH Ur Specific [place] Urine Protein Urine Glucose (UA) Urine Ketones Urine Occult Blood Urine Nitrite Urine Bilirubin Urine Urobilinogen Ur Leukocyte Esterase Urine RBC Urine WBC Ur Squamous Epith Cells Urine Bacteria Urine Mucus S.aureus Protein A PCR MRSA (PCR) POC Glucose 122 H 125 H 01/02/18 01/02/18 04:35 06:08 WBC 10.7 RBC 4.70 Hgb 13.5 Hct 43.3 MCV 92.1 MCH 28.7 MCHC 31.2 L RDW 15.3 H RDW Differential 49.7 H Plt Count 242 MPV 9.4 Immature Gran % (Auto) 0.400 Neut % (Auto) 82.9 H Lymph % (Auto) 9.3 L [place] % (Auto) 7.3 Eos % (Auto) 0.0 Baso % (Auto) 0.1 Absolute Neuts (auto) 8.9 H Absolute Lymphs (auto) 0.99 Total Counted Not Reportable ESR Specimen Type Sample Site pH Bicarbonate Actual POC Total CO2 Base Excess O2 Saturation O2 % ABG pCO2 ABG pO2 Darnell Test Respiration Rate O2 Delivery Device Minute Volume Vent Mode Tidal Volume POC PEEP Blood Gas Notified Whom Blood Gas Notified Time Sodium Potassium Chloride Carbon Dioxide Anion Gap BUN Creatinine Estim Creat Clear Calc Est GFR (MDRD) Af Amer Est GFR (MDRD) Non-Af BUN/Creatinine Ratio Glucose Calcium Urine Color Urine Clarity Urine pH Ur Specific [place] Urine Protein Urine Glucose (UA) Urine Ketones Urine Occult Blood Urine Nitrite Urine Bilirubin Urine Urobilinogen Ur Leukocyte Esterase Urine RBC Urine WBC Ur Squamous Epith Cells Urine Bacteria Urine Mucus S.aureus Protein A PCR MRSA (PCR) POC Glucose 131 H Microbiology 01/01/18 09:15 Sputum, Induced/Lukens Gram Stain - Final 01/01/18 Unknown Wound Abcess - Groin Gram Stain - Final 01/01/18 02:48 Mucosa - Nose Respiratory Panel (PCR) - Final 01/01/18 02:48 Mucosa - Nose Influenza Types A,B Direct FA (SAI) - Final 01/01/18 01:50 Urine Catheter - Case Legionella Antigen - Final 01/01/18 01:50 Urine Catheter - Catheter Streptococcus pneumoniae Antigen ( M - Final Clinical Impression(s) from Imaging Studies Chest X-Ray 12/31/17 20:02 IMPRESSION: Moderate cardiomegaly. No acute cardiopulmonary disease process is seen. Electronically Signed: Kiran Gorman MD at 20:26 EDT , Service support , Chest X-Ray 12/31/17 23:45 IMPRESSION: Interval placement of an NG tube and ET tube with the ET tube at 2.5 cm above the nitza. Cardiomegaly. No acute findings in the lungs Electronically Signed: Jayant Lewis, at 0:28 EDT Tel , Service support , Chest CTA 01/01/18 08:05 IMPRESSION: There is no evidence of pulmonary embolism. Patchy infiltrates in the left upper lobe as well as in both lower lobes worse on the left side. Electronically Signed: Silvano Ulloa MD at 11:19 EDT Tel [phone], Service support , Pelvis CT 01/01/18 10:20 IMPRESSION: No perineal abscess is seen. Increased markings in the soft tissues overlying the lateral aspect of the right thigh. Electronically Signed: Silvano Ulloa MD at 12:30 EDT Tel [phone], Service support , Chest X-Ray 01/02/18 05:00 IMPRESSION: Cardiomegaly. An area of a single platelike atelectatic change in the left costophrenic angle. An ET tube is in place with the tip 3.7 cm above the nitza Electronically Signed: Jayant Lewis, at 6:37 EDT Tel , Service support , Medical Necessity - Tobacco Use Smoking Status: Current every day smoker Assessment/Plan All Active Problems Altered mental status (Acute) CAP (community acquired pneumonia) (Resolved) Acute on chronic respiratory failure with hypoxia and hypercapnia (Acute) COPD exacerbation (Acute) RECOMMENDATIONS: 1. Continue current supportive measures with mechanical ventilation. Continue current sedation regimen with plans to maintain a RASS of -1 to 1. 2. Continue scheduled bronchodilators and IV steroids 3. Continue antibiotics, pending infectious workup. 4. Continue Lovenox and Pepcid for ICU prophylaxis 5. Surgical evaluation of abscess pending today 6. Continue tube feeds 7. Continue sliding scale insulin coverage and bowel regimen IMPRESSIONS: 1. Acute on chronic combined respiratory failure Likely secondary to COPD with acute exacerbation secondary to suboptimally treated COPD and HCAP. We will plan to continue current supportive measures with mechanical ventilation. We will plan to aggressively wean FiO2 and PEEP, once the patient has returned from surgery. Continue antibiotics accordingly. In addition, scheduled bronchodilators and IV steroids will be continued. Tube feeds can be resumed once the patient has returned from surgery. Plan for daily paired spontaneous awakening and breathing trials. Continue propofol and fentanyl for sedation with a goal to maintain a RASS of -1 to 1. Given the patient's history of medical noncompliance, poor disease insight and recurrent hospital admissions, attempts to obtain court appointed emergency guardianship is currently being undertaken. 2. Hypercarbic encephalopathy Improving with correction of his underlying acid-base disturbance. Continue supportive measures as noted above. 3. Severe obstructive sleep apnea, noncompliant with the use of nocturnal PAP therapy/alveolar hypoventilation secondary to obesity Once the patient is able to be liberated from mechanical ventilation, bilevel therapy can be initiated with naps and nightly per the recommendations of his previous polysomnogram, 17/11 cm of water + 3 L/min supplemental oxygen bleed. 4. Ongoing tobacco dependence Smoking cessation is strongly advisable. The patient can be offered nicotine replacement therapy while admitted to the hospital. 5. Medical noncompliance/bipolar disorder/hypertension/GERD/inadequate material resources Complicates care, management, recovery and prognosis. TIME: 60 minutes of critical care time, independent of procedures, was spent addressing the patient's acute on chronic combined respiratory failure, hypercarbic encephalopathy, severe obstructive sleep apnea, ongoing tobacco dependence, lower extremity soft tissue abscess, filling out emergency guardianship paperwork, review of all data and collaboration with the care team. ([id number]) Code Visit 9xxxx: [id number] Critical care first hour
--- NOTE | 2018-01-02 08:44 | PCM.PROGNOTE ---
Patient Problems: Active and Suspected Problems Acute on chronic respiratory failure with hypoxia and hypercapnia (Acute) COPD exacerbation (Acute) Subjective: All events of the past 24 hours have been reviewed. Antibiotic Day #3 Cefipime Ventilator Day #3 TMAX: 99.3 Vital signs: Stable, 92% on a 60% FiO2 Fluid balance: +1680 Urine output: 1125 on 01/01/2018 Weight: Weight was 340 pounds at 9.8 ounces at admission and today is 341 pounds and 7.9 ounces. All radiologic testing was reviewed: CTA of chest shows multifocal pneumonia but no pulmonary embolus. All labs were personally reviewed: White blood Cell count today is 10.7, down from 13.6 at admission. Hemoglobin and platelets are within normal limits. Serum bicarb is down to 36 today. BUN is 16 with a creatinine of 0.64. Blood sugars are very well controlled. Microbiology: all cultures are negative to date Telemetry: NSR with what appears to be a short run of irregular rhythm, but there is a lot of artifact ECHO: N/A Subjective: Dr. Hughes has completed the paperwork for the court to appt a guardian so that we may [facility] where he will be safe and able to be compliant with both oxygen and BIPAP. Pt will open his eyes to calling his name but is not following commands He is scheduled for I&D of the R thigh abscess today at 10AM Objective: - Physical Exam General: - - Intubated and sedated, opens eyes when I call his name, on rounds he was trying to talk. His friend tells us that he has left knee pain that he complains of often. HEENT: Atraumatic, PERRLA, Normocephalic Neck: No Nodes, No Nuchal Rigidity, Trachea Midline Lungs: No rhonchi, No wheeze, No rales, Diminished Cardiovascular: Regular rate, Regular Rhythm, Normal S1, Normal S2, No murmurs, No rub noted, No Gallop, - - Distant heart sounds secondary to body habitus Abdomen: Bowel Sounds Present but diminished, Soft, mildly distended., Obese, - - No guarding with palpation Extremities: No cyanosis, Edema, Peripheral Pulses Normal, - - There is an abscess of the R posterior media thigh with multiple draining sinus tracts. No swelling or erythema of the left knee. Skin: - - stasis dermatitis, a few small red papules in the LE's Neurological: - - no facial asymmetry, moving all extremities - Physical Exam Vital Signs Temp Pulse Resp BP Pulse Ox 98.9 F 57 L 16 110/67 92 01/02/18 07:00 01/02/18 07:00 01/02/18 07:00 01/02/18 07:00 01/02/18 07:00 Oxygen Flow Rate (L/min) 16 Oxygen Delivery Method Mechanical Ventilator Weight: 341 lb 7.936 oz Body Mass Index (BMI) 58.3 Intake and Output for Last 24 Hours 12/31/17 01/01/18 01/02/18 23:59 23:59 23:59 Intake Total 3245 / 3245 185 / 185 Output Total 1550 / 1550 200 / 200 Balance 1695 / 1695 -15 / -15 Microbiology Past 72 Hours 01/01/18 09:15 Gram Stain - Final Sputum, Induced/Lukens 01/01/18 Unknown Gram Stain - Final Wound Abcess - Groin 01/01/18 02:48 Respiratory Panel (PCR) - Final Mucosa - Nose 01/01/18 02:48 Influenza Types A,B Direct FA (SAI) - Final Mucosa - Nose 01/01/18 01:50 Legionella Antigen - Final Urine Catheter - Case 01/01/18 01:50 Streptococcus pneumoniae Antigen (M - Final Urine Catheter - Catheter Laboratory Tests Past 24 Hrs 01/01/18 01/02/18 01/02/18 09:30 04:35 04:35 WBC 10.7 RBC 4.70 Hgb 13.5 Hct 43.3 MCV 92.1 MCH 28.7 MCHC 31.2 L RDW 15.3 H RDW Differential 49.7 H Plt Count 242 MPV 9.4 Immature Gran % (Auto) 0.400 Neut % (Auto) 82.9 H Lymph % (Auto) 9.3 L [place] % (Auto) 7.3 Eos % (Auto) 0.0 Baso % (Auto) 0.1 Absolute Neuts (auto) 8.9 H Absolute Lymphs (auto) 0.99 Total Counted Not Reportable Sodium 143 Potassium 4.4 Chloride 101 Carbon Dioxide 36.0 H Anion Gap 6 BUN 16 Creatinine 0.64 L Estim Creat Clear Calc 131.04 Est GFR (MDRD) Af Amer 179 Est GFR (MDRD) Non-Af 148 BUN/Creatinine Ratio 24.9 H Glucose 134 H Calcium 8.1 L S.aureus Protein A PCR NEGATIVE MRSA (PCR) Negative POC Glucose 01/02/18 01/01/18 01/01/18 06:08 23:32 17:51 POC Glucose 131 H 125 H 122 H 01/01/18 14:40 POC Glucose 121 H Medical Necessity - Tobacco Use Smoking Status: Current every day smoker Assessment/Plan All Active Problems Altered mental status (Acute) CAP (community acquired pneumonia) (Resolved) Acute on chronic respiratory failure with hypoxia and hypercapnia (Acute) COPD exacerbation (Acute) Impressions 1. acute on chronic respiratory failure with hypoxia and hypercapnia 2. non-compliance with oxygen and BIPAP due to being homeless 3. Bipolar disorder/schizophrenia follows at the [facility] 4. Abscess RLE - for surgery with Dr. Beal on 01/02 5. COPD 6. SHANAE 7. pulmonary HTN 8. Tobacco dependence 9. Hypertension 10. GERD 11. Acute metabolic encephalopathy secondary to hypercarbia 12. Intertrigo 13. super obesity 14. multifocal pneumonia - likely due to aspiration...culture of sputum is negative Continue cefepime I&D of right thigh abscess today. Start a nonsteroidal anti-inflammatory agent Per OG tube while intubated Continue DVT prophylaxis and GI prophylaxis Resume tube feed following surgery his pharmacy has been filling Depakote for him......he has been on injections of Invega. Will start Depakene down the OG and also Risperdal BID while intubated and convert to oral following extubation. will likely be intubated a few more days because he is still requiring a 60% FIO2 to keep him adequately saturated. Code Visit Inpatient E&M: [id number] [facility] L[facility]
--- NOTE | 2018-01-02 09:26 | CASEMGMT ---
Addendum entered by Chayo Alfaro 01/02/18 12:34: SW received an email back from Chica at [facility] stating they cannot take on another guardianship case at this time. SW called [employer] and left a message requesting a return call regarding a guardianship case. SW asked her to call JUNE Flynn as this SW will be leaving shortly for the day. ELIZABETH Rust, PAPER CUP HANDLE MACHINE OPERATOR Original Note: Addendum entered by Chayo Alfaro 01/02/18 10:34: SW received call back from Tevin Culver, pt's complex case manager. Tevin states he has not worked w/pt in a couple of months, has been his temporary complex case manager since the pt fired his last complex case manager. Pt does have a new complex case manager who will be assigned, but he will be on vacation next week so for now Tevin is keeping pt on his case load. Tevin states they did attempt guardianship last year, and Judge Holguin turned it down. Tevin is in support of attempting guardianship again, due to the deterioration in the pt's condition. They have not tried guardianship again since it was turned down last year. JUNE will continue to follow, waiting for call back from Danitza Salter at [employer]. ELIZABETH Rust, PAPER CUP HANDLE MACHINE OPERATOR Original Note: JUNE participated in ICU rounds this morning, the executive legal secretary from [facility], Gisselle Sanchez, is here seeing pt([phone], cell: [phone]). Pt's Tube Bender Robinson Sanchez is pt's payee, but he is in [place] on sabba at present and will not be back until Friday. Dr. Hughes completed the Statement of Expert Evaluation. JUNE called automobile washer steam Danitza Salter with [employer], spoke w/executive legal secretary. She states to fax over the information for the automobile washer steam to review. JUNE faxed the Statement of Expert Evaluation to Ms. Salter, will await response to see if she is willing to take pt on and start the process for guardianship. JUNE also called [facility] per physician's request to see what medications pt has been taking. The only script that pt has been getting from them is Depakote, 500mg ER, 1 tap PO daily. There is record of an Invega injection script also, from 12/26/16, though this has not been filled. SW let Dr. Martínez know this information. Pt is still intubated at this time and going for surgery w/Dr. Beal. SW will continue to follow regarding guardianship and likely skilled nursing placement. ELIZABETH Rust, PAPER CUP HANDLE MACHINE OPERATOR
--- NOTE | 2018-01-02 10:41 | NURSING ---
Pt to surgery at this time.
--- NOTE | 2018-01-02 11:48 | PCM.IMDPSTOP ---
Immediate Post-Op Note Date of Procedure: 01/02/18 Primary Surgeon/Physician: Sandro Beal bucket turner: None Pre-Operative Diagnosis: Draining abscess cluster right upper posterior medial thigh. Post-Operative Diagnosis: Same. Surgery/Procedure Performed:: Surgical preparation right upper posterior medial thigh with incision and drainage and excisional debridement draining abscess cluster (105 cm2). Description of Surgical Findings:: The patient is a 37 year old M with history of COPD and heart failure was admitted for confusion and shortness of breath. He was admitted to the ICU with respiratory issues and was intubated. It was noted he had an area of induration on his right upper posterior medial thigh with drainage. CT Pelvis was done which showed no perineal abscess and increased markings in the soft tissues overlying the lateral aspect of the right thigh. I was asked to evaluate this patient for surgical options for treatment. Today the patient underwent surgical preparation right upper posterior medial thigh with incision and drainage and excisional debridement draining abscess cluster (105 cm2). Size of defect right upper posterior medial thigh - 15 x 7 x 3.5 cm. Estimated Blood Loss: 50 ml. Specimen's removed: 1. Draining abscess cluster right upper posterior medial thigh to Pathology and Microbiology. 2. MRSA Wound DNA by PCR. Drains: None. Type of Anesthesia:: General - Admit VTE Documentation VTE Present on Admission: No VTE Mechan Device Prophylaxis: SCD's VTE Pharm Prophylaxis ordered?: Yes
[2018-01-02] MEDS: Chlorhexidine 15 ML PO ×2 (12:37→22:15)
[2018-01-02] MEDS: Senna/Docusate Sodium 1 Tablet 2 TABLET GT ×2 (12:38→22:15)
[2018-01-02] MEDS: Polyethylene Glycol 3350 17 GM PACKET GT ×2 (12:38→22:16)
[2018-01-02] MEDS: Famotidine 20 MG Tablet GT ×2 (12:38→22:15)
[2018-01-02] MEDS: Enoxaparin 40 MG/0.4 ML Syringe SC (12:38)
[2018-01-02] MEDS: Ibuprofen 100 MG/5 ML UDC 600 MG GT ×2 (12:40→22:17)
[2018-01-02] MEDS: RisperiDONE 1 MG Tablet NG ×2 (12:40→22:15)
--- NOTE | 2018-01-02 12:51 | RAD_ITS ---
STUDY: X-RAY CHEST REASON FOR EXAM: Male, 37 years old. Line placement. TECHNIQUE: Single AP portable view of the chest. COMPARISON: Comparison is made with prior examination done earlier today. FINDINGS: An endotracheal tube is in situ. The tip is at 2.8 cm proximal to the nitza. A nasogastric tube is seen with the tip at the gastroesophageal junction. There is been progressive infiltration and/or atelectasis in the left lower lobe with a small left pleural effusion. Increased markings are also seen in the left upper lobe. Moderate cardiomegaly. Normal mediastinum and eladio. Normal visualized pulmonary arteries. Normal visualized aortic arch and descending thoracic aorta. Normal visualized thoracic spine. Normal visualized ribs, clavicles, and shoulders. There is no demonstrated abnormality of the visualized soft tissue structures of the upper abdomen. RAD/Chest 1 View (Portable) IMPRESSION: Progressive infiltrate and/or atelectasis in the left lower lobe with blunting of left costophrenic angle. Increased markings in the left upper lobe. Follow-up is recommended. Electronically Signed: Silvano Ulloa MD at 13:43 EDT Tel [phone], Service support ,
[2018-01-02 13:27] LABS: M R Staph aureus DNA By PCR Negative (Negative); Probe Check PASS; Specimen Processing Control PASS; Staph aureus DNA By PCR NEGATIVE (Negative)
[2018-01-02 13:36] LABS: Bedside Glucose 133 mg/dL (70-110)
--- NOTE | 2018-01-02 15:06 | CASEMGMT ---
JUNE received a return call from [employer]. She said she is not able to accept anymore referrals for guardianship. She suggested SW check to see if he may qualify for the volunteer guardianship program. JUNE thanked her for the return call. JUNE will follow up on Friday. Elisabet HOLDEN
[2018-01-02 17:21] LABS: Bedside Glucose 131 mg/dL (70-110)
--- NOTE | 2018-01-02 18:04 | OP.PCM_ITS ---
Report of Operation Date of Procedure: 01/02/18 Pre-Operative Diagnosis: Draining abscess cluster right upper posterior medial thigh. Post-Operative Diagnosis: Same. Surgery/Procedure Performed:: Surgical preparation right upper posterior medial thigh with incision and drainage and excisional debridement draining abscess cluster (105 cm2). Description of Surgical Findings:: The patient is a 37 year old M with history of COPD and heart failure was admitted for confusion and shortness of breath. He was admitted to the ICU with respiratory issues and was intubated. It was noted he had an area of induration on his right upper posterior medial thigh with drainage. CT Pelvis was done which showed no perineal abscess and increased markings in the soft tissues overlying the lateral aspect of the right thigh. I was asked to evaluate this patient for surgical options for treatment. Patient was intubated and unable to sign his consent. Size of defect right upper posterior medial thigh - 15 x 7 x 3.5 cm. flexographic press operator: None Type of Anesthesia:: General Specimen's removed: 1. Draining abscess cluster right upper posterior medial thigh to Pathology and Microbiology. 2. MRSA Wound DNA by PCR. Drains: None. Estimated Blood Loss (mL): 50 ml. Description of Procedure: Patient was taken to OR in supine position already intubated. He was placed in the frog leg position which gave good exposure to the abscess. His right thigh and genitalia were prepped and draped in the usual fashion. SCD's were placed for DVT prophylaxis. Perioperative antibiotics were given intravenously. Using a scalpel, incision and drainage was done around the abscess cluster down through the subcutaneous tissue until the muscular fascia was seen. A lot of fat necrosis was seen. The muscle and fascia was inflamed but appeared viable without evidence of necrotizing process. Some pus was seen at the level of the fascia. Some of the fascia was debrided. The fat necrosis was also sharply excised and debrided as well. Some of the tissue was sent to Microbiology for culture. MRSA Wound DNA by PCR was also done. A positive culture may necessitate antibiotic modification. The rest of the tissue was sent to Pathology for analysis to rule out carcinoma. Hemostasis was obtained with electrocautery. The wound was irrigated with saline. The size of the wound after incision and drainage and excisional debridement was 15 x 7 x 3.5 cm. The wound was dressed with Mepitel nonadherent dressing followed by Kerlix gauze and Betadine followed by dry Kerlix gauze and ABD pad compression dressing. Patient tolerated the procedure well and will be sent back to ICU in stable condition. The VAC will be placed tomorrow. He will continue his IV antibiotics. Grafts/Implants Used: None. - Complications None. - Admit VTE Documentation VTE Present on Admission: No VTE Mechan Device Prophylaxis: SCD's VTE Pharm Prophylaxis ordered?: Yes Code Visit Surgery Charges CPT - 34236 ICD-10 - L02.415 37293 L02.415, S71.101A 98940 L02.415, S71.101A
--- NOTE | 2018-01-02 23:32 | CPS ---
patient was 94% on .75% via ventilator. patient weaned to .70%. Patients nurse informed.
[2018-01-02 23:41] LABS: Bedside Glucose 125 mg/dL (70-110)
[2018-01-03] VITALS (38 sets, daily range): BP systolic 121–157; BP diastolic 68–114; PULSE 53–94; RESP 14–20; TEMP 37.2–38.1; O2SAT 88–99
--- NOTE | 2018-01-03 01:38 | CPS ---
patient was 93% on .70% oxygen via vent. Patient weaned to .65%
[2018-01-03] MEDS: Propofol 10MG/Ml 1,000 MG/100 ML Bottle 4.635 MG CONT INF ×7 (02:01→22:01)
[2018-01-03] MEDS: Ipratropium/Albuterol Sulfate 3 ML AMPUL.NEB INHALATION ×6 (03:22→22:20)
--- NOTE | 2018-01-03 03:23 | CPS ---
patient was 94% on .65%. Patient weaned to .60%. Patients nurse aware.
[2018-01-03 04:58] LABS: ALB/GLOB Ratio 0.6 RATIO (0.9-2.4); AST(SGOT) 45 U/L (15-37); Alanine Aminotransfer ALT/SGPT 55 U/L (16-61); Albumin, Serum 2.3 g/dL (3.2-5.0); Alkaline Phosphatase 51 U/L (45-117); Anion Gap 4 (5-15); BUN 22 mg/dL (7-18); BUN/Creat Ratio 34.6 RATIO (10-20); Calcium,Total 7.6 mg/dL (8.5-10.1); Chloride 102 mmol/L (98-107); Cholesterol 134 mg/dL (200); Creatinine, Serum 0.64 mg/dL (0.70-1.30); EST Glomerular Filtration Rate 150 mL/min (>60); Est Glom Filt Rate - Afr Amer 181 mL/min (>60); Estimated Creatinine Clearance 131.04 ml/min; Globulin 3.8 g/dL (2.2-4.2); Glucose 131 mg/dL (74-106); High Density Lipoprotein 26 mg/dL; Magnesium 2.3 mg/dL (1.6-2.6); Phosphorus 4.7 mg/dL (2.5-4.9); Potassium 5.1 mmol/L (3.5-5.1); Prealbumin 22.9 mg/dL (20.0-40.0); Protein, Total 6.1 g/dL (6.4-8.2); Sodium Level 141 mmol/L (136-145); Triglycerides 189 mg/dL; Very Low Density Lipoprotein 38 mg/dL (5-40)
[2018-01-03] MEDS: Nystatin Powder 15gm Bottle 1 APPLIC TOPICAL ×4 (05:01→22:06)
[2018-01-03] MEDS: CHLORHEXIDINE GLUC 2% CLOTH 1 EACH TOWELETTE TOPICAL (05:01)
[2018-01-03 05:06] LABS: Bedside Glucose 105 mg/dL (70-110)
[2018-01-03 05:21] LABS: Hematocrit 43.8 % (40-54); Hemoglobin 13.5 g/dl (13.0-16.5); Mean Corp Hgb Conc 30.8 g/gl (32-36); Mean Corpuscular Hgb 28.5 pg (27.0-32.0); Mean Corpuscular Volume 92.6 fL (80-94); Mean Platelet Vol. 9.6 fl (6.2-12.0); Platelet Count 236 K/mm3 (150-450); RBC Distribution Width CV 15.3 % (11.6-14.6); RBC Distribution Width SD 50.3 fl (35.1-43.9); Red Blood Count 4.73 M/mm3 (4.6-6.2); Scan Indicated on CBC? Y/N NO; White Blood Count 11.1 K/mm3 (4.4-11.0)
--- NOTE | 2018-01-03 07:19 | PCM.PN.INT ---
Subjective: The patient was seen and examined at the bedside this morning. Events from the last 24 hours have been reviewed. The patient currently has a low-grade fever but remains hemodynamically stable. FiO2 requirement remains at 60%. The patient does become extremely agitated with lightening of his baseline sedation. The patient did undergo successful I&D and excisional debridement of his right posterior medial thigh abscess. Objective: The patient's most recent lab work, culture data and imaging studies have all been personally reviewed. Strep and urine Legionella antigens were both negative. Blood cultures are pending. Respiratory viral panel was negative. Sputum and wound cultures are pending. Surface echocardiogram from January 2015 revealed normal LV size and function with an ejection fraction of 65%. Pulmonary function testing last completed in May 2016 revealed evidence of an irreversible moderately severe large airways obstructive ventilatory defect with associated air trapping and reduction in diffusing capacity. Polysomnogram completed in June 2015 revealed evidence of severe obstructive sleep apnea for which bilevel therapy with a pressure setting of 17/11 cm of water was recommended with a 3 L/min supplemental oxygen bleed in. CTA chest dated January 01 revealed no evidence for pulmonary embolism. However, it did demonstrate multifocal pneumonia bilaterally. General: - - Remains intubated, sedated and mechanically ventilated. HEENT: Atraumatic, PERRLA, Normocephalic Oral: No Gingival or Mucosal Lesions/ Ulcerations, - - Endotracheal and OG tubes remain in place. Neck: Supple, No Nodes, Trachea Midline Lungs: No rhonchi, No wheeze, No rales, Diminished Cardiovascular: Regular rate, Regular Rhythm, Normal S1, Normal S2, No murmurs Abdomen: Bowel Sounds Present, Soft, Non Tender, Obese Extremities: No clubbing, No cyanosis, Edema Skin: - - Postoperative changes noted from surgical I&D of right posterior medial thigh abscess Musculoskeletal: No Tenderness to Palpation of Joints or Extremities Lymphatic: No Cervical, Supraclavicular, or Inguinal Adenopathy Neurological: - - No focal neurological deficits. Currently sedated. Moves extremities spontaneously. Vital Signs Temp Pulse Resp BP Pulse Ox 99.5 F H 56 L 16 121/72 H 94 01/03/18 06:00 01/03/18 06:00 01/03/18 06:00 01/03/18 06:00 01/03/18 06:00 Oxygen Flow Rate (L/min) 16 Oxygen Delivery Method Mechanical Ventilator Weight: 338 lb 10.08 oz Body Mass Index (BMI) 58.3 Intake and Output for Last 24 Hours 01/01/18 01/02/18 01/03/18 23:59 23:59 23:59 Intake Total 3245 / 3245 2662 / 2662 590 / 590 Output Total 1550 / 1550 950 / 950 200 / 200 Balance 1695 / 1695 1712 / 1712 390 / 390 Labs (Last 48 Hours) 01/01/18 01/01/18 01/01/18 09:30 14:40 17:51 WBC RBC Hgb Hct MCV MCH MCHC RDW RDW Differential Plt Count MPV Immature Gran % (Auto) Neut % (Auto) Lymph % (Auto) [place] % (Auto) Eos % (Auto) Baso % (Auto) Absolute Neuts (auto) Absolute Lymphs (auto) Total Counted Sodium Potassium Chloride Carbon Dioxide Anion Gap BUN Creatinine Estim Creat Clear Calc Est GFR (MDRD) Af Amer Est GFR (MDRD) Non-Af BUN/Creatinine Ratio Glucose Calcium Phosphorus Magnesium Total Bilirubin AST ALT Alkaline Phosphatase Total Protein Albumin Globulin Albumin/Globulin Ratio Prealbumin Triglycerides Cholesterol LDL Cholesterol VLDL Cholesterol HDL Cholesterol S.aureus Protein A PCR NEGATIVE MRSA (PCR) Negative POC Glucose 121 H 122 H 01/01/18 01/02/18 01/02/18 23:32 04:35 04:35 WBC 10.7 RBC 4.70 Hgb 13.5 Hct 43.3 MCV 92.1 MCH 28.7 MCHC 31.2 L RDW 15.3 H RDW Differential 49.7 H Plt Count 242 MPV 9.4 Immature Gran % (Auto) 0.400 Neut % (Auto) 82.9 H Lymph % (Auto) 9.3 L [place] % (Auto) 7.3 Eos % (Auto) 0.0 Baso % (Auto) 0.1 Absolute Neuts (auto) 8.9 H Absolute Lymphs (auto) 0.99 Total Counted Not Reportable Sodium 143 Potassium 4.4 Chloride 101 Carbon Dioxide 36.0 H Anion Gap 6 BUN 16 Creatinine 0.64 L Estim Creat Clear Calc 131.04 Est GFR (MDRD) Af Amer 179 Est GFR (MDRD) Non-Af 148 BUN/Creatinine Ratio 24.9 H Glucose 134 H Calcium 8.1 L Phosphorus Magnesium Total Bilirubin AST ALT Alkaline Phosphatase Total Protein Albumin Globulin Albumin/Globulin Ratio Prealbumin Triglycerides Cholesterol LDL Cholesterol VLDL Cholesterol HDL Cholesterol S.aureus Protein A PCR MRSA (PCR) POC Glucose 125 H 01/02/18 01/02/18 01/02/18 06:08 11:35 13:28 WBC RBC Hgb Hct MCV MCH MCHC RDW RDW Differential Plt Count MPV Immature Gran % (Auto) Neut % (Auto) Lymph % (Auto) [place] % (Auto) Eos % (Auto) Baso % (Auto) Absolute Neuts (auto) Absolute Lymphs (auto) Total Counted Sodium Potassium Chloride Carbon Dioxide Anion Gap BUN Creatinine Estim Creat Clear Calc Est GFR (MDRD) Af Amer Est GFR (MDRD) Non-Af BUN/Creatinine Ratio Glucose Calcium Phosphorus Magnesium Total Bilirubin AST ALT Alkaline Phosphatase Total Protein Albumin Globulin Albumin/Globulin Ratio Prealbumin Triglycerides Cholesterol LDL Cholesterol VLDL Cholesterol HDL Cholesterol S.aureus Protein A PCR NEGATIVE MRSA (PCR) Negative POC Glucose 131 H 133 H 01/02/18 01/02/18 01/03/18 17:18 23:33 04:29 WBC RBC Hgb Hct MCV MCH MCHC RDW RDW Differential Plt Count MPV Immature Gran % (Auto) Neut % (Auto) Lymph % (Auto) [place] % (Auto) Eos % (Auto) Baso % (Auto) Absolute Neuts (auto) Absolute Lymphs (auto) Total Counted Sodium 141 Potassium 5.1 Chloride 102 Carbon Dioxide 35.0 H Anion Gap 4 L BUN 22 H Creatinine 0.64 L Estim Creat Clear Calc 131.04 Est GFR (MDRD) Af Amer 181 Est GFR (MDRD) Non-Af 150 BUN/Creatinine Ratio 34.6 H Glucose 131 H Calcium 7.6 L Phosphorus 4.7 Magnesium 2.3 Total Bilirubin 0.50 AST 45 H ALT 55 Alkaline Phosphatase 51 Total Protein 6.1 L Albumin 2.3 L Globulin 3.8 Albumin/Globulin Ratio 0.6 L Prealbumin 22.9 Triglycerides 189 Cholesterol 134 LDL Cholesterol 70 VLDL Cholesterol 38 HDL Cholesterol 26 L S.aureus Protein A PCR MRSA (PCR) POC Glucose 131 H 125 H 18 01/03/18 05:03 05:15 WBC 11.1 H RBC 4.73 Hgb 13.5 Hct 43.8 MCV 92.6 MCH 28.5 MCHC 30.8 L RDW 15.3 H RDW Differential 50.3 H Plt Count 236 MPV 9.6 Immature Gran % (Auto) Neut % (Auto) Lymph % (Auto) [place] % (Auto) Eos % (Auto) Baso % (Auto) Absolute Neuts (auto) Absolute Lymphs (auto) Total Counted Sodium Potassium Chloride Carbon Dioxide Anion Gap BUN Creatinine Estim Creat Clear Calc Est GFR (MDRD) Af Amer Est GFR (MDRD) Non-Af BUN/Creatinine Ratio Glucose Calcium Phosphorus Magnesium Total Bilirubin AST ALT Alkaline Phosphatase Total Protein Albumin Globulin Albumin/Globulin Ratio Prealbumin Triglycerides Cholesterol LDL Cholesterol VLDL Cholesterol HDL Cholesterol S.aureus Protein A PCR MRSA (PCR) POC Glucose 105 Microbiology 01/02/18 11:35 Tissue - Leg, Right Gram Stain - Final 01/01/18 Unknown Wound Abcess - Groin Gram Stain - Final 01/01/18 Unknown Wound Abcess - Groin Wound Culture - Preliminary Staphylococcus species 01/01/18 09:15 Sputum, Induced/Lukens Gram Stain - Final 01/01/18 02:48 Mucosa - Nose Respiratory Panel (PCR) - Final 01/01/18 02:48 Mucosa - Nose Influenza Types A,B Direct FA (SAI) - Final Clinical Impression(s) from Imaging Studies Chest X-Ray 12/31/17 20:02 IMPRESSION: Moderate cardiomegaly. No acute cardiopulmonary disease process is seen. Electronically Signed: Kiran Gorman MD at 20:26 EDT , Service support , Chest X-Ray 12/31/17 23:45 IMPRESSION: Interval placement of an NG tube and ET tube with the ET tube at 2.5 cm above the nitza. Cardiomegaly. No acute findings in the lungs Electronically Signed: Jayant Lewis, at 0:28 EDT Tel , Service support , Chest CTA 01/01/18 08:05 IMPRESSION: There is no evidence of pulmonary embolism. Patchy infiltrates in the left upper lobe as well as in both lower lobes worse on the left side. Electronically Signed: Silvano Ulloa MD at 11:19 EDT Tel [phone], Service support , Pelvis CT 01/01/18 10:20 IMPRESSION: No perineal abscess is seen. Increased markings in the soft tissues overlying the lateral aspect of the right thigh. Electronically Signed: Silvano Ulloa MD at 12:30 EDT Tel [phone], Service support , Chest X-Ray 01/02/18 05:00 IMPRESSION: Cardiomegaly. An area of a single platelike atelectatic change in the left costophrenic angle. An ET tube is in place with the tip 3.7 cm above the nitza Electronically Signed: Jayant Lewis, at 6:37 EDT Tel , Service support , Chest X-Ray 01/02/18 12:51 IMPRESSION: Progressive infiltrate and/or atelectasis in the left lower lobe with blunting of left costophrenic angle. Increased markings in the left upper lobe. Follow-up is recommended. Electronically Signed: Silvano Ulloa MD at 13:43 EDT Tel [phone], Service support , Medical Necessity - Tobacco Use Smoking Status: Current every day smoker Assessment/Plan All Active Problems Altered mental status (Acute) CAP (community acquired pneumonia) (Resolved) Acute on chronic respiratory failure with hypoxia and hypercapnia (Acute) COPD exacerbation (Acute) RECOMMENDATIONS: 1. Continue current supportive measures with mechanical ventilation. Continue current sedation regimen with plans to maintain a RASS of -1 to 1. 2. Continue scheduled bronchodilators and steroids. IV methylprednisone to be transition to prednisone 40 mg daily by mouth. 3. Continue antibiotics. Agree with adding back vancomycin while wound cultures are pending, given ongoing fevers. 4. Continue Lovenox and Pepcid for ICU prophylaxis 5. Continue local wound care, following surgical I&D of thigh abscess 6. Continue tube feeds 7. Continue sliding scale insulin coverage and bowel regimen IMPRESSIONS: 1. Acute on chronic combined respiratory failure Likely secondary to COPD with acute exacerbation secondary to suboptimally treated COPD and HCAP. We will plan to continue current supportive measures with mechanical ventilation. We will plan to preferentially wean FiO2 today to maintain oxygen saturations at or above 90%. Once the patient's FiO2 has been weaned down, his PEEP can then be weaned. Continue antibiotics accordingly. Vancomycin will be added back empirically given ongoing fevers, pending finalized wound culture results. In addition, scheduled bronchodilators and steroids will be continued. IV methylprednisone will be transitioned to prednisone today. Tube feeds will be continued. Plan for daily paired spontaneous awakening and breathing trials. Continue propofol and fentanyl for sedation with a goal to maintain a RASS of -1 to 1. Given the patient's history of medical noncompliance, poor disease insight and recurrent hospital admissions, attempts to obtain court appointed emergency guardianship is currently being undertaken. 2. Hypercarbic encephalopathy Improving with correction of his underlying acid-base disturbance. Continue supportive measures as noted above. 3. Severe obstructive sleep apnea, noncompliant with the use of nocturnal PAP therapy/alveolar hypoventilation secondary to obesity Once the patient is able to be liberated from mechanical ventilation, bilevel therapy can be initiated with naps and nightly per the recommendations of his previous polysomnogram, 17/11 cm of water + 3 L/min supplemental oxygen bleed. 4. Ongoing tobacco dependence Smoking cessation is strongly advisable. The patient can be offered nicotine replacement therapy while admitted to the hospital. 5. Medical noncompliance/bipolar disorder/hypertension/GERD/inadequate material resources Complicates care, management, recovery and prognosis. TIME: 40 minutes of critical care time, independent of procedures, was spent addressing the patient's acute on chronic combined respiratory failure, hypercarbic encephalopathy, severe obstructive sleep apnea, ongoing tobacco dependence, lower extremity soft tissue abscess, review of all data and collaboration with the care team. ([id number]) Code Visit 9xxxx: [id number] Critical care first hour
--- NOTE | 2018-01-03 07:22 | PN_ITS ---
Subjective: The patient was seen and examined at the bedside this morning. Events from the last 24 hours have been reviewed. The patient currently has a low-grade fever but remains hemodynamically stable. FiO2 requirement remains at 60%. The patient does become extremely agitated with lightening of his baseline sedation. The patient did undergo successful I&D and excisional debridement of his right posterior medial thigh abscess. Objective: The patient's most recent lab work, culture data and imaging studies have all been personally reviewed. Strep and urine Legionella antigens were both negative. Blood cultures are pending. Respiratory viral panel was negative. Sputum and wound cultures are pending. Surface echocardiogram from January 2015 revealed normal LV size and function with an ejection fraction of 65%. Pulmonary function testing last completed in May 2016 revealed evidence of an irreversible moderately severe large airways obstructive ventilatory defect with associated air trapping and reduction in diffusing capacity. Polysomnogram completed in June 2015 revealed evidence of severe obstructive sleep apnea for which bilevel therapy with a pressure setting of 17/ 11 cm of water was recommended with a 3 L/min supplemental oxygen bleed in. CTA chest dated January 01 revealed no evidence for pulmonary embolism. However, it did demonstrate multifocal pneumonia bilaterally. General: - - Remains intubated, sedated and mechanically ventilated. HEENT: Atraumatic, PERRLA, Normocephalic Oral: No Gingival or Mucosal Lesions/ Ulcerations, - - Endotracheal and OG tubes remain in place. Neck: Supple, No Nodes, Trachea Midline Lungs: No rhonchi, No wheeze, No rales, Diminished Cardiovascular: Regular rate, Regular Rhythm, Normal S1, Normal S2, No murmurs Abdomen: Bowel Sounds Present, Soft, Non Tender, Obese Extremities: No clubbing, No cyanosis, Edema Skin: - - Postoperative changes noted from surgical I&D of right posterior medial thigh abscess Musculoskeletal: No Tenderness to Palpation of Joints or Extremities Lymphatic: No Cervical, Supraclavicular, or Inguinal Adenopathy Neurological: - - No focal neurological deficits. Currently sedated. Moves extremities spontaneously. Vital Signs Temp Pulse Resp BP Pulse Ox 99.5 F H 56 L 16 121/72 H 94 01/03/18 06:00 01/03/18 06:00 01/03/18 06:00 01/03/18 06:00 01/03/18 06:00 Oxygen Flow Rate (L/min) 16 Oxygen Delivery Method Mechanical Ventilator Weight: 338 lb 10.08 oz Body Mass Index (BMI) 58.3 Intake and Output for Last 24 Hours 01/01/18 01/02/18 01/03/18 23:59 23:59 23:59 Intake Total 3245 / 3245 2662 / 2662 590 / 590 Output Total 1550 / 1550 950 / 950 200 / 200 Balance 1695 / 1695 1712 / 1712 390 / 390 Labs (Last 48 Hours) 01/01/18 01/01/18 01/01/18 09:30 14:40 17:51 WBC RBC Hgb Hct MCV MCH MCHC RDW RDW Differential Plt Count MPV Immature Gran % (Auto) Neut % (Auto) Lymph % (Auto) [place] % (Auto) Eos % (Auto) Baso % (Auto) Absolute Neuts (auto) Absolute Lymphs (auto) Total Counted Sodium Potassium Chloride Carbon Dioxide Anion Gap BUN Creatinine Estim Creat Clear Calc Est GFR (MDRD) Af Amer Est GFR (MDRD) Non-Af BUN/Creatinine Ratio Glucose Calcium Phosphorus Magnesium Total Bilirubin AST ALT Alkaline Phosphatase Total Protein Albumin Globulin Albumin/Globulin Ratio Prealbumin Triglycerides Cholesterol LDL Cholesterol VLDL Cholesterol HDL Cholesterol S.aureus Protein A PCR NEGATIVE MRSA (PCR) Negative POC Glucose 121 H 122 H 01/01/18 01/02/18 01/02/18 23:32 04:35 04:35 WBC 10.7 RBC 4.70 Hgb 13.5 Hct 43.3 MCV 92.1 MCH 28.7 MCHC 31.2 L RDW 15.3 H RDW Differential 49.7 H Plt Count 242 MPV 9.4 Immature Gran % (Auto) 0.400 Neut % (Auto) 82.9 H Lymph % (Auto) 9.3 L [place] % (Auto) 7.3 Eos % (Auto) 0.0 Baso % (Auto) 0.1 Absolute Neuts (auto) 8.9 H Absolute Lymphs (auto) 0.99 Total Counted Not Reportable Sodium 143 Potassium 4.4 Chloride 101 Carbon Dioxide 36.0 H Anion Gap 6 BUN 16 Creatinine 0.64 L Estim Creat Clear Calc 131.04 Est GFR (MDRD) Af Amer 179 Est GFR (MDRD) Non-Af 148 BUN/Creatinine Ratio 24.9 H Glucose 134 H Calcium 8.1 L Phosphorus Magnesium Total Bilirubin AST ALT Alkaline Phosphatase Total Protein Albumin Globulin Albumin/Globulin Ratio Prealbumin Triglycerides Cholesterol LDL Cholesterol VLDL Cholesterol HDL Cholesterol S.aureus Protein A PCR MRSA (PCR) POC Glucose 125 H 01/02/18 01/02/18 01/02/18 06:08 11:35 13:28 WBC RBC Hgb Hct MCV MCH MCHC RDW RDW Differential Plt Count MPV Immature Gran % (Auto) Neut % (Auto) Lymph % (Auto) [place] % (Auto) Eos % (Auto) Baso % (Auto) Absolute Neuts (auto) Absolute Lymphs (auto) Total Counted Sodium Potassium Chloride Carbon Dioxide Anion Gap BUN Creatinine Estim Creat Clear Calc Est GFR (MDRD) Af Amer Est GFR (MDRD) Non-Af BUN/Creatinine Ratio Glucose Calcium Phosphorus Magnesium Total Bilirubin AST ALT Alkaline Phosphatase Total Protein Albumin Globulin Albumin/Globulin Ratio Prealbumin Triglycerides Cholesterol LDL Cholesterol VLDL Cholesterol HDL Cholesterol S.aureus Protein A PCR NEGATIVE MRSA (PCR) Negative POC Glucose 131 H 133 H 01/02/18 01/02/18 01/03/18 17:18 23:33 04:29 WBC RBC Hgb Hct MCV MCH MCHC RDW RDW Differential Plt Count MPV Immature Gran % (Auto) Neut % (Auto) Lymph % (Auto) [place] % (Auto) Eos % (Auto) Baso % (Auto) Absolute Neuts (auto) Absolute Lymphs (auto) Total Counted Sodium 141 Potassium 5.1 Chloride 102 Carbon Dioxide 35.0 H Anion Gap 4 L BUN 22 H Creatinine 0.64 L Estim Creat Clear Calc 131.04 Est GFR (MDRD) Af Amer 181 Est GFR (MDRD) Non-Af 150 BUN/Creatinine Ratio 34.6 H Glucose 131 H Calcium 7.6 L Phosphorus 4.7 Magnesium 2.3 Total Bilirubin 0.50 AST 45 H ALT 55 Alkaline Phosphatase 51 Total Protein 6.1 L Albumin 2.3 L Globulin 3.8 Albumin/Globulin Ratio 0.6 L Prealbumin 22.9 Triglycerides 189 Cholesterol 134 LDL Cholesterol 70 VLDL Cholesterol 38 HDL Cholesterol 26 L S.aureus Protein A PCR MRSA (PCR) POC Glucose 131 H 125 H 18 01/03/18 05:03 05:15 WBC 11.1 H RBC 4.73 Hgb 13.5 Hct 43.8 MCV 92.6 MCH 28.5 MCHC 30.8 L RDW 15.3 H RDW Differential 50.3 H Plt Count 236 MPV 9.6 Immature Gran % (Auto) Neut % (Auto) Lymph % (Auto) [place] % (Auto) Eos % (Auto) Baso % (Auto) Absolute Neuts (auto) Absolute Lymphs (auto) Total Counted Sodium Potassium Chloride Carbon Dioxide Anion Gap BUN Creatinine Estim Creat Clear Calc Est GFR (MDRD) Af Amer Est GFR (MDRD) Non-Af BUN/Creatinine Ratio Glucose Calcium Phosphorus Magnesium Total Bilirubin AST ALT Alkaline Phosphatase Total Protein Albumin Globulin Albumin/Globulin Ratio Prealbumin Triglycerides Cholesterol LDL Cholesterol VLDL Cholesterol HDL Cholesterol S.aureus Protein A PCR MRSA (PCR) POC Glucose 105 Microbiology 01/02/18 11:35 Tissue - Leg, Right Gram Stain - Final 01/01/18 Unknown Wound Abcess - Groin Gram Stain - Final 01/01/18 Unknown Wound Abcess - Groin Wound Culture - Preliminary Staphylococcus species 01/01/18 09:15 Sputum, Induced/Lukens Gram Stain - Final 01/01/18 02:48 Mucosa - Nose Respiratory Panel (PCR) - Final 01/01/18 02:48 Mucosa - Nose Influenza Types A,B Direct FA (SAI) - Final Clinical Impression(s) from Imaging Studies Chest X-Ray 12/31/17 20:02 IMPRESSION: Moderate cardiomegaly. No acute cardiopulmonary disease process is seen. Electronically Signed: Kiran Gorman MD at 20:26 EDT , Service support , Chest X-Ray 12/31/17 23:45 IMPRESSION: Interval placement of an NG tube and ET tube with the ET tube at 2.5 cm above the nitza. Cardiomegaly. No acute findings in the lungs Electronically Signed: Jayant Lewis, at 0:28 EDT Tel , Service support , Chest CTA 01/01/18 08:05 IMPRESSION: There is no evidence of pulmonary embolism. Patchy infiltrates in the left upper lobe as well as in both lower lobes worse on the left side. Electronically Signed: Silvano Ulloa MD at 11:19 EDT Tel [phone], Service support , Pelvis CT 01/01/18 10:20 IMPRESSION: No perineal abscess is seen. Increased markings in the soft tissues overlying the lateral aspect of the right thigh. Electronically Signed: Silvano Ulloa MD at 12:30 EDT Tel [phone], Service support , Chest X-Ray 01/02/18 05:00 IMPRESSION: Cardiomegaly. An area of a single platelike atelectatic change in the left costophrenic angle. An ET tube is in place with the tip 3.7 cm above the nitza Electronically Signed: Jayant Lewis, at 6:37 EDT Tel , Service support , Chest X-Ray 01/02/18 12:51 IMPRESSION: Progressive infiltrate and/or atelectasis in the left lower lobe with blunting of left costophrenic angle. Increased markings in the left upper lobe. Follow-up is recommended. Electronically Signed: Silvano Ulloa MD at 13:43 EDT Tel [phone], Service support , Medical Necessity - Tobacco Use Smoking Status: Current every day smoker Assessment/Plan All Active Problems Altered mental status (Acute) CAP (community acquired pneumonia) (Resolved) Acute on chronic respiratory failure with hypoxia and hypercapnia (Acute) COPD exacerbation (Acute) RECOMMENDATIONS: 1. Continue current supportive measures with mechanical ventilation. Continue current sedation regimen with plans to maintain a RASS of -1 to 1. 2. Continue scheduled bronchodilators and steroids. IV methylprednisone to be transition to prednisone 40 mg daily by mouth. 3. Continue antibiotics. Agree with adding back vancomycin while wound cultures are pending, given ongoing fevers. 4. Continue Lovenox and Pepcid for ICU prophylaxis 5. Continue local wound care, following surgical I&D of thigh abscess 6. Continue tube feeds 7. Continue sliding scale insulin coverage and bowel regimen IMPRESSIONS: 1. Acute on chronic combined respiratory failure Likely secondary to COPD with acute exacerbation secondary to suboptimally treated COPD and HCAP. We will plan to continue current supportive measures with mechanical ventilation. We will plan to preferentially wean FiO2 today to maintain oxygen saturations at or above 90%. Once the patient's FiO2 has been weaned down, his PEEP can then be weaned. Continue antibiotics accordingly. Vancomycin will be added back empirically given ongoing fevers, pending finalized wound culture results. In addition, scheduled bronchodilators and steroids will be continued. IV methylprednisone will be transitioned to prednisone today. Tube feeds will be continued. Plan for daily paired spontaneous awakening and breathing trials. Continue propofol and fentanyl for sedation with a goal to maintain a RASS of -1 to 1. Given the patient's history of medical noncompliance, poor disease insight and recurrent hospital admissions, attempts to obtain court appointed emergency guardianship is currently being undertaken. 2. Hypercarbic encephalopathy Improving with correction of his underlying acid-base disturbance. Continue supportive measures as noted above. 3. Severe obstructive sleep apnea, noncompliant with the use of nocturnal PAP therapy/alveolar hypoventilation secondary to obesity Once the patient is able to be liberated from mechanical ventilation, bilevel therapy can be initiated with naps and nightly per the recommendations of his previous polysomnogram, 17/11 cm of water + 3 L/min supplemental oxygen bleed. 4. Ongoing tobacco dependence Smoking cessation is strongly advisable. The patient can be offered nicotine replacement therapy while admitted to the hospital. 5. Medical noncompliance/bipolar disorder/hypertension/GERD/inadequate material resources Complicates care, management, recovery and prognosis. TIME: 40 minutes of critical care time, independent of procedures, was spent addressing the patient's acute on chronic combined respiratory failure, hypercarbic encephalopathy, severe obstructive sleep apnea, ongoing tobacco dependence, lower extremity soft tissue abscess, review of all data and collaboration with the care team. ([id number]) Code Visit 9xxxx: [id number] Critical care first hour
--- NOTE | 2018-01-03 08:02 | PN_ITS ---
Patient Problems: Active and Suspected Problems Acute on chronic respiratory failure with hypoxia and hypercapnia (Acute) COPD exacerbation (Acute) Subjective: Postoperative day #1 All events of the past 24 hours have been reviewed. Antibiotic Day #4 cefepime Ventilator Day #4 TMAX: 102.5?F Vital signs: Current vital signs are temperature 99.5 core, pulse rate 56, blood pressure 121/72, respiratory rate 16 and he was 94% saturated on a 60% FiO2. 92% on 50% Fluid balance: +3797 since admission Urine output: Urine output on 622 was 950 cc. He had 200 cc overnight. Weight: Weight today is 338 pounds and 10 ounces, down from 340 pounds and 10 ounces at admission. All radiologic testing was reviewed: Chest x-ray on 01/02 shows increased infiltrate in the left base with probable effusion All labs were personally reviewed: White blood cell count today is 11.1 and hemoglobin is 13.5 with normal platelets. Potassium is 5.1 today and the BUN is 22 with a creatinine of 0.64. Serum bicarb is down to 35. Corrected calcium is within normal limits. Microbiology: Drainage from the wound abscess prior to going to surgery is growing Staphylococcus species. The PCR was negative for staph aureus. Culture taken at the time of surgery is pending. Telemetry: Subjective: He is awake and opening his eyes. Will answer yes and no questions. Pain in the knee is better today. No BM's but has been passing gas. He may have aspirated during surgery yesterday. Nurse reports TF from the ETT yesterday. He is tolerating the TF's without residual. He gets very agitated when attempting to place on CPAP and the BP increases. BS's are well controlled. Objective: Impressions 1. acute on chronic respiratory failure with hypoxia and hypercapnia 2. non-compliance with oxygen and BIPAP due to being homeless 3. Bipolar disorder/schizophrenia follows at the [facility] 4. Abscess RLE - I&D 01/[address] Beal. 5. COPD 6. SHANAE 7. pulmonary HTN 8. Tobacco dependence 9. Hypertension 10. GERD 11. Acute metabolic encephalopathy secondary to hypercarbia 12. Intertrigo 13. super obesity 14. multifocal pneumonia - likely due to aspiration...culture of sputum is negative Since the wound culture taken prior to I&D is growing Staph species will add Vancomycin since he has been in the hospital recently until the final culture until the final report is available Send another sputum culture since he may have aspirated yesterday during surgery Will discuss weaning the steroids with Dr. Hughes Continue ventilatory support. Wound vac today Awaiting court to consider appointing a guardian check a valproic acid level - Physical Exam Vital Signs Temp Pulse Resp BP Pulse Ox 99.5 F H 56 L 16 121/72 H 94 01/03/18 06:00 01/03/18 06:00 01/03/18 06:00 01/03/18 06:00 01/03/18 06:00 Oxygen Flow Rate (L/min) 16 Oxygen Delivery Method Mechanical Ventilator Weight: 338 lb 10.08 oz Body Mass Index (BMI) 58.3 Intake and Output for Last 24 Hours 01/01/18 01/02/18 01/03/18 23:59 23:59 23:59 Intake Total 3245 / 3245 2662 / 2662 590 / 590 Output Total 1550 / 1550 950 / 950 200 / 200 Balance 1695 / 1695 1712 / 1712 390 / 390 Microbiology Past 72 Hours 01/02/18 11:35 Gram Stain - Final Tissue - Leg, Right 01/01/18 Unknown Gram Stain - Final Wound Abcess - Groin Wound Culture - Preliminary Staphylococcus species 01/01/18 09:15 Gram Stain - Final Sputum, Induced/Lukens 01/01/18 02:48 Respiratory Panel (PCR) - Final Mucosa - Nose 01/01/18 02:48 Influenza Types A,B Direct FA (SAI) - Final Mucosa - Nose 01/01/18 01:50 Legionella Antigen - Final Urine Catheter - Case 01/01/18 01:50 Streptococcus pneumoniae Antigen (M - Final Urine Catheter - Catheter Laboratory Tests Past 24 Hrs 01/02/18 01/03/18 01/03/18 11:35 04:29 05:15 WBC 11.1 H RBC 4.73 Hgb 13.5 Hct 43.8 MCV 92.6 MCH 28.5 MCHC 30.8 L RDW 15.3 H RDW Differential 50.3 H Plt Count 236 MPV 9.6 Sodium 141 Potassium 5.1 Chloride 102 Carbon Dioxide 35.0 H Anion Gap 4 L BUN 22 H Creatinine 0.64 L Estim Creat Clear Calc 131.04 Est GFR (MDRD) Af Amer 181 Est GFR (MDRD) Non-Af 150 BUN/Creatinine Ratio 34.6 H Glucose 131 H Calcium 7.6 L Phosphorus 4.7 Magnesium 2.3 Total Bilirubin 0.50 AST 45 H ALT 55 Alkaline Phosphatase 51 Total Protein 6.1 L Albumin 2.3 L Globulin 3.8 Albumin/Globulin Ratio 0.6 L Prealbumin 22.9 Triglycerides 189 Cholesterol 134 LDL Cholesterol 70 VLDL Cholesterol 38 HDL Cholesterol 26 L S.aureus Protein A PCR NEGATIVE MRSA (PCR) Negative POC Glucose 01/03/18 01/02/18 01/02/18 05:03 23:33 17:18 POC Glucose 105 125 H 131 H 01/02/18 13:28 POC Glucose 133 H Medical Necessity - Tobacco Use Smoking Status: Current every day smoker Assessment/Plan All Active Problems Altered mental status (Acute) CAP (community acquired pneumonia) (Resolved) Acute on chronic respiratory failure with hypoxia and hypercapnia (Acute) COPD exacerbation (Acute) Code Visit Inpatient E&M: 49161 Subs Hosp L3
--- NOTE | 2018-01-03 08:32 | RAD_ITS ---
STUDY: X-RAY CHEST REASON FOR EXAM: Male, 37 years old. Pneumonia. Acute combined respiratory failure. TECHNIQUE: AP upright portable view. COMPARISON: 01/02/2018. FINDINGS: ET tube and NG tube are unchanged. Pulmonary hypoinflation. Improvement of vertical linear subsegmental atelectasis in the left upper lobe. Decreased subsegmental atelectasis in left lower lobe. No suspicious pneumonia. There is no demonstrated pleural abnormality. Cardiomegaly is unchanged. Normal mediastinum and eladio. Normal visualized pulmonary arteries. Normal visualized aortic arch and descending thoracic aorta. Normal visualized thoracic spine. Normal visualized ribs, clavicles, and shoulders. There is no demonstrated abnormality of the visualized soft tissue structures of the upper abdomen. RAD/Chest 1 View (Portable) IMPRESSION: 1. No suspicious pneumonia. 2. Clearing of linear vertical atelectasis in the left upper lobe. 3. Decrease subsegmental atelectasis in the left lower lobe. Electronically Signed: Ishaan Duenas MD at 12:54 EDT , Service support ,
[2018-01-03] MEDS: Chlorhexidine 15 ML PO ×2 (09:41→22:01)
--- NOTE | 2018-01-03 09:51 | CASEMGMT ---
SW participated in ICU rounds this morning, pt remains on the ventilator. SW will follow up on Friday to seek other attorneys who may consider taking this pt's case. ELIZABETH Rust, TUB WASH OPERATOR
[2018-01-03] MEDS: Senna/Docusate Sodium 1 Tablet 2 TABLET GT ×2 (10:14→22:03)
[2018-01-03] MEDS: RisperiDONE 1 MG Tablet NG ×2 (10:14→22:03)
[2018-01-03] MEDS: predniSONE 20 MG Tablet 40 MG PO (10:14)
[2018-01-03] MEDS: Polyethylene Glycol 3350 17 GM PACKET GT ×2 (10:15→22:03)
[2018-01-03] MEDS: Enoxaparin 40 MG/0.4 ML Syringe SC (10:15)
[2018-01-03] MEDS: Ibuprofen 100 MG/5 ML UDC 600 MG GT ×2 (10:16→22:04)
[2018-01-03] MEDS: Famotidine 20 MG Tablet GT ×2 (10:17→22:03)
--- NOTE | 2018-01-03 10:45 | PHA.PHARE_ITS ---
Consult Pharmacy has been consulted to manage selected antiobiotic: Vancomycin Type of Consult: New start Suspected Infection: Pneumonia Labs: Sodium 141 mmol/L (136-145) 01/03/18 04:29 Potassium 5.1 mmol/L (3.5-5.1) 01/03/18 04:29 Chloride 102 mmol/L (98-107) 01/03/18 04:29 Carbon Dioxide 35.0 mmol/L (21.0-32.0) H 01/03/18 04:29 Anion Gap 4 (5-15) L 01/03/18 04:29 BUN 22 mg/dL (7-18) H 01/03/18 04:29 Creatinine 0.64 mg/dL (0.70-1.30) L 01/03/18 04:29 Est GFR (MDRD) Af Amer 181 mL/min (>60) 01/03/18 04:29 Est GFR (MDRD) Non-Af 150 mL/min (>60) 01/03/18 04:29 BUN/Creatinine Ratio 34.6 RATIO (10-20) H 01/03/18 04:29 Glucose 131 mg/dL (74-106) H 01/03/18 04:29 Microbiology: Microbiology 01/01/18 02:00 Blood Culture (Wb) - Right Hand Blood Culture - Preliminary No growth in 48 hours. 01/01/18 09:15 Sputum, Induced/Lukens Gram Stain - Final 01/01/18 09:15 Sputum, Induced/Lukens Respiratory Culture - Final 01/01/18 Unknown Wound Abcess - Groin Gram Stain - Final 01/01/18 Unknown Wound Abcess - Groin Wound Culture - Final Coag Negative Staph Coag Negative Staph#2 Gram positive zaid 01/02/18 11:35 Tissue - Leg, Right Gram Stain - Final 01/01/18 02:48 Mucosa - Nose Respiratory Panel (PCR) - Final 01/01/18 02:48 Mucosa - Nose Influenza Types A,B Direct FA (SAI) - Final 01/01/18 01:50 Urine Catheter - Case Legionella Antigen - Final 01/01/18 01:50 Urine Catheter - Catheter Streptococcus pneumoniae Antigen ( M - Final Weight used for dosin.6 kg Estimated Creatinine Clearance: 131 ML/MIN Goal Trough: 15-20 mcg/mL Pharmacy Plan for Drug DosinMG IV X1, THEN 1500MG IV Q8H. Pharmacy Service will continue to monitor and adjust dosing as required. Follow-Up Labs: Trough Vancomycin Labs to be done on [date and time ordered]: 01/04/18 @ 08:30 (before the 4th dose at 09:00)
[2018-01-03 11:08] LABS: Valproic Acid (Depakene) Level 21 ug/mL (50-100)
[2018-01-03] MEDS: Vital AF 1.2 Cal Liquid 1,000 ML 70 ML GT (13:12)
[2018-01-03] MEDS: Silver Nitrate (BKC) 10 EACH TOPICAL (13:14)
--- NOTE | 2018-01-03 13:59 | PCM.PN.SRG ---
Patient Problems: Active and Suspected Problems Acute on chronic respiratory failure with hypoxia and hypercapnia (Acute) COPD exacerbation (Acute) Subjective: Postop #1 Patient is intubated and sedated. - Physical Exam Skin: Ulcer/ Wound - Right upper posterior medial thigh wound is clean with no further evidence of infection. Underlying muscle is viable. There was some oozing at the superior edges that was easily controlled with gauze pressure and silver nitrate chemical cauterization. Wound was redressed with Aquacel Silver and moistened Kerlix gauze. VAC is on hold. Vital Signs Temp Pulse Resp BP Pulse Ox 100.2 F H 94 16 157/95 H 94 01/03/18 13:00 01/03/18 13:00 01/03/18 13:00 01/03/18 13:00 01/03/18 13:00 Oxygen Flow Rate (L/min) 16 Oxygen Delivery Method Mechanical Ventilator Weight: 338 lb 10.08 oz Body Mass Index (BMI) 58.3 Intake and Output for Last 24 Hours 01/01/18 01/02/18 01/03/18 23:59 23:59 23:59 Intake Total 3245 / 3245 2662 / 2662 2288 / 2288 Output Total 1550 / 1550 950 / 950 800 / 800 Balance 1695 / 1695 1712 / 1712 1488 / 1488 Microbiology Past 72 Hours 01/02/18 11:35 Gram Stain - Final Tissue - Leg, Right Wound Culture - Preliminary No growth-Final to follow 01/01/18 02:00 Blood Culture - Preliminary Blood Culture (Wb) - Right Hand No growth in 48 hours. 01/01/18 09:15 Gram Stain - Final Sputum, Induced/Lukens Respiratory Culture - Final 01/01/18 Unknown Gram Stain - Final Wound Abcess - Groin Wound Culture - Final Coag Negative Staph Coag Negative Staph#2 Gram positive zaid 01/01/18 02:48 Respiratory Panel (PCR) - Final Mucosa - Nose 01/01/18 02:48 Influenza Types A,B Direct FA (SAI) - Final Mucosa - Nose 01/01/18 01:50 Legionella Antigen - Final Urine Catheter - Case 01/01/18 01:50 Streptococcus pneumoniae Antigen (M - Final Urine Catheter - Catheter Laboratory Tests Past 24 Hrs 01/03/18 01/03/18 01/03/18 04:29 05:15 10:00 WBC 11.1 H RBC 4.73 Hgb 13.5 Hct 43.8 MCV 92.6 MCH 28.5 MCHC 30.8 L RDW 15.3 H RDW Differential 50.3 H Plt Count 236 MPV 9.6 Sodium 141 Potassium 5.1 Chloride 102 Carbon Dioxide 35.0 H Anion Gap 4 L BUN 22 H Creatinine 0.64 L Estim Creat Clear Calc 131.04 Est GFR (MDRD) Af Amer 181 Est GFR (MDRD) Non-Af 150 BUN/Creatinine Ratio 34.6 H Glucose 131 H Calcium 7.6 L Phosphorus 4.7 Magnesium 2.3 Total Bilirubin 0.50 AST 45 H ALT 55 Alkaline Phosphatase 51 Total Protein 6.1 L Albumin 2.3 L Globulin 3.8 Albumin/Globulin Ratio 0.6 L Prealbumin 22.9 Triglycerides 189 Cholesterol 134 LDL Cholesterol 70 VLDL Cholesterol 38 HDL Cholesterol 26 L Valproic Acid 21 L POC Glucose 01/03/18 01/02/18 01/02/18 05:03 23:33 17:18 POC Glucose 105 125 H 131 H Medical Necessity - Tobacco Use Smoking Status: Current every day smoker Assessment/Plan All Active Problems Altered mental status (Acute) CAP (community acquired pneumonia) (Resolved) Acute on chronic respiratory failure with hypoxia and hypercapnia (Acute) COPD exacerbation (Acute) 1. Draining abscess cluster right upper posterior medial thigh. 2. s/p surgical preparation right upper posterior medial thigh with incision and drainage and excisional debridement draining abscess cluster (105 cm2). Wound is stable with no further evidence of infection. There was some oozing at the superior edge of the wound. Easily controlled with gauze pressure and silver nitrate chemical cauterization. Wound was dressed with Aquacel Silver and moistened Kerlix gauze compression dressing. VAC is on hold today. May try the VAC tomorrow. Otherwise continue the Aquacel Silver dressings daily. Operative culture negative thus far. Preop cultures show Coag negative Staph and Gram positive zaid. He is currently on Vancomycin and Cefepime. Prealbumin is 22.9. Encourage nutritional supplementation with protein to help the healing process.
[2018-01-03 15:41] LABS: Bedside Glucose 117 mg/dL (70-110)
[2018-01-03 17:56] LABS: Bedside Glucose 125 mg/dL (70-110)
[2018-01-04] VITALS (40 sets, daily range): BP systolic 100–159; BP diastolic 56–78; PULSE 54–96; RESP 14–24; TEMP 36.9–37.5; O2SAT 89–94
[2018-01-04 00:20] LABS: Bedside Glucose 107 mg/dL (70-110)
[2018-01-04] MEDS: Propofol 10MG/Ml 1,000 MG/100 ML Bottle 4.635 MG CONT INF ×7 (00:50→21:38)
[2018-01-04] MEDS: Nystatin Powder 15gm Bottle 1 APPLIC TOPICAL ×4 (00:51→21:46)
[2018-01-04] MEDS: Ipratropium/Albuterol Sulfate 3 ML AMPUL.NEB INHALATION ×6 (02:18→22:37)
[2018-01-04] MEDS: Vital AF 1.2 Cal Liquid 1,000 ML 70 ML GT ×2 (03:27→21:38)
[2018-01-04 04:38] LABS: Absolute Lymphocyte Count 2.58 X10^3/ul (0.83-4.51); Absolute Neutrophil Count 6.1 X10^3/uL (2.0-7.7); Basophil# 0.01 X10^3/uL; Basophil% 0.1 % (0-1); Eosinophil# 0.04 X10^3/uL; Eosinophils% 0.4 % (0-5); Hematocrit 40.6 % (40-54); Hemoglobin 12.6 g/dl (13.0-16.5); Lymphocyte # 2.58 X10^3/ul (4.0); Lymphocyte % 26.5 % (19-41); Mean Corpuscular Hgb 28.9 pg (27.0-32.0); Mean Corpuscular Volume 93.1 fL (80-94); Mean Platelet Vol. 9.4 fl (6.2-12.0); Monocyte# 1.02 X10^3/uL; Monocyte% 10.5 % (0-10); Neutrophil # 6.05 X10^3/uL (2.7-7.7); Neutrophil % 62.2 % (47-70); Platelet Count 209 K/mm3 (150-450); RBC Distribution Width CV 15.1 % (11.6-14.6); RBC Distribution Width SD 50.1 fl (35.1-43.9); Red Blood Count 4.36 M/mm3 (4.6-6.2); White Blood Count 9.7 K/mm3 (4.4-11.0)
[2018-01-04 04:48] LABS: Anion Gap 5 (5-15); BUN 19 mg/dL (7-18); Calcium,Total 7.7 mg/dL (8.5-10.1); Chloride 104 mmol/L (98-107); Creatinine, Serum 0.53 mg/dL (0.70-1.30); EST Glomerular Filtration Rate 185 mL/min (>60); Est Glom Filt Rate - Afr Amer 224 mL/min (>60); Estimated Creatinine Clearance 158.24 ml/min; Glucose 89 mg/dL (74-106); Potassium 4.2 mmol/L (3.5-5.1); Sodium Level 144 mmol/L (136-145)
[2018-01-04 04:59] LABS: POSITIVE COUNT NO; POSITIVE DIFFERENTIAL NO; POSITIVE MORPHOLOGY NO
[2018-01-04 05:50] LABS: Bedside Glucose 96 mg/dL (70-110)
--- NOTE | 2018-01-04 06:29 | PN_ITS ---
Patient Problems: Active and Suspected Problems Acute on chronic respiratory failure with hypoxia and hypercapnia (Acute) COPD exacerbation (Acute) Subjective: 37 YO homeless male with PMH of super obesity, pulmonary hypertension, obstructive sleep apnea, chronic respiratory failure with hypoxia and hypercapnia, tobacco dependence, hypertension, GERD, bipolar disorder, schizophrenia, COPD admitted to the hospital with acute on chronic respiratory failure with hypoxia and hypercapnia, aspiration pneumonia and a large abscess R posterior medial thigh. Paperwork for court to appoint a guardian is in process. All events of the past 24 hours have been reviewed. Postoperative day #2 Antibiotic Day #5 Ventilator Day #5 TMAX: Afebrile Vital signs: Stable, FiO2 down to 40% and he is maintaining an O2 sat of 94%. Fluid balance: +8058 Urine output: 1556 on 01/03/2018 Weight: ? reliability.....Weight today is 330, down from 338 yesterday with + fluid balance of + 3632 yesterday. All radiologic testing was reviewed: CXR 01/03 with less atelectasis but with hypoinflation....suspect there is increase PVC per my review All labs were personally reviewed: White blood cell count today is 9.7 with a normal differential. Hemoglobin is down to 12.6 but I suspect this is dilutional as he is +8 L. Lites are normal. Serum bicarb is 35 today and the BUN is 19 with a creatinine of 0.53. Potassium is 4.2 No BS > 171 and he has been transitioned to Prednisone so will DC the accuchecks Microbiology: the initial wound culture is growing only coag neg Staph and Diptheroids. There has been no growth from the cultures taken at the time of surgery. the sputum sent to micro yesterday has no WBC's and no organisms on the GM stain Telemetry: NSR with no ectopy Subjective: He is opening his eyes when I call his name and he is able to squeeze my hand on command. He denies pain. Still having thick secretions from the ETT. Tolerating the TF well without residuals. Has had only a smear of stool since admission. wound vac not applied yesterday due to bleeding.....will apply today if no significant bleeding. Objective: PHYSICAL EXAM: GENERAL: intubated and sedated but able to open eyes and answer yes and no questions, Cooperative, NAD ORAL: moist mucosa, no mucosal lesions NECK: supple, trachea midline LUNGS: CTA, symmetric chest expansion, diminished throughout HEART: RRR, Normal S1 and S2, no rub, no gallop ABDOMEN: obese, soft, NT, ND, hypoactive BS present, no guarding with palpation EXTREMITIES: edema, no cyanosis, no calf tenderness SKIN: No rashes, will examine the wound when the dressing is taken down...if no bleeding wound vac will be applied today NEUROLOGIC: no focal neurologic deficits - Physical Exam Vital Signs Temp Pulse Resp BP Pulse Ox 98.7 F 67 16 159/76 H 94 01/04/18 05:00 01/04/18 06:00 01/04/18 06:00 01/04/18 06:00 01/04/18 06:00 Oxygen Flow Rate (L/min) 16 Oxygen Delivery Method Mechanical Ventilator Weight: 330 lb 4.039 oz Body Mass Index (BMI) 58.3 Intake and Output for Last 24 Hours 01/02/18 01/03/18 01/04/18 23:59 23:59 23:59 Intake Total 2662 / 2662 5188.3 / 5188.3 1219 / 1219 Output Total 950 / 950 1556 / 1556 200 / 200 Balance 1712 / 1712 3632.3 / 3632.3 1019 / 1019 Microbiology Past 72 Hours 01/03/18 09:30 Gram Stain - Final Sputum, Induced/Lukens 01/02/18 11:35 Gram Stain - Final Tissue - Leg, Right Wound Culture - Preliminary No growth-Final to follow 01/01/18 02:00 Blood Culture - Preliminary Blood Culture (Wb) - Right Hand No growth in 48 hours. 01/01/18 09:15 Gram Stain - Final Sputum, Induced/Lukens Respiratory Culture - Final 01/01/18 Unknown Gram Stain - Final Wound Abcess - Groin Wound Culture - Final Coag Negative Staph Coag Negative Staph#2 Gram positive zaid 01/01/18 02:48 Respiratory Panel (PCR) - Final Mucosa - Nose 01/01/18 02:48 Influenza Types A,B Direct FA (SAI) - Final Mucosa - Nose Laboratory Tests Past 24 Hrs 01/03/18 01/04/18 01/04/18 10:00 04:30 04:30 WBC 9.7 RBC 4.36 L Hgb 12.6 L Hct 40.6 MCV 93.1 MCH 28.9 MCHC 31.0 L RDW 15.1 H RDW Differential 50.1 H Plt Count 209 MPV 9.4 Immature Gran % (Auto) 0.300 Neut % (Auto) 62.2 Lymph % (Auto) 26.5 [place] % (Auto) 10.5 H Eos % (Auto) 0.4 Baso % (Auto) 0.1 Absolute Neuts (auto) 6.1 Absolute Lymphs (auto) 2.58 Total Counted Not Reportable Sodium 144 Potassium 4.2 Chloride 104 Carbon Dioxide 35.0 H Anion Gap 5 BUN 19 H Creatinine 0.53 L Estim Creat Clear Calc 158.24 Est GFR (MDRD) Af Amer 224 Est GFR (MDRD) Non-Af 185 BUN/Creatinine Ratio 36.0 H Glucose 89 Calcium 7.7 L Valproic Acid 21 L POC Glucose 01/04/18 01/03/18 01/03/18 05:36 23:11 17:53 POC Glucose 96 107 125 H 01/03/18 13:03 POC Glucose 117 H Medical Necessity - Tobacco Use Smoking Status: Current every day smoker Assessment/Plan All Active Problems Altered mental status (Acute) CAP (community acquired pneumonia) (Resolved) Acute on chronic respiratory failure with hypoxia and hypercapnia (Acute) COPD exacerbation (Acute) Impressions 1. acute on chronic respiratory failure with hypoxia and hypercapnia secondary to HCAP 2. non-compliance with oxygen and BIPAP due to being homeless 3. Bipolar disorder/schizophrenia follows at the counselling center 4. Abscess RLE - for surgery with Dr. Beal on 01/02 5. COPD 6. SHANAE 7. pulmonary HTN 8. Tobacco dependence 9. Hypertension 10. GERD 11. Acute metabolic encephalopathy secondary to hypercarbia 12. Intertrigo - resolved 13. super obesity 14. multifocal HCAP pneumonia - likely due to aspiration...culture of sputum is negative Continue cefepime DC the Vanco Add Mucinex to thin out the secretions from the ETT MOM today - no real BM in 5 days Lasix BID since he is 8 liters up BMP in the AM and mag and valproic acid level.....Depakote increased to better stabilize mood Continue famotidine for GI prophylaxis Continue Enoxaparin for DVT prophylaxis Continue Motrin twice daily for left knee pain-has been effective in controlling his pain Discontinue Accu-Cheks and sliding insulin scale since all blood sugars are less than 150 now Taper prednisone over the next 10 days. Code Visit Inpatient E&M: 99707 Subs Hosp L3
--- NOTE | 2018-01-04 06:32 | PCM.PN.INT ---
Subjective: The patient was seen and examined at the bedside this morning. Events from the last 24 hours have been reviewed. The patient is currently afebrile, hemodynamically stable and maintaining appropriate oxygen saturations on an FiO2 of 40%. The patient was placed on a spontaneous breathing trial this morning with a pressure support of 10 and PEEP of 8. The patient is currently overall net +8 L for the admission. Objective: The patient's most recent lab work, culture data and imaging studies have all been personally reviewed. Strep and urine Legionella antigens were both negative. Blood cultures are pending. Respiratory viral panel was negative. Sputum and wound cultures are pending. Surface echocardiogram from January 2015 revealed normal LV size and function with an ejection fraction of 65%. Pulmonary function testing last completed in May 2016 revealed evidence of an irreversible moderately severe large airways obstructive ventilatory defect with associated air trapping and reduction in diffusing capacity. Polysomnogram completed in June 2015 revealed evidence of severe obstructive sleep apnea for which bilevel therapy with a pressure setting of 17/11 cm of water was recommended with a 3 L/min supplemental oxygen bleed in. CTA chest dated January 01 revealed no evidence for pulmonary embolism. However, it did demonstrate multifocal pneumonia bilaterally. General: - - Remains intubated, sedated and mechanically ventilated. HEENT: Atraumatic, PERRLA, Normocephalic Oral: No Gingival or Mucosal Lesions/ Ulcerations, - - Endotracheal and OG tubes remain in place. Neck: Supple, No Nodes, Trachea Midline Lungs: No rhonchi, No wheeze, No rales, Diminished Cardiovascular: Regular rate, Regular Rhythm, Normal S1, Normal S2, No murmurs Abdomen: Bowel Sounds Present, Soft, Non Tender, Obese Extremities: No clubbing, No cyanosis, Edema Skin: - - No significant change from previous. Musculoskeletal: No Muscle Wasting Lymphatic: No Cervical, Supraclavicular, or Inguinal Adenopathy Neurological: - - No focal neurological deficits. Moves all extremities spontaneously. Will arouse and follow simple commands. Psych/Mental Status: Agitated, Anxious Vital Signs Temp Pulse Resp BP Pulse Ox 98.7 F 67 16 159/76 H 94 01/04/18 05:00 01/04/18 06:00 01/04/18 06:00 01/04/18 06:00 01/04/18 06:00 Oxygen Flow Rate (L/min) 16 Oxygen Delivery Method Mechanical Ventilator Weight: 330 lb 4.039 oz Body Mass Index (BMI) 58.3 Intake and Output for Last 24 Hours 01/02/18 01/03/18 01/04/18 23:59 23:59 23:59 Intake Total 2662 / 2662 5188.3 / 5188.3 1219 / 1219 Output Total 950 / 950 1556 / 1556 200 / 200 Balance 1712 / 1712 3632.3 / 3632.3 1019 / 1019 Labs (Last 48 Hours) 01/02/18 01/02/18 01/02/18 06:08 11:35 13:28 WBC RBC Hgb Hct MCV MCH MCHC RDW RDW Differential Plt Count MPV Immature Gran % (Auto) Neut % (Auto) Lymph % (Auto) [place] % (Auto) Eos % (Auto) Baso % (Auto) Absolute Neuts (auto) Absolute Lymphs (auto) Total Counted Sodium Potassium Chloride Carbon Dioxide Anion Gap BUN Creatinine Estim Creat Clear Calc Est GFR (MDRD) Af Amer Est GFR (MDRD) Non-Af BUN/Creatinine Ratio Glucose Calcium Phosphorus Magnesium Total Bilirubin AST ALT Alkaline Phosphatase Total Protein Albumin Globulin Albumin/Globulin Ratio Prealbumin Triglycerides Cholesterol LDL Cholesterol VLDL Cholesterol HDL Cholesterol Valproic Acid S.aureus Protein A PCR NEGATIVE MRSA (PCR) Negative POC Glucose 131 H 133 H 01/02/18 01/02/18 01/03/18 17:18 23:33 04:29 WBC RBC Hgb Hct MCV MCH MCHC RDW RDW Differential Plt Count MPV Immature Gran % (Auto) Neut % (Auto) Lymph % (Auto) [place] % (Auto) Eos % (Auto) Baso % (Auto) Absolute Neuts (auto) Absolute Lymphs (auto) Total Counted Sodium 141 Potassium 5.1 Chloride 102 Carbon Dioxide 35.0 H Anion Gap 4 L BUN 22 H Creatinine 0.64 L Estim Creat Clear Calc 131.04 Est GFR (MDRD) Af Amer 181 Est GFR (MDRD) Non-Af 150 BUN/Creatinine Ratio 34.6 H Glucose 131 H Calcium 7.6 L Phosphorus 4.7 Magnesium 2.3 Total Bilirubin 0.50 AST 45 H ALT 55 Alkaline Phosphatase 51 Total Protein 6.1 L Albumin 2.3 L Globulin 3.8 Albumin/Globulin Ratio 0.6 L Prealbumin 22.9 Triglycerides 189 Cholesterol 134 LDL Cholesterol 70 VLDL Cholesterol 38 HDL Cholesterol 26 L Valproic Acid S.aureus Protein A PCR MRSA (PCR) POC Glucose 131 H 125 H 01/03/18 01/03/18 01/03/18 05:03 05:15 10:00 WBC 11.1 H RBC 4.73 Hgb 13.5 Hct 43.8 MCV 92.6 MCH 28.5 MCHC 30.8 L RDW 15.3 H RDW Differential 50.3 H Plt Count 236 MPV 9.6 Immature Gran % (Auto) Neut % (Auto) Lymph % (Auto) [place] % (Auto) Eos % (Auto) Baso % (Auto) Absolute Neuts (auto) Absolute Lymphs (auto) Total Counted Sodium Potassium Chloride Carbon Dioxide Anion Gap BUN Creatinine Estim Creat Clear Calc Est GFR (MDRD) Af Amer Est GFR (MDRD) Non-Af BUN/Creatinine Ratio Glucose Calcium Phosphorus Magnesium Total Bilirubin AST ALT Alkaline Phosphatase Total Protein Albumin Globulin Albumin/Globulin Ratio Prealbumin Triglycerides Cholesterol LDL Cholesterol VLDL Cholesterol HDL Cholesterol Valproic Acid 21 L S.aureus Protein A PCR MRSA (PCR) POC Glucose 105 01/03/18 01/03/18 01/03/18 13:03 17:53 23:11 WBC RBC Hgb Hct MCV MCH MCHC RDW RDW Differential Plt Count MPV Immature Gran % (Auto) Neut % (Auto) Lymph % (Auto) [place] % (Auto) Eos % (Auto) Baso % (Auto) Absolute Neuts (auto) Absolute Lymphs (auto) Total Counted Sodium Potassium Chloride Carbon Dioxide Anion Gap BUN Creatinine Estim Creat Clear Calc Est GFR (MDRD) Af Amer Est GFR (MDRD) Non-Af BUN/Creatinine Ratio Glucose Calcium Phosphorus Magnesium Total Bilirubin AST ALT Alkaline Phosphatase Total Protein Albumin Globulin Albumin/Globulin Ratio Prealbumin Triglycerides Cholesterol LDL Cholesterol VLDL Cholesterol HDL Cholesterol Valproic Acid S.aureus Protein A PCR MRSA (PCR) POC Glucose 117 H 125 H 107 01/04/18 01/04/18 01/04/18 04:30 04:30 05:36 WBC 9.7 RBC 4.36 L Hgb 12.6 L Hct 40.6 MCV 93.1 MCH 28.9 MCHC 31.0 L RDW 15.1 H RDW Differential 50.1 H Plt Count 209 MPV 9.4 Immature Gran % (Auto) 0.300 Neut % (Auto) 62.2 Lymph % (Auto) 26.5 [place] % (Auto) 10.5 H Eos % (Auto) 0.4 Baso % (Auto) 0.1 Absolute Neuts (auto) 6.1 Absolute Lymphs (auto) 2.58 Total Counted Not Reportable Sodium 144 Potassium 4.2 Chloride 104 Carbon Dioxide 35.0 H Anion Gap 5 BUN 19 H Creatinine 0.53 L Estim Creat Clear Calc 158.24 Est GFR (MDRD) Af Amer 224 Est GFR (MDRD) Non-Af 185 BUN/Creatinine Ratio 36.0 H Glucose 89 Calcium 7.7 L Phosphorus Magnesium Total Bilirubin AST ALT Alkaline Phosphatase Total Protein Albumin Globulin Albumin/Globulin Ratio Prealbumin Triglycerides Cholesterol LDL Cholesterol VLDL Cholesterol HDL Cholesterol Valproic Acid S.aureus Protein A PCR MRSA (PCR) POC Glucose 96 Microbiology 01/03/18 09:30 Sputum, Induced/Lukens Gram Stain - Final 01/02/18 11:35 Tissue - Leg, Right Gram Stain - Final 01/02/18 11:35 Tissue - Leg, Right Wound Culture - Preliminary No growth-Final to follow 01/01/18 02:00 Blood Culture (Wb) - Right Hand Blood Culture - Preliminary No growth in 48 hours. 01/01/18 09:15 Sputum, Induced/Lukens Gram Stain - Final 01/01/18 09:15 Sputum, Induced/Lukens Respiratory Culture - Final 01/01/18 Unknown Wound Abcess - Groin Gram Stain - Final 01/01/18 Unknown Wound Abcess - Groin Wound Culture - Final Coag Negative Staph Coag Negative Staph#2 Gram positive zaid Clinical Impression(s) from Imaging Studies Chest X-Ray 12/31/17 20:02 IMPRESSION: Moderate cardiomegaly. No acute cardiopulmonary disease process is seen. Electronically Signed: Kiran Gorman MD at 20:26 EDT , Service support , Chest X-Ray 12/31/17 23:45 IMPRESSION: Interval placement of an NG tube and ET tube with the ET tube at 2.5 cm above the nitza. Cardiomegaly. No acute findings in the lungs Electronically Signed: Jayant Lewis at 0:28 EDT Tel , Service support , Chest CTA 01/01/18 08:05 IMPRESSION: There is no evidence of pulmonary embolism. Patchy infiltrates in the left upper lobe as well as in both lower lobes worse on the left side. Electronically Signed: Silvano Ulloa MD at 11:19 EDT Tel [phone], Service support , Pelvis CT 01/01/18 10:20 IMPRESSION: No perineal abscess is seen. Increased markings in the soft tissues overlying the lateral aspect of the right thigh. Electronically Signed: Silvano Ulloa MD at 12:30 EDT Tel [phone], Service support , Chest X-Ray 01/02/18 05:00 IMPRESSION: Cardiomegaly. An area of a single platelike atelectatic change in the left costophrenic angle. An ET tube is in place with the tip 3.7 cm above the nitza Electronically Signed: Jayant Lewis, at 6:37 EDT Tel , Service support , Chest X-Ray 01/02/18 12:51 IMPRESSION: Progressive infiltrate and/or atelectasis in the left lower lobe with blunting of left costophrenic angle. Increased markings in the left upper lobe. Follow-up is recommended. Electronically Signed: Silvano Ulloa MD at 13:43 EDT Tel [phone], Service support , Chest X-Ray 01/03/18 08:32 IMPRESSION: 1. No suspicious pneumonia. 2. Clearing of linear vertical atelectasis in the left upper lobe. 3. Decrease subsegmental atelectasis in the left lower lobe. Electronically Signed: Ishaan Duenas MD at 12:54 EDT , Service support , Medical Necessity - Tobacco Use Smoking Status: Current every day smoker Assessment/Plan All Active Problems Altered mental status (Acute) CAP (community acquired pneumonia) (Resolved) Acute on chronic respiratory failure with hypoxia and hypercapnia (Acute) COPD exacerbation (Acute) RECOMMENDATIONS: 1. Continue current supportive measures with mechanical ventilation. Continue current sedation regimen with plans to maintain a RASS of -1 to 1. 2. Continue scheduled bronchodilators and steroids. 3. Continue antibiotics. 4. Continue Lovenox and Pepcid for ICU prophylaxis 5. Continue local wound care, following surgical I&D of thigh abscess 6. Continue tube feeds 7. Continue sliding scale insulin coverage and bowel regimen 8. Agree with initiation of diuretic therapy, given volume status. IMPRESSIONS: 1. Acute on chronic combined respiratory failure Likely secondary to COPD with acute exacerbation secondary to suboptimally treated COPD and HCAP. We will plan to continue current supportive measures with mechanical ventilation. Continue to wean FiO2 and PEEP as tolerated. Continue antibiotics accordingly. In addition, scheduled bronchodilators and steroids will be continued. Tube feeds will be continued. Plan for daily paired spontaneous awakening and breathing trials. Continue propofol and fentanyl for sedation with a goal to maintain a RASS of -1 to 1. Given the patient's history of medical noncompliance, poor disease insight and recurrent hospital admissions, attempts to obtain court appointed emergency guardianship is currently being undertaken. Agree with initiation of diuretic therapy today, given overall net positive volume status. 2. Hypercarbic encephalopathy Improving with correction of his underlying acid-base disturbance. Continue supportive measures as noted above. 3. Severe obstructive sleep apnea, noncompliant with the use of nocturnal PAP therapy/alveolar hypoventilation secondary to obesity Once the patient is able to be liberated from mechanical ventilation, bilevel therapy can be initiated with naps and nightly per the recommendations of his previous polysomnogram, 17/11 cm of water + 3 L/min supplemental oxygen bleed. 4. Ongoing tobacco dependence Smoking cessation is strongly advisable. The patient can be offered nicotine replacement therapy while admitted to the hospital. 5. Medical noncompliance/bipolar disorder/hypertension/GERD/inadequate material resources Complicates care, management, recovery and prognosis. Social work and case management are following to assist with disposition. TIME: 38 minutes of critical care time, independent of procedures, was spent addressing the patient's acute on chronic combined respiratory failure, hypercarbic encephalopathy, severe obstructive sleep apnea, ongoing tobacco dependence, lower extremity soft tissue abscess, review of all data and collaboration with the care team. ([id number]) Code Visit 9xxxx: [id number] Critical care first hour
[2018-01-04] MEDS: predniSONE 20 MG Tablet 40 MG PO (07:55)
[2018-01-04] MEDS: Magnesium Hydroxide 30 ML UDC PO (08:56)
[2018-01-04] MEDS: Chlorhexidine 15 ML PO ×2 (09:55→21:29)
[2018-01-04] MEDS: Enoxaparin 40 MG/0.4 ML Syringe SC (09:56)
[2018-01-04] MEDS: Polyethylene Glycol 3350 17 GM PACKET GT ×2 (09:56→21:37)
[2018-01-04] MEDS: Furosemide 40 MG/4 ML Vial IV ×2 (09:56→18:25)
[2018-01-04] MEDS: Ibuprofen 100 MG/5 ML UDC 600 MG GT ×2 (09:57→21:37)
[2018-01-04] MEDS: Senna/Docusate Sodium 1 Tablet 2 TABLET GT ×2 (09:57→21:35)
[2018-01-04] MEDS: Famotidine 20 MG Tablet GT ×2 (09:58→21:35)
[2018-01-04] MEDS: RisperiDONE 1 MG Tablet NG ×2 (09:58→21:38)
[2018-01-04] MEDS: CHLORHEXIDINE GLUC 2% CLOTH 1 EACH TOWELETTE TOPICAL ×2 (10:02→21:34)
[2018-01-04 10:05] LABS: Vancomycin, Trough Level 19.9 ug/mL (5.0-15.0)
[2018-01-04] MEDS: guaiFENesin 10 ML UDC (200MG/10ML) GT ×2 (12:02→18:25)
[2018-01-05] VITALS (44 sets, daily range): BP systolic 94–165; BP diastolic 48–91; PULSE 55–117; RESP 14–24; TEMP 37.2–37.8; O2SAT 0–97
[2018-01-05] MEDS: guaiFENesin 10 ML UDC (200MG/10ML) GT ×4 (00:06→17:21)
[2018-01-05] MEDS: Propofol 10MG/Ml 1,000 MG/100 ML Bottle 4.635 MG CONT INF ×5 (00:06→21:21)
[2018-01-05] MEDS: Nystatin Powder 15gm Bottle 1 APPLIC TOPICAL ×4 (00:07→21:18)
[2018-01-05] MEDS: Ipratropium/Albuterol Sulfate 3 ML AMPUL.NEB INHALATION ×6 (02:11→23:38)
[2018-01-05 03:56] LABS: Anion Gap 6 (5-15); BUN 22 mg/dL (7-18); BUN/Creat Ratio 37.9 RATIO (10-20); Calcium,Total 7.6 mg/dL (8.5-10.1); Chloride 101 mmol/L (98-107); Creatinine, Serum 0.58 mg/dL (0.70-1.30); EST Glomerular Filtration Rate 166 mL/min (>60); Est Glom Filt Rate - Afr Amer 200 mL/min (>60); Glucose 91 mg/dL (74-106); Magnesium 2.3 mg/dL (1.6-2.6); Sodium Level 142 mmol/L (136-145)
[2018-01-05 04:17] LABS: Valproic Acid (Depakene) Level 32 ug/mL (50-100)
[2018-01-05 06:15] LABS: Allen Test POS; Base Excess 12 mmol/L (-2 to +2); Bicarbonate 36.3 mmol/L (22-26); Blood Gas Specimen Type ART; FI02 40; Mode CPAP PS; O2 Delivery Device Vent; PEEP 5; PO2 61 mmHG (75-100); PS 5; SITE L Radial; SO2 91 % (95-99); Time Given 605; Total Carbon Dioxide 38 mmol/L; pCO2 53.1 mmHg (35-45); pH 7.44 (7.35-7.45)
--- NOTE | 2018-01-05 07:04 | PN_ITS ---
Subjective: Patient did okay overnight. Patient is having a spontaneous breathing trial this morning and is doing well. Patient has tolerated tube feeds well. No seizure or aggressive activity has been noted overnight. General: Alert, Cooperative, No apparent distress, - - Appears older than stated age HEENT: Atraumatic, PERRLA, EOMI, Normocephalic, - - Slight scleral injection without icterus Oral: Moist Mucosa, No Gingival or Mucosal Lesions/ Ulcerations Neck: Supple, No JVD, No Nodes, Trachea Midline Lungs: No rhonchi, No wheeze, No rales, Diminished Cardiovascular: Regular rate, Regular Rhythm, Normal S1, Normal S2, No murmurs, No rub noted, No Gallop Abdomen: Bowel Sounds Present, Soft, Non Tender, Distended - Slightly, Obese Extremities: No clubbing, No cyanosis, Capillary Refill Less than 3 Seconds, Edema Skin: No rashes, Incision - Clean, dry and intact. Wound VAC in place Musculoskeletal: No Tenderness to Palpation of Joints or Extremities, No Muscle Wasting Lymphatic: No Cervical, Supraclavicular, or Inguinal Adenopathy Neurological: Cranial nerves II-XII grossly intact, Neuro grossly intact, Motor Exam 5/5 strength throughout Psych/Mental Status: Normal Affect, Appropriate Vital Signs Temp Pulse Resp BP Pulse Ox 37.2 C 86 23 H 127/66 H 92 01/05/18 06:00 01/05/18 06:32 01/05/18 06:32 01/05/18 06:00 01/05/18 06:32 Oxygen Flow Rate (L/min) 40 Oxygen Delivery Method CPAP Weight: 156 kg Body Mass Index (BMI) 58.3 Intake and Output for Last 24 Hours 01/03/18 01/04/18 01/05/18 23:59 23:59 23:59 Intake Total 5188.3 / 5188.3 4209 / 4209 1729 / 1729 Output Total 1556 / 1556 1575 / 1575 2415 / 2415 Balance 3632.3 / 3632.3 2634 / 2634 -686 / -686 Labs (Last 48 Hours) 01/03/18 01/03/18 01/03/18 10:00 13:03 17:53 WBC RBC Hgb Hct MCV MCH MCHC RDW RDW Differential Plt Count MPV Immature Gran % (Auto) Neut % (Auto) Lymph % (Auto) [place] % (Auto) Eos % (Auto) Baso % (Auto) Absolute Neuts (auto) Absolute Lymphs (auto) Total Counted Specimen Type Sample Site pH Bicarbonate Actual POC Total CO2 Base Excess O2 Saturation O2 % ABG pCO2 ABG pO2 Darnell Test O2 Delivery Device Vent Mode POC PEEP POC Pressure Suppt Blood Gas Notified Whom Blood Gas Notified Time Sodium Potassium Chloride Carbon Dioxide Anion Gap BUN Creatinine Estim Creat Clear Calc Est GFR (MDRD) Af Amer Est GFR (MDRD) Non-Af BUN/Creatinine Ratio Glucose Calcium Magnesium Vancomycin Trough Valproic Acid 21 L POC Glucose 117 H 125 H 01/03/18 01/04/18 01/04/18 23:11 04:30 04:30 WBC 9.7 RBC 4.36 L Hgb 12.6 L Hct 40.6 MCV 93.1 MCH 28.9 MCHC 31.0 L RDW 15.1 H RDW Differential 50.1 H Plt Count 209 MPV 9.4 Immature Gran % (Auto) 0.300 Neut % (Auto) 62.2 Lymph % (Auto) 26.5 [place] % (Auto) 10.5 H Eos % (Auto) 0.4 Baso % (Auto) 0.1 Absolute Neuts (auto) 6.1 Absolute Lymphs (auto) 2.58 Total Counted Not Reportable Specimen Type Sample Site pH Bicarbonate Actual POC Total CO2 Base Excess O2 Saturation O2 % ABG pCO2 ABG pO2 Darnell Test O2 Delivery Device Vent Mode POC PEEP POC Pressure Suppt Blood Gas Notified Whom Blood Gas Notified Time Sodium 144 Potassium 4.2 Chloride 104 Carbon Dioxide 35.0 H Anion Gap 5 BUN 19 H Creatinine 0.53 L Estim Creat Clear Calc 158.24 Est GFR (MDRD) Af Amer 224 Est GFR (MDRD) Non-Af 185 BUN/Creatinine Ratio 36.0 H Glucose 89 Calcium 7.7 L Magnesium Vancomycin Trough Valproic Acid POC Glucose 107 01/04/18 01/04/18 01/05/18 05:36 09:15 03:30 WBC RBC Hgb Hct MCV MCH MCHC RDW RDW Differential Plt Count MPV Immature Gran % (Auto) Neut % (Auto) Lymph % (Auto) [place] % (Auto) Eos % (Auto) Baso % (Auto) Absolute Neuts (auto) Absolute Lymphs (auto) Total Counted Specimen Type Sample Site pH Bicarbonate Actual POC Total CO2 Base Excess O2 Saturation O2 % ABG pCO2 ABG pO2 Darnell Test O2 Delivery Device Vent Mode POC PEEP POC Pressure Suppt Blood Gas Notified Whom Blood Gas Notified Time Sodium 142 Potassium 4.0 Chloride 101 Carbon Dioxide 35.0 H Anion Gap 6 BUN 22 H Creatinine 0.58 L Estim Creat Clear Calc 144.60 Est GFR (MDRD) Af Amer 200 Est GFR (MDRD) Non-Af 166 BUN/Creatinine Ratio 37.9 H Glucose 91 Calcium 7.6 L Magnesium 2.3 Vancomycin Trough 19.9 H Valproic Acid POC Glucose 96 01/05/18 01/05/18 03:30 06:09 WBC RBC Hgb Hct MCV MCH MCHC RDW RDW Differential Plt Count MPV Immature Gran % (Auto) Neut % (Auto) Lymph % (Auto) [place] % (Auto) Eos % (Auto) Baso % (Auto) Absolute Neuts (auto) Absolute Lymphs (auto) Total Counted Specimen Type ART Sample Site L Radial pH 7.44 Bicarbonate Actual 36.3 H POC Total CO2 38 Base Excess 12 H O2 Saturation 91 L O2 % 40 ABG pCO2 53.1 H ABG pO2 61 L Darnell Test POS O2 Delivery Device Vent Vent Mode CPAP PS POC PEEP 5 POC Pressure Suppt 5 Blood Gas Notified Whom ICU MD Blood Gas Notified Time 605 Sodium Potassium Chloride Carbon Dioxide Anion Gap BUN Creatinine Estim Creat Clear Calc Est GFR (MDRD) Af Amer Est GFR (MDRD) Non-Af BUN/Creatinine Ratio Glucose Calcium Magnesium Vancomycin Trough Valproic Acid 32 L POC Glucose Microbiology 01/03/18 09:30 Sputum, Induced/Lukens Gram Stain - Final 01/03/18 09:30 Sputum, Induced/Lukens Respiratory Culture - Preliminary 01/02/18 11:35 Tissue - Leg, Right Gram Stain - Final 01/02/18 11:35 Tissue - Leg, Right Wound Culture - Preliminary No growth-Final to follow 01/01/18 02:00 Blood Culture (Wb) - Right Hand Blood Culture - Preliminary No growth in 48 hours. 01/01/18 09:15 Sputum, Induced/Lukens Gram Stain - Final 01/01/18 09:15 Sputum, Induced/Lukens Respiratory Culture - Final 01/01/18 Unknown Wound Abcess - Groin Gram Stain - Final 01/01/18 Unknown Wound Abcess - Groin Wound Culture - Final Coag Negative Staph Coag Negative Staph#2 Gram positive zaid Medical Necessity - Tobacco Use Smoking Status: Current every day smoker Assessment/Plan All Active Problems Altered mental status (Acute) CAP (community acquired pneumonia) (Resolved) Acute on chronic respiratory failure with hypoxia and hypercapnia (Acute) COPD exacerbation (Acute) RECOMMENDATIONS: 1. Continue current supportive measures with mechanical ventilation. Continue current sedation regimen with plans to maintain a RASS of -1 to 1. 2. Continue scheduled bronchodilators and steroids. 3. Continue antibiotics. 4. Continue Lovenox and Pepcid for ICU prophylaxis 5. Continue local wound care, following surgical I&D of thigh abscess 6. Continue tube feeds 7. Continue sliding scale insulin coverage and bowel regimen 8. Agree with initiation of diuretic therapy, given volume status. IMPRESSIONS: 1. Acute on chronic combined respiratory failure Likely multifactorial in etiology. Patient has done well on spontaneous breathing trial. ABG after 1 hour did show some marginal oxygenation. Patient is being actively diuresed at this time, but was able to be moved to a PEEP of 5. Patient is receiving schedule bronchodilators and prednisone therapy. Tube feeds will be held. Patient currently in the process of being appointed for emergency guardianship. Will check with social work/case management later today on the process. Continue to diuresis as tolerated. 2. Hypercarbic encephalopathy Improving with correction of his underlying acid-base disturbance. Continue supportive measures as noted above. 3. Severe obstructive sleep apnea, noncompliant with the use of nocturnal PAP therapy/alveolar hypoventilation secondary to obesity Once the patient is able to be liberated from mechanical ventilation, bilevel therapy can be initiated with naps and nightly per the recommendations of his previous polysomnogram, 17/11 cm of water + 3 L/min supplemental oxygen bleed. Unclear if patient will be compliant with therapy. 4. Ongoing tobacco dependence Smoking cessation is strongly advisable. The patient can be offered nicotine replacement therapy while admitted to the hospital. 5. Medical noncompliance/bipolar disorder/hypertension/GERD/inadequate material resources Complicates care, management, recovery and prognosis. Social work and case management are following to assist with disposition. 6. Severe sepsis secondary to thigh abscess Thigh abscess has been drained. Wound VAC is in place. Patient has been hemodynamically stable. Patient is on appropriate antibiotics. TIME: 33 minutes of critical care time, independent of procedures, was spent addressing the patient's acute on chronic combined respiratory failure, hypercarbic encephalopathy, severe obstructive sleep apnea, ongoing tobacco dependence, lower extremity soft tissue abscess, review of all data and collaboration with the care team. (6 AM to 7 AM)
--- NOTE | 2018-01-05 07:56 | CASEMGMT ---
Addendum entered by Chayo Alfaro 01/05/18 12:24: Pt did say he is on disability, gets about $1000/month. Pt states he has been on disability for 8 months. ELIZABETH Rust, TECHNOLOGY INFUSION SPECIALIST Original Note: Addendum entered by Chayo Alfaro 01/05/18 11:42: Tevin Culver from [facility] called back. He states that they have their own guardianship program, however their two people who can be guardian are not able to at present, one due to medical leave and the other due to her working limited hours. Tevin states he called the court and spoke to Bryson from the court, and explained the situation. As per Bryson, they may consider emergency guardianship for pt. Tevin explains that if pt were to qualify for emergency guardianship, the person would not have to have gone through the guardianship training. Tevin suggested perhaps someone from the alevism would consider being an emergency guardian. That person, if willing to take on the pt, could become guardian of person for this pt if they were to go through the training. If unable or unwilling, the emergency guardianship would end in 1-2 months. If another individual became available to be guardian of person manager intermediate for the pt, that person could also step in and take over for the emergency guardian. As per Tevin, [facility] is interviewing for new individuals who can be guardians, and potentially are offering one of them a job. Therefore, a potential plan would be, if someone from the alevism, such as Reverend Boo is willing to take pt on as an emergency guardian, the pt may be able to be transferred to a more permanent guardian from [facility]. Tevin states he can call the alevism and speak Reverend Boo to see if he or someone else may be willing to do this. JUNE did also call Mya Rivera's office, and left a message inquiring if she would be willing to take on a guardianship case. SW will continue to follow, waiting for calls back now from attorneys Tevin Barber and Mya Rivera, and from Tevin Culver from [facility] to see if any of these may be realistic options for guardianship. SW will also speak w/pt once he is off the ventilator to see if he is agreeable to have SW send referral to [facility]. ELIZABETH Rust, TECHNOLOGY INFUSION SPECIALIST Original Note: Addendum entered by Chayo Alfaro 01/05/18 09:24: JUNE also spoke w/SW Kyra King as she has been involved with the volunteer guardianship program. She suggested some additional attorneys who may be willing to take on a guardianship case, and is going to email the coordinator of the volunteer guardianship program for other possible options. JUNE called [employer] Tevin Jean Baptiste, message left inquiring if he would be willing to take on another guardianship case. ELIZABETH Rust, TECHNOLOGY INFUSION SPECIALIST Original Note: JUNE called [facility], message left for Tevin Culver to inquire the name of the deputy county attorney they used to try to get guardianship last year. JUNE also called our risk officer and left a message inquiring about other attorneys in the area who may be willing to take on a guardianship case. JUNE will continue to follow. ELIZABETH Rust, ADINA
[2018-01-05] MEDS: predniSONE 20 MG Tablet 40 MG PO (08:44)
[2018-01-05] MEDS: Furosemide 40 MG/4 ML Vial IV ×3 (08:44→17:20)
[2018-01-05] MEDS: 0.9% NaCl Peripheral Flush Adult/Peds IV ×2 (08:44→11:15)
--- NOTE | 2018-01-05 09:24 | PCM.PROGNOTE ---
Patient Problems: Active and Suspected Problems Acute on chronic respiratory failure with hypoxia and hypercapnia (Acute) COPD exacerbation (Acute) Subjective: Chief complaint: Follow-up after admission for acute on chronic hypoxic and hypercapnic respiratory failure requiring mechanical ventilation, healthcare associated pneumonia and posterior right thigh large abscess status post incision, drainage and excisional debridement and status post wound VAC insertion. Patient seen and examined. No acute events overnight. He is alert, intubated, remains on mechanical ventilation. He had spontaneous breathing trial this morning and he did okay. He has been tolerating tube feeds. His vital signs are stable, afebrile. - Physical Exam General: Alert, Cooperative, - - Intubated, on mechanical ventilation. HEENT: Atraumatic, PERRLA, EOMI, Normocephalic Oral: Moist Mucosa, No Gingival or Mucosal Lesions/ Ulcerations Neck: Supple, No JVD, Negative Carotid Bruits, Trachea Midline, Thyroid Normal Size and Texture Lungs: Clear to auscultation, No wheeze, No rales, Diminished, Rhonchi Cardiovascular: Regular rate, Regular Rhythm, Normal S1, Normal S2, PMI Normal Abdomen: Bowel Sounds Present, Soft, Non Tender, Non-Distended, No Hepato-splenomegaly, Obese Extremities: No clubbing, No cyanosis, Edema - Nonpitting edema. Skin: No rashes, No breakdown Lymphatic: No Cervical, Supraclavicular, or Inguinal Adenopathy Neurological: Cranial nerves II-XII grossly intact, Motor Exam 5/5 strength throughout Psych/Mental Status: Normal Affect, Appropriate Vital Signs Temp Pulse Resp BP Pulse Ox 99.1 F 76 17 141/78 H 94 01/05/18 08:00 01/05/18 09:00 01/05/18 09:00 01/05/18 09:00 01/05/18 09:00 Oxygen Flow Rate (L/min) 40 Oxygen Delivery Method Mechanical Ventilator Weight: 343 lb 14.738 oz Body Mass Index (BMI) 58.3 Intake and Output for Last 24 Hours 01/03/18 01/04/18 01/05/18 23:59 23:59 23:59 Intake Total 5188.3 / 5188.3 4209 / 4209 1759 / 1759 Output Total 1556 / 1556 1575 / 1575 2415 / 2415 Balance 3632.3 / 3632.3 2634 / 2634 -156 / -656 Microbiology Past 72 Hours 01/03/18 09:30 Gram Stain - Final Sputum, Induced/Lukens Respiratory Culture - Preliminary 01/02/18 11:35 Gram Stain - Final Tissue - Leg, Right Wound Culture - Preliminary No growth-Final to follow 01/01/18 02:00 Blood Culture - Preliminary Blood Culture (Wb) - Right Hand No growth in 48 hours. 01/01/18 09:15 Gram Stain - Final Sputum, Induced/Lukens Respiratory Culture - Final 01/01/18 Unknown Gram Stain - Final Wound Abcess - Groin Wound Culture - Final Coag Negative Staph Coag Negative Staph#2 Gram positive zaid Laboratory Tests Past 24 Hrs 01/04/18 01/05/18 01/05/18 09:15 03:30 03:30 Specimen Type Sample Site pH Bicarbonate Actual POC Total CO2 Base Excess O2 Saturation O2 % ABG pCO2 ABG pO2 Darnell Test O2 Delivery Device Vent Mode POC PEEP POC Pressure Suppt Blood Gas Notified Whom Blood Gas Notified Time Sodium 142 Potassium 4.0 Chloride 101 Carbon Dioxide 35.0 H Anion Gap 6 BUN 22 H Creatinine 0.58 L Estim Creat Clear Calc 144.60 Est GFR (MDRD) Af Amer 200 Est GFR (MDRD) Non-Af 166 BUN/Creatinine Ratio 37.9 H Glucose 91 Calcium 7.6 L Magnesium 2.3 Vancomycin Trough 19.9 H Valproic Acid 32 L 01/05/18 06:09 Specimen Type ART Sample Site L Radial pH 7.44 Bicarbonate Actual 36.3 H POC Total CO2 38 Base Excess 12 H O2 Saturation 91 L O2 % 40 ABG pCO2 53.1 H ABG pO2 61 L Darnell Test POS O2 Delivery Device Vent Vent Mode CPAP PS POC PEEP 5 POC Pressure Suppt 5 Blood Gas Notified Whom ICU MD Blood Gas Notified Time 605 Sodium Potassium Chloride Carbon Dioxide Anion Gap BUN Creatinine Estim Creat Clear Calc Est GFR (MDRD) Af Amer Est GFR (MDRD) Non-Af BUN/Creatinine Ratio Glucose Calcium Magnesium Vancomycin Trough Valproic Acid Medical Necessity - Tobacco Use Smoking Status: Current every day smoker Tobacco Use: Cigarettes Assessment/Plan All Active Problems Altered mental status (Acute) Acute on chronic respiratory failure with hypoxia and hypercapnia (Acute) COPD exacerbation (Acute) This is a 37 years old male patient presented to the emergency room because of altered mental status, confusion and shortness of breath, found to have acute on chronic hypoxic and hypercarbic respiratory failure requiring mechanical ventilation, also found to have healthcare associated pneumonia and large posterior right thigh abscess status post incision and drainage as well as wound VAC insertion. #1 acute on chronic hypoxic and hypercapnic respiratory failure: Multifactorial secondary to COPD, pneumonia as well as history of obstructive sleep apnea and noncompliance. He is on mechanical ventilation, did well on spontaneous breathing trial this morning but he remained hypoxic, PO2 was 61 on ABG.. His vital signs are stable. He is on bronchodilators, steroids and IV antibiotics. Plan to continue same treatment, continue mechanical ventilation, dump truck operator is on the case. #2 healthcare associated pneumonia versus aspiration pneumonia: CTA chest reviewed. He is on IV cefepime. He has been afebrile, no leukocytosis. Blood culture showed no growth in 48 hours. Sputum culture revealed mixed normal respiratory rosetta. Pneumococcal and Legionella antigen were negative. Respiratory panel for viruses as well as nasal swab for influenza a and B were negative. Plan to continue IV antibiotics at this time. #3 acute COPD exacerbation: He is on bronchodilators, antibiotics and oral steroids and prednisone. He remained on mechanical ventilation, did well on spontaneous breathing at this morning. His ABG revealed PO2 of 61, PCO2 of 53, patient still hypoxic and his PCO2 is still slightly elevated. #4 right posterior thigh abscess: Status post incision, drainage and excisional debridement, status post wound VAC insertion. Post operative day 3. He is on IV cefepime. Wound culture revealed rare gram-negative staph, gram-positive zaid, final is pending. #5 acute encephalopathy/confusion: Likely due to metabolic encephalopathy secondary to hypercapnia as well as infection. Today, patient is alert but he is intubated. Not able to assess his orientation. #6 hypertension: His blood pressure has been under fair control. He is not on any antihypertensive medication at this time. It is not clear if the patient takes any antihypertensive medications at home. #7 pulmonary hypertension: Stable, no acute issues. #8 schizophrenia/bipolar disorder: He is on risperidone and Depakene. #9 GERD: Continue Pepcid. #10 obstructive sleep apnea: Reportedly, he is not compliant with BiPAP on home oxygen. #11 DVT prophylaxis: Subcu Lovenox. #12 GI prophylaxis: Continue Pepcid through [facility]. This note was generated with Dragon dictation software. It may contain incorrect words, spelling, and punctuation that were not noted in checking the note before signing. Code Visit Inpatient E&M: 07485 Subs Hosp L3
--- NOTE | 2018-01-05 10:51 | NURSING ---
wound VAC was applied on 01/04/18. plan to change dressing tomorrow since it was just applied yesterday. dressing is intact. Good seal noted at 150mmHg low continuous suction. Discussed plan with BURT Ramos.
[2018-01-05] MEDS: Chlorhexidine 15 ML PO ×2 (11:06→21:22)
[2018-01-05] MEDS: Enoxaparin 40 MG/0.4 ML Syringe SC (11:06)
[2018-01-05] MEDS: Polyethylene Glycol 3350 17 GM PACKET GT ×2 (11:07→21:17)
[2018-01-05] MEDS: Famotidine 20 MG Tablet GT ×2 (11:07→21:17)
[2018-01-05] MEDS: Ibuprofen 100 MG/5 ML UDC 600 MG GT ×2 (11:07→21:16)
[2018-01-05] MEDS: RisperiDONE 1 MG Tablet NG ×2 (11:08→21:17)
[2018-01-05] MEDS: Senna/Docusate Sodium 1 Tablet 2 TABLET GT ×2 (11:08→21:17)
--- NOTE | 2018-01-05 13:05 | CASEMGMT ---
Tevin Culver from [facility] called back. He states that they have their own guardianship program, however their two people who can be guardian are not able to at present, one due to medical leave and the other due to her working limited hours. Tevin states he called the court and spoke to Bryson from the court, and explained the situation. As per Bryson, they may consider emergency guardianship for pt. Tevin explains that if pt were to qualify for emergency guardianship, the person would not have to have gone through the guardianship training. Tevin suggested perhaps someone from the latter-day would consider being an emergency guardian. That person, if willing to take on the pt, could become guardian of person for this pt if they were to go through the training. If unable or unwilling, the emergency guardianship would end in 1-2 months. If another individual became available to be guardian of person rn long term care for the pt, that person could also step in and take over for the emergency guardian. As per Tevin, [facility] is interviewing for new individuals who can be guardians, and potentially are offering one of them a job. Therefore, a potential plan would be, if someone from the latter-day, such as Reverend Boo is willing to take pt on as an emergency guardian, the pt may be able to be transferred to a more permanent guardian from [facility]. Tevin states he can call the latter-day and speak Reverend Boo to see if he or someone else may be willing to do this. JUNE did also call Mya Rivera's office, and left a message inquiring if she would be willing to take on a guardianship case. JUNE will continue to follow, waiting for calls back now from attorneys Tevin Barber and Mya Rivera, and from Tevin Culver from [facility] to see if any of these may be realistic options for guardianship. SW will also speak w/gail once he is off the ventilator to see if he is agreeable to have SW send referral to [facility]. ELIZAEBTH Rust, BARREL INSPECTOR TIGHT Original Note: Addendum entered by Chayo Alfaro 01/05/18 09:24: JUNE also spoke w/SW Kyra King as she has been involved with the volunteer guardianship program. She suggested some additional attorneys who may be willing to take on a guardianship case, and is going to email the coordinator of the volunteer guardianship program for other possible options. SW called [employer] Tevin Markel, message left inquiring if he would be willing to take on another guardianship case. ELIZABETH Rust, BARREL INSPECTOR TIGHT Original Note: SW called [facility], message left for Tevin Culver to inquire the name of the prosecuting attorney they used to try to get guardianship last year. SW also called our business risk consultant and left a message inquiring about other attorneys in the area who may be willing to take on a guardianship case. JUNE will continue to follow. ELIZABETH Rust, BARREL INSPECTOR TIGHT
--- NOTE | 2018-01-05 13:38 | CASEMGMT ---
Addendum entered by Chayo Alfaro 01/05/18 15:42: The hospital will pay the initial fees associated w/filing for guardianship, Amy will call Tevin Jean Baptiste([phone]) directly to let him know. Once she speaks w/Tevin, she will let SW know either by phone or email, so SW can follow up w/Mr. Jean Baptiste and send him the statement of expert evaluation, to start the process with the court system. ELIZABETH Rust, ADINA Original Note: Addendum entered by Chayo Alfaro 01/05/18 14:48: SW called Tevin Culver, family caseworker from [facility], and left a message inquiring about answers to some of the questions the PAS/RR--as this may need completed should pt go to a [facility] from here. ELIZABETH Rust, ADINA Original Note: Tevin Jean Baptiste called this SW back, SW reviewed this pt's situation. He states he may be willing to take this pt on for guardianship if the court fees and his fees can be paid, as at this time he cannot take on any additional pro ariane work. SW spoke w/Amy in risk management here, she will let this SW know, or Mr. Jean Baptiste know directly, how these fees may be covered. SW will continue to follow. ELIZABETH Rust, ADINA
[2018-01-05] MEDS: Vital AF 1.2 Cal Liquid 1,000 ML 70 ML GT (14:47)
[2018-01-06] VITALS (31 sets, daily range): BP systolic 103–169; BP diastolic 51–106; PULSE 61–102; RESP 15–28; TEMP 37.1–38.1; O2SAT 89–95
[2018-01-06] MEDS: 0.9% NaCl Peripheral Flush Adult/Peds IV ×5 (00:42→21:13)
[2018-01-06] MEDS: guaiFENesin 10 ML UDC (200MG/10ML) GT ×2 (00:43→06:07)
[2018-01-06] MEDS: Propofol 10MG/Ml 1,000 MG/100 ML Bottle 4.635 MG CONT INF (01:07)
[2018-01-06] MEDS: Nystatin Powder 15gm Bottle 1 APPLIC TOPICAL ×4 (03:15→21:12)
[2018-01-06] MEDS: CHLORHEXIDINE GLUC 2% CLOTH 1 EACH TOWELETTE TOPICAL (03:51)
[2018-01-06 05:41] LABS: Absolute Lymphocyte Count 1.57 X10^3/ul (0.83-4.51); Basophil# 0.01 X10^3/uL; Basophil% 0.1 % (0-1); Eosinophil# 0.09 X10^3/uL; Eosinophils% 0.9 % (0-5); Hematocrit 41.5 % (40-54); Hemoglobin 12.8 g/dl (13.0-16.5); Lymphocyte # 1.57 X10^3/ul (4.0); Lymphocyte % 16.3 % (19-41); Mean Corp Hgb Conc 30.8 g/gl (32-36); Mean Corpuscular Hgb 28.6 pg (27.0-32.0); Mean Corpuscular Volume 92.6 fL (80-94); Mean Platelet Vol. 10.2 fl (6.2-12.0); Monocyte# 0.93 X10^3/uL; Monocyte% 9.6 % (0-10); Neutrophil # 7.03 X10^3/uL (2.7-7.7); Neutrophil % 72.9 % (47-70); Platelet Count 221 K/mm3 (150-450); RBC Distribution Width SD 50.1 fl (35.1-43.9); Red Blood Count 4.48 M/mm3 (4.6-6.2); White Blood Count 9.7 K/mm3 (4.4-11.0)
[2018-01-06 05:44] LABS: Anion Gap 7 (5-15); BUN 21 mg/dL (7-18); BUN/Creat Ratio 35.2 RATIO (10-20); Calcium,Total 8.1 mg/dL (8.5-10.1); Chloride 100 mmol/L (98-107); EST Glomerular Filtration Rate 161 mL/min (>60); Est Glom Filt Rate - Afr Amer 195 mL/min (>60); Estimated Creatinine Clearance 139.78 ml/min; Glucose 104 mg/dL (74-106); Potassium 3.4 mmol/L (3.5-5.1); Sodium Level 145 mmol/L (136-145)
[2018-01-06 05:57] LABS: POSITIVE COUNT NO; POSITIVE DIFFERENTIAL NO; POSITIVE MORPHOLOGY NO
[2018-01-06] MEDS: Ipratropium/Albuterol Sulfate 3 ML AMPUL.NEB INHALATION ×2 (06:38→19:05)
[2018-01-06 07:16] LABS: Base Excess 17 mmol/L (-2 to +2); Bicarbonate 40.2 mmol/L (22-26); Blood Gas Specimen Type ART; FI02 40; Mode A-C; O2 Delivery Device Vent; PEEP 5; PO2 62 mmHG (75-100); RR 16; SITE R Radial; SO2 92 % (95-99); Time Given 709; Total Carbon Dioxide 42 mmol/L; Vt 500; pCO2 54.1 mmHg (35-45); pH 7.48 (7.35-7.45)
--- NOTE | 2018-01-06 07:29 | PCM.PN.INT ---
Subjective: Patient did well overnight. Patient did not get extubated yesterday secondary to marginal oxygenation and concerns for refusal of BiPAP on extubation. Patient did receive aggressive diuresis and was -6 L by this morning. Patient continues to deny any dyspnea or chest pain. Patient has tolerated tube feeds. Patient did receive potassium supplementation prior to extubation. General: Alert, Cooperative, No apparent distress, - - RASS 0. Morbidly obese. Follows commands. HEENT: Atraumatic, PERRLA, EOMI, Normocephalic, - - No scleral icterus or injection noted. Oral: Moist Mucosa, No Gingival or Mucosal Lesions/ Ulcerations Neck: Supple, No JVD, No Nodes, Trachea Midline Lungs: No rhonchi, No wheeze, No rales, Diminished Cardiovascular: Regular rate, Regular Rhythm, Normal S1, Normal S2, No murmurs, No rub noted, No Gallop Abdomen: Bowel Sounds Present, Soft, Non Tender, Non-Distended, Obese Extremities: No clubbing, No cyanosis, Edema - Improved from previous Skin: - - No significant change compared to previous Musculoskeletal: Tenderness - Incision site only Lymphatic: No Cervical, Supraclavicular, or Inguinal Adenopathy Neurological: Cranial nerves II-XII grossly intact, Neuro grossly intact, Motor Exam 5/5 strength throughout Psych/Mental Status: Normal Affect, Appropriate Vital Signs Temp Pulse Resp BP Pulse Ox 37.1 C 94 18 154/80 H 89 01/06/18 07:00 01/06/18 07:00 01/06/18 07:00 01/06/18 06:00 01/06/18 07:00 Oxygen Flow Rate (L/min) 40 Oxygen Delivery Method Mechanical Ventilator Weight: 151 kg Body Mass Index (BMI) 58.3 Intake and Output for Last 24 Hours 01/04/18 01/05/18 01/06/18 23:59 23:59 23:59 Intake Total 4209 / 4209 3904 / 3904 1104.9 / 1104.9 Output Total 1575 / 1575 9590 / 9590 200 / 200 Balance 2634 / 2634 -5686 / -5686 904.9 / 904.9 Labs (Last 48 Hours) 01/04/18 01/05/18 01/05/18 09:15 03:30 03:30 WBC RBC Hgb Hct MCV MCH MCHC RDW RDW Differential Plt Count MPV Immature Gran % (Auto) Neut % (Auto) Lymph % (Auto) Randall % (Auto) Eos % (Auto) Baso % (Auto) Absolute Neuts (auto) Absolute Lymphs (auto) Total Counted Specimen Type Sample Site pH Bicarbonate Actual POC Total CO2 Base Excess O2 Saturation O2 % ABG pCO2 ABG pO2 Darnell Test Respiration Rate O2 Delivery Device Vent Mode Tidal Volume POC PEEP POC Pressure Suppt Blood Gas Notified Whom Blood Gas Notified Time Sodium 142 Potassium 4.0 Chloride 101 Carbon Dioxide 35.0 H Anion Gap 6 BUN 22 H Creatinine 0.58 L Estim Creat Clear Calc 144.60 Est GFR (MDRD) Af Amer 200 Est GFR (MDRD) Non-Af 166 BUN/Creatinine Ratio 37.9 H Glucose 91 Calcium 7.6 L Magnesium 2.3 Vancomycin Trough 19.9 H Valproic Acid 32 L 01/05/18 01/06/18 01/06/18 06:09 05:05 05:05 WBC 9.7 RBC 4.48 L Hgb 12.8 L Hct 41.5 MCV 92.6 MCH 28.6 MCHC 30.8 L RDW 15.0 H RDW Differential 50.1 H Plt Count 221 MPV 10.2 Immature Gran % (Auto) 0.200 Neut % (Auto) 72.9 H Lymph % (Auto) 16.3 L Randall % (Auto) 9.6 Eos % (Auto) 0.9 Baso % (Auto) 0.1 Absolute Neuts (auto) 7.0 Absolute Lymphs (auto) 1.57 Total Counted Not Reportable Specimen Type ART Sample Site L Radial pH 7.44 Bicarbonate Actual 36.3 H POC Total CO2 38 Base Excess 12 H O2 Saturation 91 L O2 % 40 ABG pCO2 53.1 H ABG pO2 61 L Darnell Test POS Respiration Rate O2 Delivery Device Vent Vent Mode CPAP PS Tidal Volume POC PEEP 5 POC Pressure Suppt 5 Blood Gas Notified Whom ICU MD Blood Gas Notified Time 605 Sodium 145 Potassium 3.4 L Chloride 100 Carbon Dioxide 38.0 H Anion Gap 7 BUN 21 H Creatinine 0.60 L Estim Creat Clear Calc 139.78 Est GFR (MDRD) Af Amer 195 Est GFR (MDRD) Non-Af 161 BUN/Creatinine Ratio 35.2 H Glucose 104 Calcium 8.1 L Magnesium Vancomycin Trough Valproic Acid 01/06/18 07:09 WBC RBC Hgb Hct MCV MCH MCHC RDW RDW Differential Plt Count MPV Immature Gran % (Auto) Neut % (Auto) Lymph % (Auto) Randall % (Auto) Eos % (Auto) Baso % (Auto) Absolute Neuts (auto) Absolute Lymphs (auto) Total Counted Specimen Type ART Sample Site R Radial pH 7.48 H Bicarbonate Actual 40.2 H POC Total CO2 42 Base Excess 17 H O2 Saturation 92 L O2 % 40 ABG pCO2 54.1 H ABG pO2 62 L Darnell Test Respiration Rate 16 O2 Delivery Device Vent Vent Mode A-C Tidal Volume 500 POC PEEP 5 POC Pressure Suppt Blood Gas Notified Whom ICU MD Blood Gas Notified Time 709 Sodium Potassium Chloride Carbon Dioxide Anion Gap BUN Creatinine Estim Creat Clear Calc Est GFR (MDRD) Af Amer Est GFR (MDRD) Non-Af BUN/Creatinine Ratio Glucose Calcium Magnesium Vancomycin Trough Valproic Acid Microbiology 01/03/18 09:30 Sputum, Induced/Lukens Gram Stain - Final 01/03/18 09:30 Sputum, Induced/Lukens Respiratory Culture - Final 01/02/18 11:35 Tissue - Leg, Right Gram Stain - Final 01/02/18 11:35 Tissue - Leg, Right Wound Culture - Final No growth aerobically. 01/02/18 11:35 Tissue - Leg, Right Anaerobic Culture - Preliminary No growth in 48 hours. Medical Necessity - Tobacco Use Smoking Status: Current every day smoker Tobacco Use: Cigarettes Assessment/Plan All Active Problems Altered mental status (Acute) Acute on chronic respiratory failure with hypoxia and hypercapnia (Acute) COPD exacerbation (Acute) RECOMMENDATIONS: 1. Extubate to Ventimask 2. Continue scheduled bronchodilators and wean steroids over 12-14 days. 3. Continue antibiotics. 4. Continue Lovenox and Pepcid for ICU prophylaxis 5. Continue local wound care, following surgical I&D of thigh abscess 6. Wean oxygen as tolerated 7. Continue sliding scale insulin coverage and bowel regimen 8. Bedside swallow evaluation. IMPRESSIONS: 1. Acute on chronic combined respiratory failure Likely multifactorial in etiology. Patient has done well on spontaneous breathing trial. ABG after 1 hour did show some marginal oxygenation. Patient is being actively diuresed at this time, but was able to be moved to a PEEP of 5. Patient is receiving schedule bronchodilators and prednisone therapy. Will continue with diuretic therapy, but will proceed with extubation. Cannot exclude the need for positive pressure, especially with sleep. 2. Hypercarbic encephalopathy Improving with correction of his underlying acid-base disturbance. Continue supportive measures as noted above. 3. Severe obstructive sleep apnea, noncompliant with the use of nocturnal PAP therapy/alveolar hypoventilation secondary to obesity Once the patient is able to be liberated from mechanical ventilation, bilevel therapy can be initiated with naps and nightly per the recommendations of his previous polysomnogram, 17/11 cm of water + 3 L/min supplemental oxygen bleed. Unclear if patient will be compliant with therapy. 4. Ongoing tobacco dependence Smoking cessation is strongly advisable. The patient can be offered nicotine replacement therapy while admitted to the hospital. 5. Medical noncompliance/bipolar disorder/hypertension/GERD/inadequate material resources Complicates care, management, recovery and prognosis. Social work and case management are following to assist with disposition. 6. Severe sepsis secondary to thigh abscess Thigh abscess has been drained. Wound VAC is in place. Patient has been hemodynamically stable. Patient is on appropriate antibiotics. TIME: 38 minutes of critical care time, independent of procedures, was spent addressing the patient's acute on chronic combined respiratory failure, hypercarbic encephalopathy, severe obstructive sleep apnea, ongoing tobacco dependence, lower extremity soft tissue abscess, review of all data and collaboration with the care team. (5:30 AM to 7:30 AM) Code Visit 9xxxx: [id number] Critical care first hour
[2018-01-06] MEDS: predniSONE 20 MG Tablet 40 MG PO (09:39)
[2018-01-06] MEDS: Famotidine 20 MG Tablet GT (09:39)
[2018-01-06] MEDS: Furosemide 40 MG/4 ML Vial IV ×2 (09:40→17:11)
[2018-01-06] MEDS: RisperiDONE 1 MG Tablet NG (09:40)
[2018-01-06] MEDS: Enoxaparin 40 MG/0.4 ML Syringe SC (09:40)
--- NOTE | 2018-01-06 09:56 | PN_ITS ---
Patient Problems: Active and Suspected Problems Acute on chronic respiratory failure with hypoxia and hypercapnia (Acute) COPD exacerbation (Acute) Subjective: Chief complaint: Follow-up after admission for acute on chronic hypoxic and hypercapnic respiratory failure requiring mechanical ventilation, healthcare associated pneumonia and posterior right thigh large abscess status post incision, drainage and excisional debridement and status post wound VAC insertion. Patient seen and examined. He was extubated this morning. He remained on oxygen at 4 L. He complained of generalized body aches. No specific complaints. Vital signs are stable. - Physical Exam General: Alert, Cooperative HEENT: Atraumatic, PERRLA, EOMI, Normocephalic Oral: Moist Mucosa, No Gingival or Mucosal Lesions/ Ulcerations Neck: Supple, No JVD, Negative Carotid Bruits, Trachea Midline, Thyroid Normal Size and Texture Lungs: Clear to auscultation, No rhonchi, No wheeze, No rales, Diminished Cardiovascular: Regular rate, Regular Rhythm, Normal S1, Normal S2, PMI Normal Abdomen: Bowel Sounds Present, Soft, Non Tender, Non-Distended, No Hepato- splenomegaly, Obese Extremities: No clubbing, No cyanosis, Edema - Trace edema. Skin: No rashes, No breakdown Lymphatic: No Cervical, Supraclavicular, or Inguinal Adenopathy Neurological: Cranial nerves II-XII grossly intact, Motor Exam 5/5 strength throughout Psych/Mental Status: Flat Affect Vital Signs Temp Pulse Resp BP Pulse Ox 99.4 F H 88 19 H 154/77 H 92 01/06/18 09:00 01/06/18 09:00 01/06/18 09:00 01/06/18 09:00 01/06/18 09:00 Oxygen Flow Rate (L/min) 4 Oxygen Delivery Method Nasal Cannula Weight: 332 lb 14.368 oz Body Mass Index (BMI) 58.3 Intake and Output for Last 24 Hours 01/04/18 01/05/18 01/06/18 23:59 23:59 23:59 Intake Total 4209 / 4209 3904 / 3904 1104.9 / 1104.9 Output Total 1575 / 1575 9590 / 9590 200 / 200 Balance 2634 / 2634 -5686 / -5686 904.9 / 904.9 Microbiology Past 72 Hours 01/01/18 02:00 Blood Culture - Final Blood Culture (Wb) - Right Hand No growth in 5 days. 01/03/18 09:30 Gram Stain - Final Sputum, Induced/Lukens Respiratory Culture - Final 01/02/18 11:35 Gram Stain - Final Tissue - Leg, Right Wound Culture - Final No growth aerobically. Anaerobic Culture - Preliminary No growth in 48 hours. 01/01/18 09:15 Gram Stain - Final Sputum, Induced/Lukens Respiratory Culture - Final 01/01/18 Unknown Gram Stain - Final Wound Abcess - Groin Wound Culture - Final Coag Negative Staph Coag Negative Staph#2 Gram positive zaid Laboratory Tests Past 24 Hrs 01/06/18 01/06/18 01/06/18 05:05 05:05 07:09 WBC 9.7 RBC 4.48 L Hgb 12.8 L Hct 41.5 MCV 92.6 MCH 28.6 MCHC 30.8 L RDW 15.0 H RDW Differential 50.1 H Plt Count 221 MPV 10.2 Immature Gran % (Auto) 0.200 Neut % (Auto) 72.9 H Lymph % (Auto) 16.3 L [place] % (Auto) 9.6 Eos % (Auto) 0.9 Baso % (Auto) 0.1 Absolute Neuts (auto) 7.0 Absolute Lymphs (auto) 1.57 Total Counted Not Reportable Specimen Type ART Sample Site R Radial pH 7.48 H Bicarbonate Actual 40.2 H POC Total CO2 42 Base Excess 17 H O2 Saturation 92 L O2 % 40 ABG pCO2 54.1 H ABG pO2 62 L Respiration Rate 16 O2 Delivery Device Vent Vent Mode A-C Tidal Volume 500 POC PEEP 5 Blood Gas Notified Whom ICU Blood Gas Notified Time 709 Sodium 145 Potassium 3.4 L Chloride 100 Carbon Dioxide 38.0 H Anion Gap 7 BUN 21 H Creatinine 0.60 L Estim Creat Clear Calc 139.78 Est GFR (MDRD) Af Amer 195 Est GFR (MDRD) Non-Af 161 BUN/Creatinine Ratio 35.2 H Glucose 104 Calcium 8.1 L Medical Necessity - Tobacco Use Smoking Status: Current every day smoker Tobacco Use: Cigarettes Assessment/Plan All Active Problems Altered mental status (Acute) Acute on chronic respiratory failure with hypoxia and hypercapnia (Acute) COPD exacerbation (Acute) This is a 37 years old male patient presented to the emergency room because of altered mental status, confusion and shortness of breath, found to have acute on chronic hypoxic and hypercarbic respiratory failure requiring mechanical ventilation, also found to have healthcare associated pneumonia and large posterior right thigh abscess status post incision and drainage as well as wound VAC insertion. #1 acute on chronic hypoxic and hypercapnic respiratory failure: Status post extubation, pulse ox is maintained on 4 L. Clinically stable, vital signs are stable. It is multifactorial secondary to COPD, pneumonia as well as history of obstructive sleep apnea and noncompliance. Plan to continue oxygen medication, diuresis, probable transfer to PCU later today or tomorrow. #2 healthcare associated pneumonia versus aspiration pneumonia: Remained on IV cefepime. He has been afebrile, no leukocytosis. Blood culture showed no growth in 48 hours. Sputum culture revealed mixed normal respiratory rosetta. Pneumococcal and Legionella antigen were negative. Respiratory panel for viruses as well as nasal swab for influenza a and B were negative. Plan to continue IV antibiotics at this time. #3 acute COPD exacerbation: He is on bronchodilators, antibiotics and oral steroids and prednisone. Status post extubation. He is maintaining his pulse ox at 4 L. Plan as above. #4 right posterior thigh abscess: Status post incision, drainage and excisional debridement, status post wound VAC insertion. Post operative day 4. He is on IV cefepime. Wound culture revealed rare gram-negative staph, gram-positive zaid. #5 acute encephalopathy/confusion: Likely due to metabolic encephalopathy secondary to hypercapnia as well as infection. Today, patient is awake and alert. #6 hypertension: Blood pressure stable. At this time, he is not on any antihypertensive medications. #7 pulmonary hypertension: Stable, no acute issues. #8 schizophrenia/bipolar disorder: He is on risperidone and Depakene. #9 GERD: Continue Pepcid. #10 obstructive sleep apnea: Reportedly, he is not compliant with BiPAP and home oxygen. #11 DVT prophylaxis: Subcu Lovenox. This note was generated with [employer] dictation software. It may contain incorrect words, spelling, and punctuation that were not noted in checking the note before signing. Code Visit Inpatient E&M: 26148 Subs Hosp L2
--- NOTE | 2018-01-06 10:36 | CASEMGMT ---
Social Work SW attended rounds this morning. Pt has been extubated and is sitting up in a chair and able to converse. SW met with pt after rounds to discuss discharge plan. SW reviewed with pt medical issues and need for SNF. Pt states that he knows he has to go to a facility. SW discussed [facility] with pt which is the facility that pt originally agreed upon during his last admission. Pt is agreeable at this time for SW to make referral to [facility]. VM left with Greer at [facility] and referral faxed. SW will await return call from [facility] for determination of acceptance. OLAF Pimentel
--- NOTE | 2018-01-06 10:51 | NURSING ---
Wound vac change in progress
--- NOTE | 2018-01-06 12:03 | CASEMGMT ---
Addendum entered by Daniela Santoyo 01/06/18 16:28: Spoke with Risk Heavenly Reyes. Uzair Jean Baptiste, trial attorney will be in tomorrow at 9:15 to meet with pt regarding guardianship issues. OLAF Pimentel Original Note: Social Work Return call from Tevin Culver at [facility]. PassRR completed. Tevin states she has spoke with Reverend Boo and he is considering being pt guardian. Rev Boo needs time to consider this possibility. Risk Heavenly Reyes notified. Will continue to follow. OLAF Pimentel
--- NOTE | 2018-01-06 12:50 | NURSING ---
wound photo: right upper medial thigh
[2018-01-06] MEDS: RisperiDONE 1 MG Tablet PO (21:05)
[2018-01-06] MEDS: Famotidine 20 MG Tablet PO (21:05)
[2018-01-07] VITALS (19 sets, daily range): BP systolic 125–156; BP diastolic 61–87; PULSE 78–96; RESP 16–23; TEMP 36.8–37.3; O2SAT 92–96
[2018-01-07] MEDS: Nystatin Powder 15gm Bottle 1 APPLIC TOPICAL ×4 (03:35→22:53)
[2018-01-07] MEDS: CHLORHEXIDINE GLUC 2% CLOTH 1 EACH TOWELETTE TOPICAL (03:36)
[2018-01-07 04:54] LABS: Anion Gap 6 (5-15); BUN 15 mg/dL (7-18); BUN/Creat Ratio 20.3 RATIO (10-20); Calcium,Total 8.3 mg/dL (8.5-10.1); Chloride 97 mmol/L (98-107); Creatinine, Serum 0.74 mg/dL (0.70-1.30); EST Glomerular Filtration Rate 126 mL/min (>60); Est Glom Filt Rate - Afr Amer 152 mL/min (>60); Estimated Creatinine Clearance 113.33 ml/min; Glucose 158 mg/dL (74-106); Potassium 3.4 mmol/L (3.5-5.1); Sodium Level 139 mmol/L (136-145)
[2018-01-07] MEDS: 0.9% NaCl Peripheral Flush Adult/Peds IV ×3 (06:17→22:57)
--- NOTE | 2018-01-07 06:24 | PCM.PN.INT ---
Subjective: Patient did well overnight. Nursing reports very little sleep overnight, but is tolerating nasal cannula without difficulty. Case catheter has been removed. Patient reports mild dysuria, but is voiding appropriately. General: Alert, Oriented x3, Cooperative, No apparent distress, - - Morbidly obese. Speaking in full sentences. HEENT: Atraumatic, PERRLA, EOMI, Normocephalic, - - No scleral icterus or injection noted. Oral: Moist Mucosa, No Gingival or Mucosal Lesions/ Ulcerations Neck: Supple, No JVD, No Nodes, Trachea Midline Lungs: No rhonchi, No wheeze, No rales, Diminished, - - Symmetric expansion. No dullness to percussion. Cardiovascular: Regular rate, Regular Rhythm, Normal S1, Normal S2, No murmurs, No rub noted, No Gallop Abdomen: Bowel Sounds Present, Soft, Non Tender, Non-Distended, Obese Extremities: No clubbing, No cyanosis, Edema - Improved Skin: - - Grossly unchanged compared to previous. Wound VAC in place. Musculoskeletal: No Tenderness to Palpation of Joints or Extremities, No Muscle Wasting Lymphatic: No Cervical, Supraclavicular, or Inguinal Adenopathy Neurological: Cranial nerves II-XII grossly intact, Neuro grossly intact, Motor Exam 5/5 strength throughout Psych/Mental Status: Appropriate, Restless Vital Signs Temp Pulse Resp BP Pulse Ox 36.8 C 88 16 146/85 H 93 01/07/18 04:00 01/07/18 06:00 01/07/18 06:00 01/07/18 06:00 01/07/18 06:00 Oxygen Flow Rate (L/min) 2 Oxygen Delivery Method Nasal Cannula Weight: 149.8 kg Body Mass Index (BMI) 58.3 Intake and Output for Last 24 Hours 01/05/18 01/06/18 01/07/18 23:59 23:59 23:59 Intake Total 3904 / 3904 2944.9 / 2944.9 650 / 650 Output Total 9590 / 9590 4200 / 4200 Balance -5686 / -5686 -1255.1 / -1255.1 650 / 650 Labs (Last 48 Hours) 01/06/18 01/06/18 01/06/18 05:05 05:05 07:09 WBC 9.7 RBC 4.48 L Hgb 12.8 L Hct 41.5 MCV 92.6 MCH 28.6 MCHC 30.8 L RDW 15.0 H RDW Differential 50.1 H Plt Count 221 MPV 10.2 Immature Gran % (Auto) 0.200 Neut % (Auto) 72.9 H Lymph % (Auto) 16.3 L [place] % (Auto) 9.6 Eos % (Auto) 0.9 Baso % (Auto) 0.1 Absolute Neuts (auto) 7.0 Absolute Lymphs (auto) 1.57 Total Counted Not Reportable Specimen Type ART Sample Site R Radial pH 7.48 H Bicarbonate Actual 40.2 H POC Total CO2 42 Base Excess 17 H O2 Saturation 92 L O2 % 40 ABG pCO2 54.1 H ABG pO2 62 L Respiration Rate 16 O2 Delivery Device Vent Vent Mode A-C Tidal Volume 500 POC PEEP 5 Blood Gas Notified Whom ICU MD Blood Gas Notified Time 709 Sodium 145 Potassium 3.4 L Chloride 100 Carbon Dioxide 38.0 H Anion Gap 7 BUN 21 H Creatinine 0.60 L Estim Creat Clear Calc 139.78 Est GFR (MDRD) Af Amer 195 Est GFR (MDRD) Non-Af 161 BUN/Creatinine Ratio 35.2 H Glucose 104 Calcium 8.1 L 01/07/18 04:20 WBC RBC Hgb Hct MCV MCH MCHC RDW RDW Differential Plt Count MPV Immature Gran % (Auto) Neut % (Auto) Lymph % (Auto) [place] % (Auto) Eos % (Auto) Baso % (Auto) Absolute Neuts (auto) Absolute Lymphs (auto) Total Counted Specimen Type Sample Site pH Bicarbonate Actual POC Total CO2 Base Excess O2 Saturation O2 % ABG pCO2 ABG pO2 Respiration Rate O2 Delivery Device Vent Mode Tidal Volume POC PEEP Blood Gas Notified Whom Blood Gas Notified Time Sodium 139 Potassium 3.4 L Chloride 97 L Carbon Dioxide 36.0 H Anion Gap 6 BUN 15 Creatinine 0.74 Estim Creat Clear Calc 113.33 Est GFR (MDRD) Af Amer 152 Est GFR (MDRD) Non-Af 126 BUN/Creatinine Ratio 20.3 H Glucose 158 H Calcium 8.3 L Microbiology 01/01/18 02:00 Blood Culture (Wb) - Right Hand Blood Culture - Final No growth in 5 days. 01/03/18 09:30 Sputum, Induced/Lukens Gram Stain - Final 01/03/18 09:30 Sputum, Induced/Lukens Respiratory Culture - Final 01/02/18 11:35 Tissue - Leg, Right Gram Stain - Final 01/02/18 11:35 Tissue - Leg, Right Wound Culture - Final No growth aerobically. 01/02/18 11:35 Tissue - Leg, Right Anaerobic Culture - Preliminary No growth in 48 hours. Medical Necessity - Tobacco Use Smoking Status: Current every day smoker Tobacco Use: Cigarettes Assessment/Plan All Active Problems Altered mental status (Acute) Acute on chronic respiratory failure with hypoxia and hypercapnia (Acute) COPD exacerbation (Acute) RECOMMENDATIONS: 1. Walking oximetry prior to discharge 2. Continue scheduled bronchodilators and wean steroids over 12-14 days. 3. Continue antibiotics per primary service. 4. Continue Lovenox and Pepcid for ICU prophylaxis 5. Continue local wound care, following surgical I&D of thigh abscess 6. Transition to p.o. Lasix, potassium supplementation by mouth 7. Continue sliding scale insulin coverage and bowel regimen 8. Okay to leave the intensive care unit from my perspective IMPRESSIONS: 1. Acute on chronic combined respiratory failure Likely multifactorial in etiology. Patient has done well following extubation. Patient is receiving schedule bronchodilators and prednisone therapy. Will continue with diuretic therapy, but will transition to p.o. Cannot exclude the need for positive pressure, especially with sleep. 2. Hypercarbic encephalopathy Improving with correction of his underlying acid-base disturbance. Continue supportive measures as noted above. Patient may be in a manic phase at this time secondary to steroid therapy. Potentially decrease steroids tomorrow. 3. Severe obstructive sleep apnea, noncompliant with the use of nocturnal PAP therapy/alveolar hypoventilation secondary to obesity Bilevel therapy can be initiated with naps and nightly per the recommendations of his previous polysomnogram, 17/11 cm of water + 3 L/min supplemental oxygen bleed. Unclear if patient will be compliant with therapy. 4. Ongoing tobacco dependence Smoking cessation is strongly advisable. The patient can be offered nicotine replacement therapy while admitted to the hospital. 5. Medical noncompliance/bipolar disorder/hypertension/GERD/inadequate material resources Complicates care, management, recovery and prognosis. Social work and case management are following to assist with disposition. 6. Severe sepsis secondary to thigh abscess (present on admission) Thigh abscess has been drained. Wound VAC is in place. Patient has been hemodynamically stable. Patient is on appropriate antibiotics. Defer to primary service on length of antibiotic therapy. Code Visit Inpatient E&M: 53541 Subs Hosp L3
[2018-01-07] MEDS: Ipratropium/Albuterol Sulfate 3 ML AMPUL.NEB INHALATION ×2 (06:47→19:36)
--- NOTE | 2018-01-07 08:01 | PCM.PROGNOTE ---
Patient Problems: Active and Suspected Problems Acute on chronic respiratory failure with hypoxia and hypercapnia (Acute) COPD exacerbation (Acute) Subjective: Chief complaint: Follow-up after admission for acute on chronic hypoxic and hypercapnic respiratory failure requiring mechanical ventilation, healthcare associated pneumonia and posterior right thigh large abscess status post incision, drainage and excisional debridement and status post wound VAC insertion. Patient seen and examined. No acute events overnight. Nursing staff reports that patient did not sleep at all overnight. His respiratory status has been stable, tolerating oxygen by nasal cannula. He denied any significant complaints. His vital signs are stable. - Physical Exam General: Alert, Cooperative, No apparent distress HEENT: Atraumatic, PERRLA, EOMI, Normocephalic Oral: Moist Mucosa, No Gingival or Mucosal Lesions/ Ulcerations Neck: Supple, No JVD, Negative Carotid Bruits, Trachea Midline, Thyroid Normal Size and Texture Lungs: Clear to auscultation, No rhonchi, No wheeze, No rales, Diminished Cardiovascular: Regular rate, Regular Rhythm, Normal S1, Normal S2, PMI Normal Abdomen: Bowel Sounds Present, Soft, Non Tender, Non-Distended, No Hepato-splenomegaly, Obese Extremities: No clubbing, No cyanosis, Edema - Trace edema. Skin: No rashes, Ulcer/ Wound Lymphatic: No Cervical, Supraclavicular, or Inguinal Adenopathy Neurological: Cranial nerves II-XII grossly intact, Neuro grossly intact Psych/Mental Status: Normal Affect, Appropriate Vital Signs Temp Pulse Resp BP Pulse Ox 98.2 F 81 18 146/85 H 96 01/07/18 04:00 01/07/18 07:52 01/07/18 06:47 01/07/18 06:00 01/07/18 06:47 Oxygen Flow Rate (L/min) 2 Oxygen Delivery Method Nasal Cannula Weight: 330 lb 4.039 oz Body Mass Index (BMI) 58.3 Intake and Output for Last 24 Hours 01/05/18 01/06/18 01/07/18 23:59 23:59 23:59 Intake Total 3904 / 3904 2944.9 / 2944.9 650 / 650 Output Total 9590 / 9590 4200 / 4200 Balance -5686 / -5686 -1255.1 / -1255.1 650 / 650 Microbiology Past 72 Hours 01/01/18 02:00 Blood Culture - Final Blood Culture (Wb) - Right Hand No growth in 5 days. 01/03/18 09:30 Gram Stain - Final Sputum, Induced/Lukens Respiratory Culture - Final 01/02/18 11:35 Gram Stain - Final Tissue - Leg, Right Wound Culture - Final No growth aerobically. Anaerobic Culture - Preliminary No growth in 48 hours. Laboratory Tests Past 24 Hrs 01/07/18 04:20 Sodium 139 Potassium 3.4 L Chloride 97 L Carbon Dioxide 36.0 H Anion Gap 6 BUN 15 Creatinine 0.74 Estim Creat Clear Calc 113.33 Est GFR (MDRD) Af Amer 152 Est GFR (MDRD) Non-Af 126 BUN/Creatinine Ratio 20.3 H Glucose 158 H Calcium 8.3 L Medical Necessity - Tobacco Use Smoking Status: Current every day smoker Tobacco Use: Cigarettes Assessment/Plan All Active Problems Altered mental status (Acute) Acute on chronic respiratory failure with hypoxia and hypercapnia (Acute) COPD exacerbation (Acute) This is a 37 years old male patient presented to the emergency room because of altered mental status, confusion and shortness of breath, found to have acute on chronic hypoxic and hypercarbic respiratory failure requiring mechanical ventilation, also found to have healthcare associated pneumonia and large posterior right thigh abscess status post incision and drainage as well as wound VAC insertion. #1 acute on chronic hypoxic and hypercapnic respiratory failure: Status post extubation, remains stable on oxygen by nasal cannula, oxygen requirement has been decreasing and he is down to 2 L.. Clinically stable, vital signs are stable. It is multifactorial secondary to COPD, pneumonia as well as history of obstructive sleep apnea and noncompliance. Plan: Transfer to PCU. #2 healthcare associated pneumonia versus aspiration pneumonia: Remained on IV cefepime. He has been afebrile, no leukocytosis. Blood culture showed no growth in 48 hours. Sputum culture reviewed. Pneumococcal and Legionella antigen were negative. Respiratory panel for viruses as well as nasal swab for influenza a and B were negative. Plan to continue IV antibiotics at this time. #3 acute COPD exacerbation: He is on bronchodilators, antibiotics and prednisone. Status post extubation. He is maintaining his pulse ox at 2 L. Plan as above. #4 right posterior thigh abscess: Status post incision, drainage and excisional debridement, status post wound VAC insertion. Post operative day 5. He is on IV cefepime. Wound culture revealed rare gram-negative staph, gram-positive zaid. #5 acute encephalopathy/confusion: Likely due to metabolic encephalopathy secondary to hypercapnia as well as infection. Today, patient remained awake and alert. #6 hypertension: Blood pressure stable. At this time, he is not on any antihypertensive medications. #7 pulmonary hypertension: Stable, no acute issues. #8 schizophrenia/bipolar disorder: He is on risperidone and Depakene. #9 GERD: Continue Pepcid. #10 obstructive sleep apnea: Reportedly, he is not compliant with BiPAP and home oxygen. #11 DVT prophylaxis: Subcu Lovenox. This note was generated with [employer] dictation software. It may contain incorrect words, spelling, and punctuation that were not noted in checking the note before signing. Code Visit Inpatient E&M: 08351 Subs Hosp L2
[2018-01-07] MEDS: predniSONE 20 MG Tablet 40 MG PO (08:16)
[2018-01-07] MEDS: Polyethylene Glycol 3350 17 GM PACKET PO (09:55)
[2018-01-07] MEDS: Senna/Docusate Sodium 1 Tablet 2 TABLET PO (09:56)
[2018-01-07] MEDS: RisperiDONE 1 MG Tablet PO ×2 (09:57→22:53)
[2018-01-07] MEDS: Furosemide 40 MG Tablet PO ×2 (09:57→16:29)
[2018-01-07] MEDS: Famotidine 20 MG Tablet PO ×2 (09:57→22:53)
[2018-01-07] MEDS: Enoxaparin 40 MG/0.4 ML Syringe SC (09:57)
--- NOTE | 2018-01-07 10:50 | CASEMGMT ---
Addendum entered by Elisabet Flynn 01/07/18 14:21: JUNE has not heard back from Greer at [facility] so SW called her and left her a voice mail. JUNE also called [facility] [place] office and left him a voice mail requesting a return call. Elisabet HOLDEN Original Note: Addendum entered by Elisabet Flynn 01/07/18 11:01: JUNE called Greer and she said they are looking at the referral now. JUNE told her that the guardianship process has already been started. She will get back with JUNE. Elisabet HOLDEN Original Note: The assistant district attorney who will be applying for guardianship for patient came to [facility] today to see patient. JUNE gave him the Statement of Expert Evaluation. He will be going to court this am to ask the director informatics for emergency guardianship for patient. JUNE spoke with Amy in Risk Management regarding the financial part of it and a handyperson will take the check to Probate court. JUNE will contact Greer at [employer] regarding referral. Elisabet HOLDEN
--- NOTE | 2018-01-07 15:50 | CASEMGMT ---
JUNE spoke with [employer]el. He filed the papers today in court. There is a hearing scheduled for this Friday at 8:30 to see whether or not the administrative law judge will vickie emergency guardianship. He will notify Social Work when he has an answer. Right now there is still no guardianship awarded and patient is still his own decision maker. JUNE also called Greer at [facility] as SW still has not heard back from her. JUNE was told she left for the day. SW to follow up with [facility]. Elisabet GAONA MSW
[2018-01-08] VITALS (14 sets, daily range): BP systolic 103–150; BP diastolic 70–78; PULSE 77–97; RESP 12–20; TEMP 36.1–36.8; O2SAT 93–99
--- NOTE | 2018-01-08 04:15 | NURSING ---
Pt. resting in bed with Bipap off at this time. Pt. awoke easily and was very upset and angry that he was woken up at 4 in the morning. He wanted to keep sleeping. Refused to have his BP taken. Pt. angry and yelling at this nurse to leave him alone. Refused several times to have BP taken. Other VSS. Placed pt. back on bipap machine with no objection from patient.
[2018-01-08 06:53] LABS: Potassium 4.1 mmol/L (3.5-5.1)
--- NOTE | 2018-01-08 08:10 | PCM.PROGNOTE ---
Patient Problems: Active and Suspected Problems Acute on chronic respiratory failure with hypoxia and hypercapnia (Acute) COPD exacerbation (Acute) Subjective: Chief complaint: Follow-up after admission for acute on chronic hypoxic and hypercapnic respiratory failure requiring mechanical ventilation, healthcare associated pneumonia and posterior right thigh large abscess status post incision, drainage and excisional debridement and status post wound VAC insertion. Patient seen and examined. No acute events overnight. He mentioned that his breathing is okay and stable. Denied any specific symptoms. His pulse ox this morning is 92% on room air, other vital signs are stable. - Physical Exam General: Alert, Cooperative, No apparent distress HEENT: Atraumatic, PERRLA, EOMI, Normocephalic Oral: Moist Mucosa, No Gingival or Mucosal Lesions/ Ulcerations Neck: Supple, No JVD, Negative Carotid Bruits, Trachea Midline, Thyroid Normal Size and Texture Lungs: Clear to auscultation, No wheeze, No rales, Diminished, - - Decreased breath sounds bilateral, occasional rhonchi. Cardiovascular: Regular rate, Regular Rhythm, Normal S1, Normal S2, PMI Normal Abdomen: Bowel Sounds Present, Soft, Non Tender, Non-Distended, No Hepato-splenomegaly, Obese Extremities: No clubbing, No cyanosis, Edema Skin: No rashes, No breakdown Lymphatic: No Cervical, Supraclavicular, or Inguinal Adenopathy Neurological: Cranial nerves II-XII grossly intact, Motor Exam 5/5 strength throughout Psych/Mental Status: Normal Affect, Appropriate Vital Signs Temp Pulse Resp BP Pulse Ox 97.4 F L 86 20 H 155/85 H 93 01/08/18 04:15 01/08/18 07:13 01/08/18 04:15 01/07/18 23:11 01/08/18 04:15 Oxygen Flow Rate (L/min) 1 Oxygen Delivery Method Room Air Weight: 330 lb 7.567 oz Body Mass Index (BMI) 58.3 Intake and Output for Last 24 Hours 01/06/18 01/07/18 01/08/18 23:59 23:59 23:59 Intake Total 2944.9 / 2944.9 1680 / 1680 50 / 50 Output Total 4200 / 4200 1875 / 1875 0 / 0 Balance -1255.1 / -1255.1 -195 / -195 50 / 50 Microbiology Past 72 Hours 01/02/18 11:35 Gram Stain - Final Tissue - Leg, Right Wound Culture - Final No growth aerobically. Anaerobic Culture - Final No anaerobic bacteria isolated. 01/01/18 02:00 Blood Culture - Final Blood Culture (Wb) - Right Hand No growth in 5 days. 01/03/18 09:30 Gram Stain - Final Sputum, Induced/Lukens Respiratory Culture - Final Laboratory Tests Past 24 Hrs 01/08/18 06:25 Potassium 4.1 Medical Necessity - Tobacco Use Smoking Status: Current every day smoker Tobacco Use: Cigarettes Assessment/Plan All Active Problems Altered mental status (Acute) Acute on chronic respiratory failure with hypoxia and hypercapnia (Acute) COPD exacerbation (Acute) This is a 37 years old male patient presented to the emergency room because of altered mental status, confusion and shortness of breath, found to have acute on chronic hypoxic and hypercarbic respiratory failure requiring mechanical ventilation, also found to have healthcare associated pneumonia and large posterior right thigh abscess status post incision and drainage as well as wound VAC insertion. #1 acute on chronic hypoxic and hypercapnic respiratory failure: Status post extubation, remains stable on oxygen by nasal cannula at 2 L. Clinically stable, vital signs are stable. It is multifactorial secondary to COPD, pneumonia as well as history of obstructive sleep apnea and noncompliance. Plan to continue same treatment. #2 healthcare associated pneumonia versus aspiration pneumonia: Remained on IV cefepime. He has been afebrile, no leukocytosis. Blood culture showed no growth in 48 hours. Sputum culture reviewed. Pneumococcal and Legionella antigen were negative. Respiratory panel for viruses as well as nasal swab for influenza a and B were negative. #3 acute COPD exacerbation: He is on bronchodilators, antibiotics and prednisone. Status post extubation. He is maintaining his pulse ox at 2 L. Plan as above. #4 right posterior thigh abscess: Status post incision, drainage and excisional debridement, status post wound VAC insertion. Post operative day 5. He is on IV cefepime. Wound culture revealed rare gram-negative staph, gram-positive zaid. Patient needs to be evaluated by the surgeon. #5 acute encephalopathy/confusion: Likely due to metabolic encephalopathy secondary to hypercapnia as well as infection. Today, patient remained awake and alert. #6 hypertension: Blood pressure stable. At this time, he is not on any antihypertensive medications. #7 pulmonary hypertension: Stable, no acute issues. #8 schizophrenia/bipolar disorder: He is on risperidone and Depakene. #9 GERD: Continue Pepcid. #10 obstructive sleep apnea: He is on BiPAP at night. At home, he is not compliant with BiPAP and home oxygen. #11 DVT prophylaxis: Subcu Lovenox. This note was generated with [employer] dictation software. It may contain incorrect words, spelling, and punctuation that were not noted in checking the note before signing. Code Visit Inpatient E&M: 60543 Subs Hosp L2
[2018-01-08] MEDS: Nystatin Powder 15gm Bottle 1 APPLIC TOPICAL ×2 (08:17→14:38)
[2018-01-08] MEDS: predniSONE 20 MG Tablet 40 MG PO (08:17)
[2018-01-08] MEDS: Enoxaparin 40 MG/0.4 ML Syringe SC (10:01)
[2018-01-08] MEDS: Furosemide 40 MG Tablet PO ×2 (10:01→17:39)
[2018-01-08] MEDS: Famotidine 20 MG Tablet PO (10:02)
[2018-01-08] MEDS: RisperiDONE 1 MG Tablet PO (10:02)
[2018-01-08] MEDS: Senna/Docusate Sodium 1 Tablet 2 TABLET PO (10:02)
[2018-01-08] MEDS: Polyethylene Glycol 3350 17 GM PACKET PO (10:03)
[2018-01-08] MEDS: 0.9% NaCl Peripheral Flush Adult/Peds IV ×3 (10:07→21:59)
--- NOTE | 2018-01-08 10:29 | PCM.PN.INT ---
Subjective: Patient transferred out of the intensive care unit yesterday. Patient reports he is back to his baseline respiratory status. Patient was actually on room air for some time. Patient reported using BiPAP overnight, but none was documented. Patient has no respiratory complaints at this time. General: Alert, Oriented x3, Cooperative, No apparent distress, - - Still with tangential thoughts. No conversational dyspnea appreciated. Morbidly obese. HEENT: Atraumatic, PERRLA, EOMI, - - No scleral icterus or injection noted. Oral: Moist Mucosa, No Gingival or Mucosal Lesions/ Ulcerations, - - Poor dentition Neck: Supple, No JVD, No Nodes, Trachea Midline, - - Mallampati 4 Lungs: No rhonchi, No wheeze, No rales, Diminished Cardiovascular: Regular rate, Regular Rhythm, Normal S1, Normal S2, No murmurs, No rub noted, No Gallop Abdomen: Bowel Sounds Present, Soft, Non Tender, Non-Distended, Obese Extremities: No clubbing, No cyanosis, Edema Skin: Incision - Clean, dry and intact. Wound VAC in place. Musculoskeletal: No Tenderness to Palpation of Joints or Extremities, No Muscle Wasting Lymphatic: No Cervical, Supraclavicular, or Inguinal Adenopathy Neurological: Cranial nerves II-XII grossly intact, Neuro grossly intact, Motor Exam 5/5 strength throughout Psych/Mental Status: Appropriate, Anxious Vital Signs Temp Pulse Resp BP Pulse Ox 36.3 C L 86 20 H 155/85 H 93 01/08/18 04:15 01/08/18 07:13 01/08/18 04:15 01/07/18 23:11 01/08/18 07:05 Oxygen Flow Rate (L/min) 1 Oxygen Delivery Method Room Air Weight: 149.9 kg Body Mass Index (BMI) 58.3 Intake and Output for Last 24 Hours 01/06/18 01/07/18 01/08/18 23:59 23:59 23:59 Intake Total 2944.9 / 2944.9 1680 / 1680 50 / 50 Output Total 4200 / 4200 1875 / 1875 0 / 0 Balance -1255.1 / -1255.1 -195 / -195 50 / 50 Labs (Last 48 Hours) 01/07/18 01/08/18 04:20 06:25 Sodium 139 Potassium 3.4 L 4.1 Chloride 97 L Carbon Dioxide 36.0 H Anion Gap 6 BUN 15 Creatinine 0.74 Estim Creat Clear Calc 113.33 Est GFR (MDRD) Af Amer 152 Est GFR (MDRD) Non-Af 126 BUN/Creatinine Ratio 20.3 H Glucose 158 H Calcium 8.3 L Microbiology 01/02/18 11:35 Tissue - Leg, Right Gram Stain - Final 01/02/18 11:35 Tissue - Leg, Right Wound Culture - Final No growth aerobically. 01/02/18 11:35 Tissue - Leg, Right Anaerobic Culture - Final No anaerobic bacteria isolated. 01/01/18 02:00 Blood Culture (Wb) - Right Hand Blood Culture - Final No growth in 5 days. Medical Necessity - Tobacco Use Smoking Status: Current every day smoker Tobacco Use: Cigarettes Assessment/Plan All Active Problems Altered mental status (Acute) Acute on chronic respiratory failure with hypoxia and hypercapnia (Acute) COPD exacerbation (Acute) RECOMMENDATIONS: 1. Walking oximetry prior to discharge 2. Continue scheduled bronchodilators and wean steroids over 12-14 days. 3. Continue antibiotics per primary service. 4. Continue Lovenox and Pepcid for ICU prophylaxis 5. Continue local wound care, following surgical I&D of thigh abscess 6. Transition to p.o. Lasix, potassium supplementation by mouth 7. Continue sliding scale insulin coverage and bowel regimen 8. Okay to discharge from my perspective IMPRESSIONS: 1. Acute on chronic combined respiratory failure Likely multifactorial in etiology. Patient has done well following extubation. Patient is receiving schedule bronchodilators and prednisone therapy. Likely okay to decrease diuretic therapy. Prednisone will be weaned to 30 mg tomorrow. Patient likely okay to be discharged from a pulmonary perspective. 2. Hypercarbic encephalopathy Improving with correction of his underlying acid-base disturbance. Continue supportive measures as noted above. Patient may be in a manic phase at this time secondary to steroid therapy. Potentially decrease steroids tomorrow. 3. Severe obstructive sleep apnea, noncompliant with the use of nocturnal PAP therapy/alveolar hypoventilation secondary to obesity Bilevel therapy can be initiated with naps and nightly per the recommendations of his previous polysomnogram, 17/11 cm of water + 3 L/min supplemental oxygen bleed. Unclear if patient will be compliant with therapy. 4. Ongoing tobacco dependence Smoking cessation is strongly advisable. The patient can be offered nicotine replacement therapy while admitted to the hospital. 5. Medical noncompliance/bipolar disorder/hypertension/GERD/inadequate material resources Complicates care, management, recovery and prognosis. Social work and case management are following to assist with disposition. 6. Severe sepsis secondary to thigh abscess (present on admission) Thigh abscess has been drained. Wound VAC is in place. Patient has been hemodynamically stable. Patient is on appropriate antibiotics. Defer to primary service on length of antibiotic therapy. Code Visit Inpatient E&M: 65817 Subs Hosp L2
--- NOTE | 2018-01-08 15:08 | CASEMGMT ---
Social Work Call placed to Greer at [facility]. Greer states both [facility] and [place] [facility] have determined that they cannot accept pt. Phone call to Emelia at [facility] and beds available, referral faxed. Emelia returned call and they are unable to accept pt. Phone call to Gina at [facility]. Referral made. They are able to accept pt and feel he would be most appropriate at [facility]. Precert to be started today. Per Gina, 7000 form can be completed. SW will continue to follow for SNF placement. Plan: [facility], pending insurance authorization OLAF Pimentel
--- NOTE | 2018-01-08 18:33 | PCM.PN.SRG ---
Patient Problems: Active and Suspected Problems Acute on chronic respiratory failure with hypoxia and hypercapnia (Acute) COPD exacerbation (Acute) Subjective: Postop #6 Patient is resting comfortably. - Physical Exam General: Confused - has history of schizophrenia. HEENT: HAROLDO ALEJANDRE Neck: Supple Abdomen: Soft, Non-Distended Extremities: No clubbing, No cyanosis, Edema - mild edema in lower extremities. Skin: Ulcer/ Wound - right upper posterior medial thigh wound is clean with some granulation tissue. A little fat necrosis present. VAC in place. Minimal drainage in canister. Neurological: Cranial nerves II-XII grossly intact Psych/Mental Status: Delusions - He was talking to the TV when I was in the room. He was not paying attention to me. He was waving his fist at the TV. He has a history of schizophrenia. Vital Signs Temp Pulse Resp BP Pulse Ox 98.2 F 90 18 137/77 H 93 01/08/18 15:15 01/08/18 15:15 01/08/18 15:15 01/08/18 15:15 01/08/18 15:15 Oxygen Flow Rate (L/min) 1 Oxygen Delivery Method Nasal Cannula Weight: 330 lb 7.567 oz Body Mass Index (BMI) 58.3 Intake and Output for Last 24 Hours 01/06/18 01/07/18 01/08/18 23:59 23:59 23:59 Intake Total 2944.9 / 2944.9 1680 / 1680 1050 / 1050 Output Total 4200 / 4200 1875 / 1875 1100 / 1100 Balance -1255.1 / -1255.1 -195 / -195 -50 / -50 Microbiology Past 72 Hours 01/02/18 11:35 Gram Stain - Final Tissue - Leg, Right Wound Culture - Final No growth aerobically. Anaerobic Culture - Final No anaerobic bacteria isolated. 01/01/18 02:00 Blood Culture - Final Blood Culture (Wb) - Right Hand No growth in 5 days. Laboratory Tests Past 24 Hrs 01/08/18 06:25 Potassium 4.1 Medical Necessity - Tobacco Use Smoking Status: Current every day smoker Tobacco Use: Cigarettes Assessment/Plan All Active Problems Altered mental status (Acute) Acute on chronic respiratory failure with hypoxia and hypercapnia (Acute) COPD exacerbation (Acute) 1. Draining abscess cluster right upper posterior medial thigh. 2. s/p surgical preparation right upper posterior medial thigh with incision and drainage and excisional debridement draining abscess cluster (105 cm2). 3. Smoker. Wound is stable with no further evidence of infection. Continue Cefepime. Operative culture shows Coag negative Staph and Gram positive zaid. VAC in place. To be changed three times per week at 150 mmHg continuous suction. Minimal drainage in the canister. Prealbumin is 22.9. Encourage nutritional supplementation with protein to help the healing process. After discharge, can followup at the [facility]. If there is a plateau in the healing process, can proceed with delayed closure with skin grafting. Encouraged patient to stop smoking as it may have deleterious effects on wound healing.
--- NOTE | 2018-01-08 19:00 | NURSING ---
PT VERY AGGITATED AND YELLING AT STAFF. PT CURLED UP FIST LIKE GOING TO HIT NURSE. UNABLE TO REASON WITH PT. NOTIFIED SERAQUEL ORDERED. 1937 PT COOKIE AGGIATED AND UNABLE TO GIVE ORAL MEDS AT THIS TIME.. CHARGE NURSE NOTIFIED OF PT YELLING AND UNABLE TO REASON W HIM
[2018-01-08] MEDS: Ipratropium/Albuterol Sulfate 3 ML AMPUL.NEB INHALATION (19:03)
[2018-01-08] MEDS: Ziprasidone IM 20 MG/ML VIAL 10 MG IM (20:23)
--- NOTE | 2018-01-08 20:25 | NURSING ---
PT TRYING TO CALL 911. PT NOT COOPERATIVE AT THIS TIME. PT YELLS AND WILL NOT ALLOW WOUND VAC TO BE RE APPLIED. BRAXTON LEDESMA GIVEN
--- NOTE | 2018-01-08 20:44 | NURSING ---
Around 1999 entered patient's room d/t patient very aggitated, screaming, wanting to leave. He pulled off his wound vac tubing, he did let me look at his thigh dressing and dressing is intact but wound vac is not to suction. He will not let this nurse put wound vac on or take off dressing to pack, he is very aggitated, screaming wanted to sign out. Much encouragement given to him and explained why we need to put dressing and wound vac on but he is very demanding he will not let anyone touch his leg. He remains sitting in chair.
--- NOTE | 2018-01-08 20:48 | NURSING ---
2030 Security here, patient is very mad, he wants to go home, he wants to go to an [place] doctor to work on his leg, he wants to go to a [facility] hospital, he wants to leave. Discussed with him, we want him to be safe, we are concerned about his leg wound. He is very unreasonable, will not listen to staff, rambles. Food provided, he remains sitting in chair, will continue to monitor.
--- NOTE | 2018-01-08 21:37 | NURSING ---
PT CALM BUT STILL REFUSING CARE AT THIS TIME. PT WILL NOT ALLOW WOUND VAC TO BE PUT BACK ON. REFUSING MEDS
[2018-01-08] MEDS: QUEtiapine 25 MG Tablet PO (21:52)
--- NOTE | 2018-01-08 22:34 | NURSING ---
pt given jello but still refuses to have the wound vac placed. will monitor . pt is calm at this time.
--- NOTE | 2018-01-08 23:01 | NURSING ---
WENT INTO PT ROOM TO REMOVE THE WOUND VAC DRESSING. PT AGREED TO HAVE DRESSING CHANGE THEN CHANGED HIS MIND. PT BEGAN YELLING AND VERBALLY ABUSE TO NURSE.
--- NOTE | 2018-01-08 23:30 | NURSING ---
HEARING AID FITTER AND CHARGE NURSE NOTIFIED THAT UNABLE TO CHANGE DRESSING TO WET TO DRY ON THIGH BECAUSE PT WILL NOT ALLOW
[2018-01-09 02:51] VITALS: BP 127/80; PULSE 85; RESP 20; TEMP 36.3; O2SAT 92
--- NOTE | 2018-01-09 03:10 | CPS ---
pt refused to wear bipap tonight
[2018-01-09 03:39] VITALS: PULSE 84
--- NOTE | 2018-01-09 03:55 | NURSING ---
0251 pt calm and allowing this nurse to get bp and vitals. pt would not allow me to look or to change the wound vac dressing. Pt just keeps saying no. informed pt that the dressing needs to be changed because of infection. pt responded well we have the bridge and it is going to rain. when ask pt where he is askers name, place and date correctly.
--- NOTE | 2018-01-09 07:06 | NURSING ---
went into pt room to give him his 6am meds. Pt refused meds and said i want my shrubs. you cant hold me hostage anymore. Pt raised his voice , attempted to reason w pt but unsuccessful
[2018-01-09 07:15] VITALS: PULSE 90
[2018-01-09 07:20] VITALS: PULSE 98; RESP 20
[2018-01-09] MEDS: Ipratropium/Albuterol Sulfate 3 ML AMPUL.NEB INHALATION (07:28)
--- NOTE | 2018-01-09 08:38 | PCM.PROGNOTE ---
Patient Problems: Active and Suspected Problems Acute on chronic respiratory failure with hypoxia and hypercapnia (Acute) COPD exacerbation (Acute) Subjective: Patient did okay overnight. Patient reportedly did get agitated with staff after he had removed the wound VAC on his thigh. Nursing staff was unable to address the situation secondary to concerns for violence. Patient denies any symptoms this morning. Patient is currently on room air. - Physical Exam General: Alert, Cooperative, No apparent distress, - - Very tangential in thoughts. No aggression on my evaluation. Appears older than stated age. HEENT: Atraumatic, PERRLA, EOMI, Normocephalic, - - Slight injection without icterus. Alopecia noted. Oral: Moist Mucosa, No Gingival or Mucosal Lesions/ Ulcerations Neck: Supple, No JVD, No Nodes, Trachea Midline Lungs: No rhonchi, No wheeze, No rales, Diminished, - - Symmetric expansion. No dullness to percussion. Cardiovascular: Regular rate, Regular Rhythm, Normal S1, Normal S2, No murmurs, No rub noted, No Gallop Abdomen: Bowel Sounds Present, Soft, Non Tender, Non-Distended, Obese Extremities: No clubbing, No cyanosis, Capillary Refill Less than 3 Seconds, Edema - 3+ lower extremity Skin: - - Patient not cooperative with wound examination. Wound VAC has been removed. No signs of exudate or erythema at this time. Musculoskeletal: No Tenderness to Palpation of Joints or Extremities Lymphatic: No Cervical, Supraclavicular, or Inguinal Adenopathy Neurological: Cranial nerves II-XII grossly intact, Neuro grossly intact, Motor Exam 5/5 strength throughout Psych/Mental Status: Anxious, Impulsive, Restless Vital Signs Temp Pulse Resp BP Pulse Ox 36.3 C L 90 20 H 127/80 H 92 01/09/18 02:51 01/09/18 07:15 01/09/18 02:51 01/09/18 02:51 01/09/18 02:51 Oxygen Flow Rate (L/min) 1 Oxygen Delivery Method Room Air Weight: 145.6 kg Body Mass Index (BMI) 58.3 Intake and Output for Last 24 Hours 01/07/18 01/08/18 01/09/18 23:59 23:59 23:59 Intake Total 1680 / 1680 2350 / 2350 240 / 240 Output Total 1875 / 1875 1999 900 / 900 Balance -195 / -195 350 / 350 -660 / -660 Microbiology Past 72 Hours 01/02/18 11:35 Gram Stain - Final Tissue - Leg, Right Wound Culture - Final No growth aerobically. Anaerobic Culture - Final No anaerobic bacteria isolated. 01/01/18 02:00 Blood Culture - Final Blood Culture (Wb) - Right Hand No growth in 5 days. Medical Necessity - Tobacco Use Smoking Status: Current every day smoker Tobacco Use: Cigarettes Assessment/Plan All Active Problems Altered mental status (Acute) Acute on chronic respiratory failure with hypoxia and hypercapnia (Acute) COPD exacerbation (Acute) RECOMMENDATIONS: 1. Walking oximetry prior to discharge 2. Continue scheduled bronchodilators and wean steroids over 12-14 days. 3. Continue antibiotics per primary service. 4. Defer to Dr. Beal on recommendations if wound VAC will not be tolerated 5. Continue with diuretic therapy, potassium supplementation as indicated 6. Consider increase in Risperdal therapy 7. Continue sliding scale insulin coverage and bowel regimen 8. Okay to transition to ECF from a pulmonary perspective IMPRESSIONS: 1. Acute on chronic combined respiratory failure Likely multifactorial in etiology. Patient has done well following extubation. Patient is receiving scheduled bronchodilators and prednisone therapy. Continuing diuretic therapy. Prednisone weaned to 30 mg. Patient likely okay to be discharged from a pulmonary perspective. Patient should have a walking oximetry prior to discharge to ensure no significant desaturation. 2. Hypercarbic encephalopathy Improving with correction of his underlying acid-base disturbance. Continue supportive measures as noted above. Patient may be in a manic phase at this time secondary to steroid therapy. Steroids decreased. This may help with agitation overnight. 3. Severe obstructive sleep apnea, noncompliant with the use of nocturnal PAP therapy/alveolar hypoventilation secondary to obesity Bilevel therapy can be initiated with naps and nightly per the recommendations of his previous polysomnogram, 17/11 cm of water + 3 L/min supplemental oxygen bleed. Unclear if patient will be compliant with therapy. 4. Ongoing tobacco dependence Smoking cessation is strongly advisable. The patient can be offered nicotine replacement therapy while admitted to the hospital. 5. Medical noncompliance/bipolar disorder/hypertension/GERD/inadequate material resources Complicates care, management, recovery and prognosis. Social work and case management are following to assist with disposition. 6. Severe sepsis secondary to thigh abscess (present on admission) Thigh abscess has been drained. Wound VAC is no longer in place. Patient has been hemodynamically stable. Patient is on appropriate antibiotics. Defer to primary service on length of antibiotic therapy. Defer to Dr. Beal. Patient will be a high risk for development of cellulitis with possible leg amputation if wound is left in current situation with the amount of edema noted in the legs. Code Visit Inpatient E&M: 47539 Subs Hosp L2
--- NOTE | 2018-01-09 09:47 | CASEMGMT ---
SW received a message from Jockey Agent Tevin Jean Baptiste. He was awarded emergency guardianship until Friday at 11am when there will be another hearing to decided if the guardianship will continue. Patient is threatening to leave AMA. He is up walking around. He pulled his wound vac off. SW called Jockey Agent Markel cell phone and office phone leaving him messages letting him know above. JUNE also spoke with Marisela from [facility]. Gina is not available today so JUNE will need to communicate with her. Her phone number is [phone] and fax number for orders is [phone]. Elisabet GAONA MSW
--- NOTE | 2018-01-09 10:17 | PN_ITS ---
Patient Problems: Active and Suspected Problems Acute on chronic respiratory failure with hypoxia and hypercapnia (Acute) COPD exacerbation (Acute) Subjective: Chief complaint: Follow-up after admission for acute on chronic hypoxic and hypercapnic respiratory failure requiring mechanical ventilation, healthcare associated pneumonia and posterior right thigh large abscess status post incision, drainage and excisional debridement and status post wound VAC insertion. Patient seen and examined. No acute events overnight. He took off his wound VAC overnight thinking that it is missing up with his vein?. This morning, he was frustrated and upset because he thinks that he is locked. He was threatening to leave AGAINST MEDICAL ADVICE. Vital signs are stable. - Physical Exam General: Alert, Cooperative, No apparent distress HEENT: Atraumatic, PERRLA, EOMI, Normocephalic Oral: Moist Mucosa, No Gingival or Mucosal Lesions/ Ulcerations Neck: Supple, No JVD, Negative Carotid Bruits, Thyroid Normal Size and Texture Lungs: Clear to auscultation, No rhonchi, No wheeze, No rales, Diminished Cardiovascular: Regular rate, Regular Rhythm, Normal S1, Normal S2, PMI Normal Abdomen: Bowel Sounds Present, Soft, Non Tender, Non-Distended, No Hepato- splenomegaly, Obese Extremities: No clubbing, No cyanosis, Edema Skin: No rashes, Ulcer/ Wound Lymphatic: No Cervical, Supraclavicular, or Inguinal Adenopathy Neurological: Cranial nerves II-XII grossly intact, Motor Exam 5/5 strength throughout Psych/Mental Status: Agitated, Restless Vital Signs Temp Pulse Resp BP Pulse Ox 97.4 F L 98 20 H 127/80 H 92 01/09/18 02:51 01/09/18 07:20 01/09/18 07:20 01/09/18 02:51 01/09/18 02:51 Oxygen Flow Rate (L/min) 1 Oxygen Delivery Method Room Air Weight: 320 lb 15.889 oz Body Mass Index (BMI) 58.3 Intake and Output for Last 24 Hours 01/07/18 01/08/18 01/09/18 23:59 23:59 23:59 Intake Total 1680 / 1680 2350 / 2350 240 / 240 Output Total 1875 / 1875 1999 / 1999 900 / 900 Balance -195 / -195 350 / 350 -660 / -660 Microbiology Past 72 Hours 01/02/18 11:35 Gram Stain - Final Tissue - Leg, Right Wound Culture - Final No growth aerobically. Anaerobic Culture - Final No anaerobic bacteria isolated. 01/01/18 02:00 Blood Culture - Final Blood Culture (Wb) - Right Hand No growth in 5 days. Medical Necessity - Tobacco Use Smoking Status: Current every day smoker Tobacco Use: Cigarettes Assessment/Plan All Active Problems Altered mental status (Acute) Acute on chronic respiratory failure with hypoxia and hypercapnia (Acute) COPD exacerbation (Acute) This is a 37 years old male patient presented to the emergency room because of altered mental status, confusion and shortness of breath, found to have acute on chronic hypoxic and hypercarbic respiratory failure requiring mechanical ventilation, also found to have healthcare associated pneumonia and large posterior right thigh abscess status post incision and drainage as well as wound VAC insertion. #1 acute on chronic hypoxic and hypercapnic respiratory failure: Status post extubation, pulse ox maintained on room air, no oxygen requirement. Clinically stable, vital signs are stable. It is multifactorial secondary to COPD, pneumonia as well as history of obstructive sleep apnea and noncompliance. Plan to continue same treatment. #2 healthcare associated pneumonia versus aspiration pneumonia: He is on IV cefepime. He has been afebrile, no leukocytosis. Blood culture showed no growth in 48 hours. Sputum culture reviewed. Pneumococcal and Legionella antigen were negative. Respiratory panel for viruses as well as nasal swab for influenza a and B were negative. #3 acute COPD exacerbation: He is on bronchodilators, antibiotics and prednisone. Status post extubation. We will start tapering prednisone down to 30 mg p.o. daily. #4 right posterior thigh abscess: Status post incision, drainage and excisional debridement, status post wound VAC insertion. Post operative day 5. He is on IV cefepime. Wound culture revealed rare gram-negative staph, gram-positive zaid , considered as negative. Culture of the surgical specimen showed no growth. P Dr. Beal is on the case. Plan to continue IV cefepime. #5 acute encephalopathy/confusion: Likely due to metabolic encephalopathy secondary to hypercapnia as well as infection. Resolved. #6 hypertension: Blood pressure stable. At this time, he is not on any antihypertensive medications. #7 pulmonary hypertension: Stable, no acute issues. #8 schizophrenia/bipolar disorder: He is on risperidone and Depakene. #9 GERD: Continue Pepcid. #10 obstructive sleep apnea: He is on BiPAP at night. At home, he is not compliant with BiPAP and home oxygen. #11 DVT prophylaxis: Subcu Lovenox. This note was generated with [employer] dictation software. It may contain incorrect words, spelling, and punctuation that were not noted in checking the note before signing.
--- NOTE | 2018-01-09 11:13 | CASEMGMT ---
Someone from the courts came to serve patient the papers for the emergency guardianship. agile test lead accompanied the individual to deliver the papers. Nursing sanitary landfill supervisor and the cork tile floor layer were watching from a distance to ensure safety. JUNE spoke with Ela and she does not need SW to intervene as the less people involved the better with this patient. SW awaiting phone call from patient's emergency guardian. Elisabet GAONA MSW
--- NOTE | 2018-01-09 12:48 | CASEMGMT ---
JUNE received a return call from Steam Shovel Runnerleandro Jean Baptiste. He asked what [facility] can do to keep patient at [facility]. JUNE told him SW will check with rn discharge and get back with him. JUNE spoke with rn discharge and we cannot physically or chemically restrain patient. JUNE called Attorney Jean Baptiste back and left him a voice mail requesting a return call. JUNE did let him know [facility] cannot physically or chemically restrain patient. JUNE also asked if he could come to hospital to talk with patient. Await return call Attorney Jean Baptiste called JUNE back. He will come in to talk with patient. JUNE also called [facility] to see if they have insurance authorization. Elisabet GAONA MSW
--- NOTE | 2018-01-09 13:26 | PCM.TXEXTCAR ---
- Diet 01/06/18 09:24 Diet: Cardiac/Low Cholesterol Food consistency:: Regular Liquid Consistency:: Regular/Thin Is pt able to select menu?: Yes - Routine Orders/Code Status O2 Liters per Minute: 2 O2 Frequency: PRN Keep PO Greater than or Equal to (%): 92 Code Status: Full Code - Wound(s) Right inner thigh Wound Type: open surgical wound s/p I&D abscess Dressing Change: Aquacel AG with NS moistened kerlix Right groin fold Wound Type: Moisture associated excoriation Right posterior thigh Wound Type: Skin Tear Dressing Change: Adaptic Right Upper Thigh Wound Type: blister - Suggestions for Active Care Change Position every (hours): 3 Hours to sit in a chair: 2 Times a day to sit in chair: 3 - Therapies Weight Bearing: Weight bearing as tolerated Physical Therapy: Eval and Treat Occupational Therapy: Eval and Treat - Allergies/Procedures Done in Hospital Allergies/Adverse Reactions: Allergies PINK EYE MEDICATION Allergy (Uncoded 12/14/17 23:29) Unknown - Type of Care/Length of Stay Estimated LOS: Convalescent Care Less Than 30 days Type of Care Needed: Skilled Rehab Potential: Good Prognosis: Good - Additional Orders/Day of Discharge Additional Orders: 1- follow up with the Counseling center in 1 week. 2- Follow up with the Wound care center and . 3- Dry, sterile dressing to the medial right thigh, instructions per . H&P will serve as current which was dated: 12/31/17 Day of Discharge: 01/09/18 - Dietary and Speech Recommendations Dietitian Recommendations/Changes: Suggest diet change to 2200 calorie controlled, cardiac, low sodium diet with FR as needed. - Follow Up Care Primary Care Physician: Care Physician,No Primary [Primary Care Provider] - Please follow up with your Primary Care Physician in: 1 week. Please Follow Up With: Sandro Beal MD When: call his office.
--- NOTE | 2018-01-09 15:35 | CASEMGMT ---
Patient is agreeing to stay at [facility] and then go to SNF. JUNE obtained a copy of the guardianship letter. SW faxed orders to [facility]. Spoke with Marisela and they did obtain pre-cert. Called [facility] and arranged for patient to get picked up [phone] via cot. JUNE notified RNMarisela at [facility], and patient's guardian. JUNE also let patient's corporate associate attorney who will be representing him on Friday know the address and phone number of [facility]. Plan: d/c to [facility] under skilled level of care on a convalescent stay. [facility] transported him via cot. Elisabet GAONA MSW
--- NOTE | 2018-01-09 15:40 | NURSING ---
report called to Reese CARRANZA
--- NOTE | 2018-01-10 10:54 | PCM.DC.SUM ---
Discharge Date and Diagnosis Date of Admission: 12/31/17 Date of Discharge: 01/09/18 - Primary Discharge Diagnosis #1 acute on chronic hypoxic and hypercapnic respiratory failure. #2 healthcare associated pneumonia versus aspiration pneumonia. #3 acute COPD exacerbation. #4 right posterior thigh abscess status post incision, drainage and excisional debridement. #5 acute metabolic encephalopathy. - Secondary Discharge Diagnosis Chronic Problems Morbid obesity (Chronic) SHANAE (obstructive sleep apnea) (Chronic) Chronic respiratory failure with hypoxia (Chronic) Tobacco use (Chronic) HTN (hypertension) (Chronic) GERD (gastroesophageal reflux disease) (Chronic) Bipolar disorder (Chronic) Schizophrenia (Chronic) Hospital Course and Treatment Imaging Results: Clinical Impression(s) from Imaging Studies Chest X-Ray 12/31/17 20:02 IMPRESSION: Moderate cardiomegaly. No acute cardiopulmonary disease process is seen. Electronically Signed: Kiran Gorman MD at 20:26 EDT , Service support , Chest X-Ray 12/31/17 23:45 IMPRESSION: Interval placement of an NG tube and ET tube with the ET tube at 2.5 cm above the nitza. Cardiomegaly. No acute findings in the lungs Electronically Signed: Jayant Lewis, at 0:28 EDT Tel , Service support , Chest CTA 01/01/18 08:05 IMPRESSION: There is no evidence of pulmonary embolism. Patchy infiltrates in the left upper lobe as well as in both lower lobes worse on the left side. Electronically Signed: Silvano Ulloa MD at 11:19 EDT Tel [phone], Service support , Pelvis CT 01/01/18 10:20 IMPRESSION: No perineal abscess is seen. Increased markings in the soft tissues overlying the lateral aspect of the right thigh. Electronically Signed: Silvano Ulloa MD at 12:30 EDT Tel [phone], Service support , Chest X-Ray 01/02/18 05:00 IMPRESSION: Cardiomegaly. An area of a single platelike atelectatic change in the left costophrenic angle. An ET tube is in place with the tip 3.7 cm above the nitza Electronically Signed: Jayant Lewis, at 6:37 EDT Tel , Service support , Chest X-Ray 01/02/18 12:51 IMPRESSION: Progressive infiltrate and/or atelectasis in the left lower lobe with blunting of left costophrenic angle. Increased markings in the left upper lobe. Follow-up is recommended. Electronically Signed: Silvano Ulloa MD at 13:43 EDT Tel [phone], Service support , Chest X-Ray 01/03/18 08:32 IMPRESSION: 1. No suspicious pneumonia. 2. Clearing of linear vertical atelectasis in the left upper lobe. 3. Decrease subsegmental atelectasis in the left lower lobe. Electronically Signed: Ishaan Duenas MD at 12:54 EDT , Service support , Consultations 01/05/18 07:04 Consult: Onc/Wound/brick chimney builder Routine Comment: Reason for Consult:: VAC right medial thigh Dr. Hughes/Dr. Bolaños, critical care. Dr. Beal, plastic surgery. Operations: None Procedures: EKG, Intubation, - - Incision, drainage and excisional debridement of right posterior thigh abscess. Summary of Care Provided: This is a 37 years old male patient presented to the emergency room because of altered mental status, confusion and shortness of breath, found to have acute on chronic hypoxic and hypercarbic respiratory failure requiring mechanical ventilation, also found to have healthcare associated pneumonia and large posterior right thigh abscess status post incision and drainage as well as wound VAC insertion. #1 acute on chronic hypoxic and hypercapnic respiratory failure: Required admission to ICU, intubation and mechanical ventilation. Patient was treated with IV antibiotics, IV steroids and bronchodilators as well as mechanical ventilation and he was extubated successfully. It is multifactorial secondary to COPD, pneumonia as well as history of obstructive sleep apnea and noncompliance. After extubation, oxygen requirement decreased and he was able to maintain his pulse ox on room air. Patient discharged to long term facility on oxygen only as needed. #2 healthcare associated pneumonia versus aspiration pneumonia: Treated with 9 days of IV cefepime. Blood culture showed no growth in 5 days. Sputum culture reviewed. Pneumococcal and Legionella antigen were negative. Respiratory panel for viruses as well as nasal swab for influenza a and B were negative. Patient was discharged on Augmentin for 5 days. #3 acute COPD exacerbation: Status post extubation, treated with IV antibiotics, IV steroids and bronchodilators. Patient discharged to long term facility on tapering course of prednisone as well as DuoNeb and albuterol. #4 right posterior thigh abscess: Status post incision, drainage and excisional debridement, status post wound VAC insertion that was done by Dr. Beal. Received a total of 8 days of IV cefepime. Wound culture revealed rare gram-negative staph, gram-positive zaid, considered as negative. Culture of the surgical specimen showed no growth. Patient took off the wound VAC and he refused to have it back on. I spoke with the patient on multiple occasions about the importance of using the wound VAC to help wound healing and he kept going claiming that the wound VAC is missing up his veins. I tried to explain to him that the wound VAC will not cause any problems to his veins but he could not understand. Patient was discharged to long term facility, recommended dry sterile dressing to his wound of the posterior thigh follow-up with wound care center and Dr. Beal and Dr. Beal is aware that patient took off the wound VAC. #5 acute encephalopathy/confusion: Likely due to metabolic encephalopathy secondary to hypercapnia as well as infection. Resolved. #6 schizophrenia/bipolar disorder: Discharged on risperidone and Depakene. Recommend follow-up with counseling center and psychiatry as outpatient #7 obstructive sleep apnea: Patient has been on BiPAP and oxygen at home before admission but reportedly, is not compliant. After extubation, he did well and he was able to maintain his oxygen on room air. He discharged only on room air as needed Patient discharged to long term facility in a stable medical condition, discharged on Augmentin for 5 days of treatment, discharged on Lasix 40 mg p.o. twice daily, discharged on albuterol and DuoNeb, discharged on tapering course of prednisone, discharged on risperidone and valproic acid, recommended follow-up with PCP in 1 week, follow-up with Dr. Beal according to his recommendation and recommended follow-up with the counseling center and psychiatric as outpatient. This note was generated with [employer] dictation software. It may contain incorrect words, spelling, and punctuation that were not noted in checking the note before signing. Home Medications: Medications to take at Discharge Albuterol Aerosols [Ventolin Aerosols] 2.5 mg INHALATION Q4H PRN PRN #1 vial.neb. 01/09/18 Amox/Clavulanate Tablet [Augmentin Tablet] 875 mg PO Q12H #10 tab 01/09/18 Famotidine [Pepcid] 20 mg PO BID #30 tab 01/09/18 Furosemide [Lasix] 40 mg PO BID@1000,1800 #90 tab 01/09/18 Ipratropium/Albuterol Sulfate [Duoneb] 3 ml INHALATION Q6HWA.RT #1 ampul.neb 01/09/18 Magnesium Hydroxide [Milk Of Magnesia] 30 ml PO DAILY PRN PRN #1 udc 01/09/18 Prednisone 10 mg PO DAILY #30 tab 01/09/18 Risperidone [Risperdal] 1 mg PO BID #90 tab 01/09/18 Valproic Acid [Depakene] 250 mg PO TID #90 cap 01/09/18 Following Prescrptions Were Given to Patient: Albuterol Aerosols [Ventolin Aerosols] 2.5 mg INHALATION Q4H PRN PRN #1 vial.neb. PRN Reason: SOB &/OR WHEEZING Ipratropium/Albuterol Sulfate [Duoneb] 3 ml INHALATION Q6HWA.RT #1 ampul.neb Amox/Clavulanate Tablet [Augmentin Tablet] 875 mg PO Q12H #10 tab Furosemide [Lasix] 40 mg PO BID@1000,1800 #90 tab Magnesium Hydroxide [Milk Of Magnesia] 30 ml PO DAILY PRN PRN #1 udc PRN Reason: Constipation Prednisone 10 mg PO DAILY #30 tab Famotidine [Pepcid] 20 mg PO BID #30 tab Risperidone [Risperdal] 1 mg PO BID #90 tab Valproic Acid [Depakene] 250 mg PO TID #90 cap Primary Care Physician: Care Physician,No Primary [Primary Care Provider] - Please follow up with your Primary Care Physician in: 1 week. Please Follow Up With: Sandro Beal MD When: call his office. Disposition: Senior Care facility Minutes spent on discharge:: 35 Patient Condition:: Stable Medical Necessity - Tobacco Use Smoking Status: Current every day smoker Tobacco Use: Cigarettes Meaningful Use Info Meaningful Use Diagnoses (Choose all that apply): None applicable Code Visit Please ignore the code visit in the progress notes on January 09, 2018 and use the code on the discharge summary. Inpatient E&M: 89141 Disch Hosp
--- NOTE | 2018-01-10 11:04 | DS.PCM_ITS ---
Discharge Date and Diagnosis Date of Admission: 12/31/17 Date of Discharge: 01/09/18 - Primary Discharge Diagnosis #1 acute on chronic hypoxic and hypercapnic respiratory failure. #2 healthcare associated pneumonia versus aspiration pneumonia. #3 acute COPD exacerbation. #4 right posterior thigh abscess status post incision, drainage and excisional debridement. #5 acute metabolic encephalopathy. - Secondary Discharge Diagnosis Chronic Problems Morbid obesity (Chronic) SHANAE (obstructive sleep apnea) (Chronic) Chronic respiratory failure with hypoxia (Chronic) Tobacco use (Chronic) HTN (hypertension) (Chronic) GERD (gastroesophageal reflux disease) (Chronic) Bipolar disorder (Chronic) Schizophrenia (Chronic) Hospital Course and Treatment Imaging Results: Clinical Impression(s) from Imaging Studies Chest X-Ray 12/31/17 20:02 IMPRESSION: Moderate cardiomegaly. No acute cardiopulmonary disease process is seen. Electronically Signed: Kiran Gorman MD at 20:26 EDT , Service support , Chest X-Ray 12/31/17 23:45 IMPRESSION: Interval placement of an NG tube and ET tube with the ET tube at 2.5 cm above the nitza. Cardiomegaly. No acute findings in the lungs Electronically Signed: Jayant Lewis, at 0:28 EDT Tel , Service support , Chest CTA 01/01/18 08:05 IMPRESSION: There is no evidence of pulmonary embolism. Patchy infiltrates in the left upper lobe as well as in both lower lobes worse on the left side. Electronically Signed: Silvano Ulloa MD at 11:19 EDT Tel [phone], Service support , Pelvis CT 01/01/18 10:20 IMPRESSION: No perineal abscess is seen. Increased markings in the soft tissues overlying the lateral aspect of the right thigh. Electronically Signed: Silvano Ulloa MD at 12:30 EDT Tel [phone], Service support , Chest X-Ray 01/02/18 05:00 IMPRESSION: Cardiomegaly. An area of a single platelike atelectatic change in the left costophrenic angle. An ET tube is in place with the tip 3.7 cm above the nitza Electronically Signed: Jayant Lewis, at 6:37 EDT Tel , Service support , Chest X-Ray 01/02/18 12:51 IMPRESSION: Progressive infiltrate and/or atelectasis in the left lower lobe with blunting of left costophrenic angle. Increased markings in the left upper lobe. Follow-up is recommended. Electronically Signed: Silvano Ulloa MD at 13:43 EDT Tel [phone], Service support , Chest X-Ray 01/03/18 08:32 IMPRESSION: 1. No suspicious pneumonia. 2. Clearing of linear vertical atelectasis in the left upper lobe. 3. Decrease subsegmental atelectasis in the left lower lobe. Electronically Signed: Ishaan Duenas MD at 12:54 EDT , Service support , Consultations 01/05/18 07:04 Consult: Onc/Wound/dot compliance manager Routine Comment: Reason for Consult:: VAC right medial thigh Dr. Hughes/Dr. Bolaños, critical care. Dr. Beal, plastic surgery. Operations: None Procedures: EKG, Intubation, - - Incision, drainage and excisional debridement of right posterior thigh abscess. Summary of Care Provided: This is a 37 years old male patient presented to the emergency room because of altered mental status, confusion and shortness of breath, found to have acute on chronic hypoxic and hypercarbic respiratory failure requiring mechanical ventilation, also found to have healthcare associated pneumonia and large posterior right thigh abscess status post incision and drainage as well as wound VAC insertion. #1 acute on chronic hypoxic and hypercapnic respiratory failure: Required admission to ICU, intubation and mechanical ventilation. Patient was treated with IV antibiotics, IV steroids and bronchodilators as well as mechanical ventilation and he was extubated successfully. It is multifactorial secondary to COPD, pneumonia as well as history of obstructive sleep apnea and noncompliance. After extubation, oxygen requirement decreased and he was able to maintain his pulse ox on room air. Patient discharged to senior living facility on oxygen only as needed. #2 healthcare associated pneumonia versus aspiration pneumonia: Treated with 9 days of IV cefepime. Blood culture showed no growth in 5 days. Sputum culture reviewed. Pneumococcal and Legionella antigen were negative. Respiratory panel for viruses as well as nasal swab for influenza a and B were negative. Patient was discharged on Augmentin for 5 days. #3 acute COPD exacerbation: Status post extubation, treated with IV antibiotics , IV steroids and bronchodilators. Patient discharged to senior living facility on tapering course of prednisone as well as DuoNeb and albuterol. #4 right posterior thigh abscess: Status post incision, drainage and excisional debridement, status post wound VAC insertion that was done by Dr. Beal. Received a total of 8 days of IV cefepime. Wound culture revealed rare gram- negative staph, gram-positive zaid, considered as negative. Culture of the surgical specimen showed no growth. Patient took off the wound VAC and he refused to have it back on. I spoke with the patient on multiple occasions about the importance of using the wound VAC to help wound healing and he kept going claiming that the wound VAC is missing up his veins. I tried to explain to him that the wound VAC will not cause any problems to his veins but he could not understand. Patient was discharged to senior living facility, recommended dry sterile dressing to his wound of the posterior thigh follow-up with wound care center and Dr. Beal and Dr. Beal is aware that patient took off the wound VAC. #5 acute encephalopathy/confusion: Likely due to metabolic encephalopathy secondary to hypercapnia as well as infection. Resolved. #6 schizophrenia/bipolar disorder: Discharged on risperidone and Depakene. Recommend follow-up with counseling center and psychiatry as outpatient #7 obstructive sleep apnea: Patient has been on BiPAP and oxygen at home before admission but reportedly, is not compliant. After extubation, he did well and he was able to maintain his oxygen on room air. He discharged only on room air as needed Patient discharged to senior living facility in a stable medical condition, discharged on Augmentin for 5 days of treatment, discharged on Lasix 40 mg p.o. twice daily, discharged on albuterol and DuoNeb, discharged on tapering course of prednisone, discharged on risperidone and valproic acid, recommended follow- up with PCP in 1 week, follow-up with Dr. Beal according to his recommendation and recommended follow-up with the counseling center and psychiatric as outpatient. This note was generated with [employer] dictation software. It may contain incorrect words, spelling, and punctuation that were not noted in checking the note before signing. Home Medications: Medications to take at Discharge Albuterol Aerosols [Ventolin Aerosols] 2.5 mg INHALATION Q4H PRN PRN #1 vial.neb. 01/09/18 Amox/Clavulanate Tablet [Augmentin Tablet] 875 mg PO Q12H #10 tab 01/09/18 Famotidine [Pepcid] 20 mg PO BID #30 tab 01/09/18 Furosemide [Lasix] 40 mg PO BID@1000,1800 #90 tab 01/09/18 Ipratropium/Albuterol Sulfate [Duoneb] 3 ml INHALATION Q6HWA.RT #1 ampul.neb Magnesium Hydroxide [Milk Of Magnesia] 30 ml PO DAILY PRN PRN #1 udc 01/09/18 Prednisone 10 mg PO DAILY #30 tab 01/09/18 Risperidone [Risperdal] 1 mg PO BID #90 tab 01/09/18 Valproic Acid [Depakene] 250 mg PO TID #90 cap 01/09/18 Following Prescrptions Were Given to Patient: Albuterol Aerosols [Ventolin Aerosols] 2.5 mg INHALATION Q4H PRN PRN #1 vial.neb. PRN Reason: SOB &/OR WHEEZING Ipratropium/Albuterol Sulfate [Duoneb] 3 ml INHALATION Q6HWA.RT #1 ampul.neb Amox/Clavulanate Tablet [Augmentin Tablet] 875 mg PO Q12H #10 tab Furosemide [Lasix] 40 mg PO BID@1000,1800 #90 tab Magnesium Hydroxide [Milk Of Magnesia] 30 ml PO DAILY PRN PRN #1 udc PRN Reason: Constipation Prednisone 10 mg PO DAILY #30 tab Famotidine [Pepcid] 20 mg PO BID #30 tab Risperidone [Risperdal] 1 mg PO BID #90 tab Valproic Acid [Depakene] 250 mg PO TID #90 cap Primary Care Physician: Care Physician,No Primary [Primary Care Provider] - Please follow up with your Primary Care Physician in: 1 week. Please Follow Up With: Sandro Beal MD When: call his office. Disposition: Correction facility Minutes spent on discharge:: 35 Patient Condition:: Stable Medical Necessity - Tobacco Use Smoking Status: Current every day smoker Tobacco Use: Cigarettes Meaningful Use Info Meaningful Use Diagnoses (Choose all that apply): None applicable Code Visit Please ignore the code visit in the progress notes on January 09, 2018 and use the code on the discharge summary. Inpatient E&M: 06743 [facility]
== END 2018-01-09 16:55 | disposition skilled nursing facility (03) | DRG 76 ==
LOC: ED 20:31 → ICU 22:30 → PCU 01-07 16:49
PROVIDERS: Internal Medicine; Internal Medicine Critical Care Medicine; Surgery; Admitting Provider Internal Medicine; Emergency Provider Emergency Medicine; Visit Provider Hospitalist
PROC: 0JBL0ZZ Excision of Right Upper Leg Subcutaneous Tissue and Fascia, Open Approach (ICD-10-PCS; principal; 2018-01-02 09:45)
DX: J96.21 Acute and chronic respiratory failure with hypoxia (principal); J69.0 Pneumonitis due to inhalation of food and vomit; J44.1 Chronic obstructive pulmonary disease with (acute) exacerbation; L02.415 Cutaneous abscess of right lower limb; F20.9 Schizophrenia, unspecified; J44.0 Chronic obstructive pulmonary disease with (acute) lower respiratory infection; A41.9 Sepsis, unspecified organism; J18.9 Pneumonia, unspecified organism; R65.20 Severe sepsis without septic shock; J96.22 Acute and chronic respiratory failure with hypercapnia; Y95 Nosocomial condition; G93.41 Metabolic encephalopathy; E66.01 Morbid (severe) obesity due to excess calories; G47.33 Obstructive sleep apnea (adult) (pediatric); K21.9 Gastro-esophageal reflux disease without esophagitis; F31.9 Bipolar disorder, unspecified; Z68.43 Body mass index [BMI] 50.0-59.9, adult; F17.210 Nicotine dependence, cigarettes, uncomplicated; Z59.0 Homelessness; I27.20 Pulmonary hypertension, unspecified
CPT/HCPCS: 31500; 31720; 36415; 36600; 71045; 71275; 72193; 80048; 80053; 80061; 80164; 80202; 81001; 82550; 82803; 82962; 83605; 83735; 83880; 84100; 84132; 84134; 84478; 84484; 85025; 85027; 85652; 87015; 87040; 87070; 87075; 87102; 87116; 87205; 87206; 87449; 87633; 87640; 87641; 87804; 88304; 88312; 93005; 94002; 94003; 94640; 94660; 95831; 97110; 97116; 97162; 97166; 97530; 97535; 97802; 97803; 99251; 99285; 99406; J7030; J7040; J7050; Q9967; A4216; G0463; J0330; J1940; J3486